=== PATIENT | female | born 1980 | race Hispanic/Latino ===

== ENCOUNTER 2022-01-17 14:20 | Emergency (ER) | payer BC ==
--- OUTSIDE RECORDS SUMMARY | 2022-01-17 14:26 | XMS REPORT | Continuity of Care Document ---
:1980 Author Organization [facility] t Address [address] [place] [address] Care Team Providers Name Role Phone Maranda De Oliveira Primary Care Physician [phone] Lan Perry Attending Clinician Unavailable MONTEZ ROSALES Attending Clinician Unavailable AKINCARLA PABLO Attending Clinician Unavailable [facility] Attending Clinician [phone] Luis TORRES, Jaimee Burgess Attending Clinician [facility] Attending Clinician Unavailable PINA NICOLE Attending Clinician Unavailable Pina Paul Attending Clinician Skye Carrasco MD Attending Clinician [phone] Doctor Unassigned, [employer] Attending Clinician Unavailable Aubrey TORRES, Garth Lam Attending Clinician [phone] Hemalatha Arenas MD Attending Clinician [phone] Johanny Elder MD Attending Clinician [facility] Attending Clinician Unavailable Hailey Conrad MD Attending Clinician HAILEY CONRAD Attending Clinician Unavailable Trimester, [facility] Res-1st Attending Clinician Unavailable THEO HUGHES Attending Clinician Unavailable Montez Rosales MD Attending Clinician YADIEL SHAFER Attending Clinician Unavailable Yadiel Shafer MD Attending Clinician DISHA BENAVIDEZ Attending Clinician Unavailable Risk, Ymu-Cjjhv-Lc/High Attending Clinician Unavailable Disha Ellis Attending Clinician NORA AMOR Attending Clinician Unavailable Nora Amor MD Attending Clinician Pcp, Patient Does Not Have A Attending Clinician [phone] Theo Hughes OD Attending Clinician KINGSTON KATZ Attending Clinician Unavailable Kingston Katz MD Attending Clinician ITZ BENAVIDEZ Attending Clinician Unavailable Itz Puentes Attending Clinician Deandra, Matty Yañez Attending Clinician Unavailable Matteo Harvey MD Attending Clinician MATTEO HARVEY Attending Clinician Unavailable ANTONIO BETANCOURT Attending Clinician Unavailable Antonio Betancourt MD Attending Clinician [phone] Leila Sanders MD Attending Clinician [phone] MONTEZ ROSALES Admitting Clinician Unavailable Montez Rosales MD Admitting Clinician ITZ BENAVIDEZ Admitting Clinician Unavailable Payers Payer Name Policy Type Policy Number Effective Date Expiration Date S marimar BCBS [facility] - [id number] 2020 OUT OF STATE 00:00:00 FORMERLY [facility] [id number] 2021 CHOICE MEDICAID 00:00:00 ENVOLVE BENEFIT [id number] 2021 OPTIONS 00:00:00 Problems Condition Condition Condition Status Onset Resolution Last Treating Co mments Source Name Details Category Date Date Treatment Clinician Date Molar Molar Disease Active Overview: Univer s 5-27 Formattin i ty of 00:00: g of this [place] 00 note is Medical different Branch from the original. oR Gynffi35 year oldAdmiss ion Date: 07/17/2021 Patient Phone#: [phone] 3LMP: 2CC: spotting and crampingE xam: Abdomen is soft. No mass palpated. No tendernes s present. There is no rigidity and no guarding. Control: UnknownIn itial bhc(06/21 0)--> 32812(06/21)--> 26.38(07/22)--> 10.89(07/23 4)--> 8.08(08/18 )Blood type: O+Hb.4Hct: 30Ultraso und Findings: TVUS 07/09/21In trauterin e gestation al sac No yolk sac or pole noted?No free fluid in posterior cul de sac?Bilat eral ovaries grossly normal ?TVUS 07/17/21In trauterin e gestation al sac seen, mean sac diameter of 1.87cm. No YS or FP seen. 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 Then monthly beta hCG x 3 months. 07/06/21 15:47 08/06/21 11:09 08/14/21 08:25 08/18/21 09:35 08/25/21 08:57 09/01/21 10:39 09/09/21 08:24 09/15/21 08:55 10/14/21 08:45 BETA HCG 35,101.00 26.38 10.89 8.08 5.52 3.89 3.09 <2.39 <2.39 Anembryoni Anembryoni Disease Active Overview : Univers c c 07-17 Formattin ity of 00:00: [place] of this [place] 00 note Medical might be Branch different from the original. Added automatic ally from request for surgery [id number] Chlamydia Chlamydia Disease Active Overview: Univers infection infection 07-08 Formattin i ty of during during 00:00: g of this [place] 00 note Medi jamil might be Branch different from the original. angus neg AMA AMA Disease Active Univers (advanced (advanced 4-13 ity of maternal maternal 00:00: [place] age) age) 00 Medical multigravi multigravi Br anch da 35+, da 35+, first first trimester trimester Multiparit Multiparit Disease Active U nivers y y 4-13 ity of 00:00: [place] 00 [facility] Pre-existi Pre-existi Disease Active U nivers ng type 2 ng type 2 4-13 ity of diabetes diabetes 00:00: [place] mellitus mellitus 00 Medica l during during Branch in first in first trimester trimester Obesity in Obesity in Disease Active U nivers 4-13 ity of 00:00: [place] [facility] Disease Active Uni vers with with 4-13 ity of inconclusi inconclus[place] Medica [place] viability, viability, Br anch single or single or unspecifie unspecifie d fetus d fetus Other Other Disease Active Univers general general 3-15 ity of counseling counseling [place] and advice and advice 00 De dical for for Branch contracept contracept justa justa management management Bacterial Bacterial Disease Active Uni vers vaginosis vaginosis 7-18 ity of 00:00: [place] [facility] Vaginal Vaginal Disease Active Univers zac zac 7-14 ity of 00:00: [place] 00 [facility] Hypertensi Hypertensi Disease Active U nivers on on 07-21 ity of 00:00: [place] [facility] Type 2 Type 2 Disease Active Overview: Univer s diabetes diabetes 07-21 Formattin ity of mellitus mellitus 00:00: g of this [place] as without without 00 note Medical complicati complicati might be Branch on, on, different unspecifie unspecifie from the d whether d whether original. 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 DM use use Previous Previous Disease Active Unive rs 07-21 ity of section section 00:00: [address] Allergies, Adverse Reactions, Alerts Allergy Allergy Status Severity Reaction(s) Onset Inactive Treating Comm ents Source Name Type Date Date Clinician NO KNOWN Drug Active Univers ALLERGIE Class ity of S [facility] Social History Social Habit Start Date Stop Date Quantity Comments Source History [facility] o f Alcohol Frequency [place] [facility] Branch History [facility] o f Alcohol Std [place] [facility] Drinks Branch History [facility] o f Alcohol Binge [place] [facility] al Branch Exposure to 2021-10-04 2021-10-14 Not sure [facility]-CoV-2 00:00:00 08:49:00 [facility] [place] [facility] (event) Branch Tobacco use and 2021-10-08 2021-10-08 Smokeless tobacco Un iversity of exposure 00:00:00 00:00:00 non-user [facility] Alcohol intake 2021-10-08 2021-10-08 Ex-drinker [place] of 00:00:00 00:00:00 (finding) [facility] Alcohol Comment 2014-05-30 2014-05-30 occasionally Univers ity of 00:00:00 00:00:00 [facility] Sex Ass[birth year] At [birth year] Universit y of 00:00:00 00:00:00 [facility] Smoking Status Start Date Stop Date Source Never smoked tobacco [facility] [place] Medications Ordered Filled Start Stop Current Ordering Indication Dosage Frequency Signature Comments Components Source Medication Medication Date Date Medication? Clinician (SIG) Name Name Dose 2021-02 No Unknown 0-20 00:00: 00 Dose 2021-0 No Unknown 8-18 00:00: 00 &lt 2021-0 No 8-11 00:00: 00 Dose 2021-0 No Unknown 8-11 00:00: 00 &lt 2021-0 No 18 8-08 00:00: 00 &lt 2021-0 No 500 8-08 00:00: 00 INJECT 2021-0 No UNITS BELOW 8-08 THE SKIN 17 00:00: UNITS EVERY 00 MORNING AND 35 UNITS AT BEDTIME &lt 2021-0 No 8-08 00:00: 00 INJECT 13 2021-0 No UNITS 7-30 SUBCUTANEOU 00:00: SLY EVERY 00 MORNING AND 30 UNITS AT BEDTIME Dose 2021-0 No Unknown 7-29 00:00: 00 fluticasone 2021-0 No 2mcg/ac propionate 7-29 tuation 50 00:00: mcg/actuati 00 on nasal spray,suspe nsion &lt 2021-0 No 7-29 00:00: 00 &lt 2021-0 No 18 7-29 00:00: 00 INJECT 2022-0 No UNDER THE 09-18 SKING 15 00:00: UNITS EVERY 00 MORNING AND 11 UNITS AT BEDTIME Sudafed 12 2021-0 No 1mg Hour 120 mg 09-18 tablet,exte 00:00: nded 00 release fluticasone 2021-0 No 2mcg/ac propionate 09-18 tuation 50 00:00: mcg/actuati 00 on nasal spray,suspe nsion &lt 2021-0 No 09-18 00:00: 00 &lt 2022-0 No 18 09-18 00:00: 00 INJECT 2021-0 No UNDER THE 09-18 SKING 15 00:00: UNITS EVERY 00 MORNING AND 11 UNITS AT BEDTIME TAKE 2 2022-0 No TABLETS BY 6-17 MOUTH DAILY 00:00: FOR 1 DAY. 00 TAKE 2 2-0 No TABLETS BY 6-17 MOUTH DAILY 00:00: FOR 1 DAY. 00 Novolin N 202-0 No (3 mL) Flexpen 100 6-16 unit/mL (3 00:00: mL) 00 subcutaneou s insulin pen Novolin R 2022-0 No (3 mL) Flexpen 100 6-16 unit/mL (3 00:00: mL) 00 subcutaneou s insulin pen TAKE 1 2021-0 No TABLET BY 6-16 MOUTH EVERY 00:00: DAY 00 &lt 2022-0 No 6-16 00:00: 00 INJECT 13 2-0 No UNITS 6-16 SUBCUTANEOU 00:00: SLY EVERY 00 MORNING AND 30 UNITS AT BEDTIME Novolin N 2022-0 No (3 mL) Flexpen 100 6-16 unit/mL (3 00:00: mL) 00 subcutaneou s insulin pen Novolin R 2022-0 No (3 mL) Flexpen 100 6-16 unit/mL (3 00:00: mL) 00 subcutaneou s insulin pen TAKE 1 2021-0 No TABLET BY 6-16 MOUTH EVERY 00:00: DAY 00 &lt 2022-0 No 6-16 00:00: 00 INJECT 13 2022-0 No UNITS 6-16 SUBCUTANEOU 00:00: SLY EVERY 00 MORNING AND 30 UNITS AT BEDTIME &lt 2022-0 No 6-15 00:00: 00 &lt 2022-0 No 6-15 00:00: 00 liraglutide 2021-0 Yes inject Univ ers (VICTOZA 5-31 under the ity of 2-SHONDA) 0.6 17:03: skin. [place] mg/0.1 mL 56 Medical (18 mg/3 Branch mL) injection insulin 2021-0 Yes inject Univers degludec 5-31 under the ity of (TRESIBA 17:03: skin. [place] FLEXTOUCH 56 Medical U-100 SC) Branch liraglutide 2021-0 Yes inject Univ ers (VICTOZA 5-31 under the ity of 2-SHONDA) 0.6 17:03: skin. [place] mg/0.1 mL 56 Medical (18 mg/3 Branch mL) injection insulin 2021-0 Yes inject Univers degludec 5-31 under the ity of (TRESIBA 17:03: skin. [place] FLEXTOUCH 56 Medical U-100 SC) Branch liraglutide 2021-0 Yes inject Univ ers (VICTOZA 5-31 under the ity of 2-SHONDA) 0.6 17:03: skin. [place] mg/0.1 mL 56 Medical (18 mg/3 Branch mL) injection insulin 2021-0 Yes inject Univers degludec 5-31 under the ity of (TRESIBA 17:03: skin. [place] FLEXTOUCH 56 Medical U-100 SC) Branch liraglutide 2021-0 Yes inject Univ ers (VICTOZA 5-31 under the ity of 2-SHONDA) 0.6 17:03: skin. [place] mg/0.1 mL 56 Medical (18 mg/3 Branch mL) injection insulin 2021-0 Yes inject Univers degludec 5-31 under the ity of (TRESIBA 17:03: skin. [place] FLEXTOUCH 56 Medical U-100 SC) Branch liraglutide 2021-0 Yes inject Univ ers (VICTOZA 5-31 under the ity of 2-SHONDA) 0.6 17:03: skin. [place] mg/0.1 mL 56 Medical (18 mg/3 Branch mL) injection insulin 2021-0 Yes inject Univers degludec 5-31 under the ity of (TRESIBA 17:03: skin. [place] FLEXTOUCH 56 Medical U-100 SC) Branch liraglutide 2021-0 Yes inject Univ ers (VICTOZA 5-31 under the ity of 2-SHONDA) 0.6 17:03: skin. [place] mg/0.1 mL 56 Medical (18 mg/3 Branch mL) injection insulin 2021-0 Yes inject Univers degludec 5-31 under the ity of (TRESIBA 17:03: skin. [place] FLEXTOUCH 56 Medical U-100 SC) Branch liraglutide 2021-0 Yes inject Univ ers (VICTOZA 5-31 under the ity of 2-SHONDA) 0.6 17:03: skin. [place] mg/0.1 mL 56 Medical (18 mg/3 Branch mL) injection insulin 2021-0 Yes inject Univers degludec 5-31 under the ity of (TRESIBA 17:03: skin. [place] FLEXTOUCH 56 Medical U-100 SC) Branch liraglutide 2021-0 Yes inject Univ ers (VICTOZA 5-31 under the ity of 2-SHONDA) 0.6 17:03: skin. [place] mg/0.1 mL 56 Medical (18 mg/3 Branch mL) injection insulin 2021-0 Yes inject Univers degludec 5-31 under the ity of (TRESIBA 17:03: skin. [place] FLEXTOUCH 56 Medical U-100 SC) Branch liraglutide 2021-0 Yes inject Univ ers (VICTOZA 5-31 under the ity of 2-SHONDA) 0.6 17:03: skin. [place] mg/0.1 mL 56 Medical (18 mg/3 Branch mL) injection insulin 2021-0 Yes inject Univers degludec 5-31 under the ity of (TRESIBA 17:03: skin. [place] FLEXTOUCH 56 Medical U-100 SC) Branch liraglutide 2021-0 Yes inject Univ ers (VICTOZA 5-31 under the ity of 2-SHONDA) 0.6 17:03: skin. [place] mg/0.1 mL 56 Medical (18 mg/3 Branch mL) injection insulin 2-0 Yes inject Univers degludec 5-31 under the ity of (TRESIBA 17:03: skin. [place] FLEXTOUCH 56 Medical U-100 SC) Branch liraglutide 2021-0 Yes inject Univ ers (VICTOZA 5-31 under the ity of 2-SHONDA) 0.6 17:03: skin. [place] mg/0.1 mL 56 Medical (18 mg/3 Branch mL) injection insulin 0 Yes inject Univers degludec 5-31 under the ity of (TRESIBA 17:03: skin. [place] FLEXTOUCH 56 Medical U-100 SC) Branch ibuprofen 0 Yes [id number] 800mg Take 1 U nivers 800 mg 5-31 tablet by ity of tablet 00:00: mouth [place] 00 every 6 Medical (six) Branch hours as needed for Pain (scale 1-3) or Pain (scale 4-6). ibuprofen 0 Yes [id number] 800mg Take 1 U nivers 800 mg 5-31 tablet by ity of tablet 00:00: mouth [place] 00 every 6 Medical (six) Branch hours as needed for Pain (scale 1-3) or Pain (scale 4-6). ibuprofen 0 Yes [id number] 800mg Take 1 U nivers 800 mg 5-31 tablet by ity of tablet 00:00: mouth [place] 00 every 6 Medical (six) Branch hours as needed for Pain (scale 1-3) or Pain (scale 4-6). ibuprofen 0 Yes [id number] 800mg Take 1 U nivers 800 mg 5-31 tablet by ity of tablet 00:00: mouth [place] 00 every 6 Medical (six) Branch hours as needed for Pain (scale 1-3) or Pain (scale 4-6). ibuprofen 0 Yes [id number] 800mg Take 1 U nivers 800 mg 5-31 tablet by ity of tablet 00:00: mouth [place] 00 every 6 Medical (six) Branch hours as needed for Pain (scale 1-3) or Pain (scale 4-6). ibuprofen 2021-0 Yes [id number] 800mg Take 1 U nivers 800 mg 5-31 tablet by ity of tablet 00:00: mouth [place] 00 every 6 Medical (six) Branch hours as needed for Pain (scale 1-3) or Pain (scale 4-6). ibuprofen 2021-0 Yes [id number] 800mg Take 1 U nivers 800 mg 5-31 tablet by ity of tablet 00:00: mouth [place] 00 every 6 Medical (six) Branch hours as needed for Pain (scale 1-3) or Pain (scale 4-6). ibuprofen 2021-0 Yes [id number] 800mg Take 1 U nivers 800 mg 5-31 tablet by ity of tablet 00:00: mouth [place] 00 every 6 Medical (six) Branch hours as needed for Pain (scale 1-3) or Pain (scale 4-6). ibuprofen Yes [id number] 800mg Take 1 U nivers 800 mg 5-31 tablet by ity of tablet 00:00: mouth [place] 00 every 6 Medical (six) Branch hours as needed for Pain (scale 1-3) or Pain (scale 4-6). ibuprofen Yes [id number] 800mg Take 1 U nivers 800 mg 5-31 tablet by ity of tablet 00:00: mouth [place] 00 every 6 Medical (six) Branch hours as needed for Pain (scale 1-3) or Pain (scale 4-6). ibuprofen Yes [id number] 800mg Take 1 U nivers 800 mg 5-31 tablet by ity of tablet 00:00: mouth [place] 00 every 6 Medical (six) Branch hours as needed for Pain (scale 1-3) or Pain (scale 4-6). insulin Yes [id number] 15 units Un js regular 5-26 QAM and 17 ity of human 00:00: units [facility] (NOVOLIN R 00 Medical REGULAR Branch U-100 INSULN) 100 unit/mL injection insulin NPH Yes [id number] 15units Univers (NOVOLIN N 5-26 QAM and 32 ity of NPH U-100 00:00: at [facility] INSULIN) 00 Medical 100 unit/mL Branch injection insulin Yes [id number] 15 units Un js regular 5-26 QAM and 17 ity of human 00:00: units [facility] (NOVOLIN R 00 Medical REGULAR Branch U-100 INSULN) 100 unit/mL injection insulin NPH Yes [id number] 15units Univers (NOVOLIN N 5-26 QAM and 32 ity of NPH U-100 00:00: at [facility] INSULIN) 00 Medical 100 unit/mL Branch injection insulin Yes [id number] 15 units Un js regular 5-26 QAM and 17 ity of human 00:00: units [facility] (NOVOLIN R 00 Medical REGULAR Branch U-100 INSULN) 100 unit/mL injection insulin NPH 2022-0 Yes [id number] 15units Univers (NOVOLIN N 5-26 QAM and 32 ity of NPH U-100 00:00: at [facility] INSULIN) 00 Medical 100 unit/mL Branch injection insulin 2021-0 Yes [id number] 15 units Un js regular 5-26 QAM and 17 ity of human 00:00: units [facility] (NOVOLIN R 00 Medical REGULAR Branch U-100 INSULN) 100 unit/mL injection insulin NPH 2021-0 Yes [id number] 15units Univers (NOVOLIN N 5-26 QAM and 32 ity of NPH U-100 00:00: at [facility] INSULIN) 00 Medical 100 unit/mL Branch injection insulin 2021-0 Yes [id number] 15 units Un js regular 5-26 QAM and 17 ity of human 00:00: units [facility] (NOVOLIN R 00 Medical REGULAR Branch U-100 INSULN) 100 unit/mL injection insulin NPH 2021-0 Yes [id number] 15units Univers (NOVOLIN N 5-26 QAM and 32 ity of NPH U-100 00:00: at [facility] INSULIN) 00 Medical 100 unit/mL Branch injection insulin 2021-0 Yes [id number] 15 units Un js regular 5-26 QAM and 17 ity of human 00:00: units [facility] (NOVOLIN R 00 Medical REGULAR Branch U-100 INSULN) 100 unit/mL injection insulin NPH 2021-0 Yes [id number] 15units Univers (NOVOLIN N 5-26 QAM and 32 ity of NPH U-100 00:00: at [facility] INSULIN) 00 Medical 100 unit/mL Branch injection insulin 2021-0 Yes [id number] 15 units Un js regular 5-26 QAM and 17 ity of human 00:00: units [facility] (NOVOLIN R 00 Medical REGULAR Branch U-100 INSULN) 100 unit/mL injection insulin NPH 2021-0 Yes [id number] 15units Univers (NOVOLIN N 5-26 QAM and 32 ity of NPH U-100 00:00: at [facility] INSULIN) 00 Medical 100 unit/mL Branch injection insulin 2021-0 Yes [id number] 15 units Un js regular 5-26 QAM and 17 ity of human 00:00: units [facility] (NOVOLIN R 00 Medical REGULAR Branch U-100 INSULN) 100 unit/mL injection insulin NPH 202-0 Yes [id number] 15units Univers (NOVOLIN N 5-26 QAM and 32 ity of NPH U-100 00:00: at [facility] INSULIN) 00 Medical 100 unit/mL Branch injection insulin 2021-0 Yes [id number] 15 units Un js regular 5-26 QAM and 17 ity of human 00:00: units [facility] (NOVOLIN R 00 Medical REGULAR Branch U-100 INSULN) 100 unit/mL injection insulin NPH 2021-0 Yes [id number] 15units Univers (NOVOLIN N 5-26 QAM and 32 ity of NPH U-100 00:00: at [facility] INSULIN) 00 Medical 100 unit/mL Branch injection insulin 2021-0 Yes [id number] 15 units Un js regular 5-26 QAM and 17 ity of human 00:00: units [facility] (NOVOLIN R 00 Medical REGULAR Branch U-100 INSULN) 100 unit/mL injection insulin NPH 2021-0 Yes [id number] 15units Univers (NOVOLIN N 5-26 QAM and 32 ity of NPH U-100 00:00: at [facility] INSULIN) 00 Medical 100 unit/mL Branch injection insulin 2021-0 Yes [id number] 15 units Un sj regular 5-26 QAM and 17 ity of human 00:00: units [facility] (NOVOLIN R 00 Medical REGULAR Branch U-100 INSULN) 100 unit/mL injection insulin NPH 2021-0 Yes [id number] 15units Univers (NOVOLIN N 5-26 QAM and 32 ity of NPH U-100 00:00: at [facility] INSULIN) 00 Medical 100 unit/mL Branch injection Blood 2021-0 Yes [id number] Use as Univer s Pressure 4-25 directed ity of Monitor Kit 00:00: [place] 00 Medical Branch Insulin 2021-0 Yes [id number] Use as Univ ers Syringe-Nee 4-25 directed ity of dle U-100 00:00: [place] (BD INSULIN 00 Medical SYRINGE Branch MICROFINE) 1 mL 27 gauge x 5/8" Syrg Blood 2021-0 Yes [id number] Use as Univer s Pressure 4-25 directed ity of Monitor Kit 00:00: [place] 00 Medical Branch Insulin 2-0 Yes [id number] Use as Univ ers Syringe-Nee 4-25 directed ity of dle U-100 00:00: [place] (BD INSULIN 00 Medical SYRINGE Branch MICROFINE) 1 mL 27 gauge x 5/8" Syrg Blood 2-0 Yes [id number] Use as Univer s Pressure 4-25 directed ity of Monitor Kit 00:00: [place] 00 Medical Branch Insulin 2-0 Yes [id number] Use as Univ ers Syringe-Nee 4-25 directed ity of dle U-100 00:00: [place] (BD INSULIN 00 Medical SYRINGE Branch MICROFINE) 1 mL 27 gauge x 5/8" Syrg Blood 2021-0 Yes [id number] Use as Univer s Pressure 4-25 directed ity of Monitor Kit 00:00: [place] 00 Medical Branch Insulin 2021-0 Yes [id number] Use as Univ ers Syringe-Nee 4-25 directed ity of dle U-100 00:00: [place] (BD INSULIN 00 Medical SYRINGE Branch MICROFINE) 1 mL 27 gauge x 5/8" Syrg Blood 2-0 Yes [id number] Use as Univer s Pressure 4-25 directed ity of Monitor Kit 00:00: [place] 00 Medical Branch Insulin 2-0 Yes [id number] Use as Univ ers Syringe-Nee 4-25 directed ity of dle U-100 00:00: [place] (BD INSULIN 00 Medical SYRINGE Branch MICROFINE) 1 mL 27 gauge x 5/8" Syrg Blood 2-0 Yes [id number] Use as Univer s Pressure 4-25 directed ity of Monitor Kit 00:00: [place] 00 Medical Branch Insulin 2-0 Yes [id number] Use as Univ ers Syringe-Nee 4-25 directed ity of dle U-100 00:00: [place] (BD INSULIN 00 Medical SYRINGE Branch MICROFINE) 1 mL 27 gauge x 5/8" Syrg Blood 2-0 Yes [id number] Use as Univer s Pressure 4-25 directed ity of Monitor Kit 00:00: [place] 00 Medical Branch Insulin 2022-0 Yes [id number] Use as Univ ers Syringe-Nee 4-25 directed ity of dle U-100 00:00: [place] (BD INSULIN 00 Medical SYRINGE Branch MICROFINE) 1 mL 27 gauge x 5/8" Syrg Blood 2021-0 Yes [id number] Use as Univer s Pressure 4-25 directed ity of Monitor Kit 00:00: [place] 00 Medical Branch Insulin 2021-0 Yes [id number] Use as Univ ers Syringe-Nee 4-25 directed ity of dle U-100 00:00: [place] (BD INSULIN 00 Medical SYRINGE Branch MICROFINE) 1 mL 27 gauge x 5/8" Syrg Blood 2021-0 Yes [id number] Use as Univer s Pressure 4-25 directed ity of Monitor Kit 00:00: Medical Branch Insulin 2021-0 Yes [id number] Use as Univ ers Syringe-Nee 4-25 directed ity of dle U-100 00:00: [place] (BD INSULIN 00 Medical SYRINGE Branch MICROFINE) 1 mL 27 gauge x 5/8" Syrg Blood 2021-0 Yes [id number] Use as Univer s Pressure 4-25 directed ity of Monitor Kit 00:00: Medical Branch Insulin 2021-0 Yes [id number] Use as Univ ers Syringe-Nee 4-25 directed ity of dle U-100 00:00: [place] (BD INSULIN 00 Medical SYRINGE Branch MICROFINE) 1 mL 27 gauge x 5/8" Syrg Blood 2021-0 Yes [id number] Use as Univer s Pressure 4-25 directed ity of Monitor Kit 00:00: Medical Branch Insulin 2021-0 Yes [id number] Use as Univ ers Syringe-Nee 4-25 directed ity of dle U-100 00:00: [place] (BD INSULIN 00 Medical SYRINGE Branch MICROFINE) 1 mL 27 gauge x 5/8" Syrg 2021-0 Yes [id number] 1{packe Take 1 Univers vit 4-13 t} Packet by ity of 33-iron-fol 00:00: mouth [place] ic-dha 00 daily. Medical (SELECT-OB Branch + DHA) 29 mg iron-1 mg -250 mg combo pack Yes [id number] 1{packe Take 1 Univers vit 4-13 t} Packet by ity of 33-iron-fol 00:00: mouth [place] ic-dha 00 daily. Medical (SELECT-OB Branch + DHA) 29 mg iron-1 mg -250 mg combo pack Yes [id number] 1{packe Take 1 Univers vit 4-13 t} Packet by ity of 33-iron-fol 00:00: mouth [place] ic-dha 00 daily. Medical (SELECT-OB Branch + DHA) 29 mg iron-1 mg -250 mg combo pack Yes [id number] 1{packe Take 1 Univers vit 4-13 t} Packet by ity of 33-iron-fol 00:00: mouth [place] ic-dha 00 daily. Medical (SELECT-OB Branch + DHA) 29 mg iron-1 mg -250 mg combo pack Yes [id number] 1{packe Take 1 Univers vit 4-13 t} Packet by ity of 33-iron-fol 00:00: mouth [place] ic-dha 00 daily. Medical (SELECT-OB Branch + DHA) 29 mg iron-1 mg -250 mg combo pack Yes [id number] 1{packe Take 1 Univers vit 4-13 t} Packet by ity of 33-iron-fol 00:00: mouth [place] ic-dha 00 daily. Medical (SELECT-OB Branch + DHA) 29 mg iron-1 mg -250 mg combo pack Yes [id number] 1{packe Take 1 Univers vit 4-13 t} Packet by ity of 33-iron-fol 00:00: mouth [place] ic-dha 00 daily. Medical (SELECT-OB Branch + DHA) 29 mg iron-1 mg -250 mg combo pack Yes [id number] 1{packe Take 1 Univers vit 4-13 t} Packet by ity of 33-iron-fol 00:00: mouth [place] ic-dha 00 daily. Medical (SELECT-OB Branch + DHA) 29 mg iron-1 mg -250 mg combo pack Yes [id number] 1{packe Take 1 Univers vit 4-13 t} Packet by ity of 33-iron-fol 00:00: mouth [place] ic-dha 00 daily. Medical (SELECT-OB Branch + DHA) 29 mg iron-1 mg -250 mg combo pack Yes [id number] 1{packe Take 1 Univers vit 4-13 t} Packet by ity of 33-iron-fol 00:00: mouth [place] ic-dha 00 daily. Medical (SELECT-OB Branch + DHA) 29 mg iron-1 mg -250 mg combo pack Yes [id number] 1{packe Take 1 Univers vit 4-13 t} Packet by ity of 33-iron-fol 00:00: mouth [place] ic-dha 00 daily. Medical ([facility]) 29 mg iron-1 mg -250 mg combo pack Dose 2020-02 No Unknown 2-14 00:00: 00 Dose 2020- No Unknown 2-14 00:00: 00 Dose 2020- No Unknown 2-14 00:00: 00 Dose 2020- No Unknown 2-14 00:00: 00 glipizide 5 2020-0 No 1mg mg tablet 10-16 00:00: 00 glipizide 5 2020-0 No 1mg mg tablet 10-16 00:00: 00 glipizide 5 2020-0 No 1mg mg tablet 10-16 00:00: 00 glipizide 5 0 No 1mg mg tablet 10-16 00:00: 00 Victoza 2020-0 No (18 3-Shonda 0.6 5-03 mg/3 mg/0.1 mL 00:00: mL) (18 mg/3 00 mL) subcutaneou s pen injector Victoza 2020-0 No (18 3-Shonda 0.6 5-03 mg/3 mg/0.1 mL 00:00: mL) (18 mg/3 00 mL) subcutaneou s pen injector Tresiba 2020-0 No unit/mL U-100 5-03 Insulin 100 00:00: unit/mL 00 subcutaneou s solution Tresiba 2020-0 No unit/mL U-100 5-03 Insulin 100 00:00: unit/mL 00 subcutaneou s solution ibuprofen 2020-0 No 1mg 600 mg 4-30 tablet 00:00: 00 Bromfed DM 2020-0 No 10mg/5 2 mg-30 4-30 mL mg-10 mg/5 00:00: mL oral 00 syrup ibuprofen 2020-0 No 1mg 600 mg 4-30 tablet 00:00: 00 Bromfed DM 2020-0 No 10mg/5 2 mg-30 4-30 mL mg-10 mg/5 00:00: mL oral 00 syrup Protonix 40 1-0 No 1mg mg 3-12 tablet,jessica 00:00: yed release 00 Zofran 4 mg 2021-0 No 1mg tablet 3-12 00:00: 00 Protonix 40 2021-0 No 1mg mg 3-12 tablet,jessica 00:00: yed release 00 Zofran 4 mg 2021-0 No 1mg tablet 3-12 00:00: 00 Bromfed DM 2019-0 No 10mg/5 2 mg-30 9-12 mL mg-10 mg/5 00:00: mL oral 00 syrup Bromfed DM 2019-0 No 10mg/5 2 mg-30 9-12 mL mg-10 mg/5 00:00: mL oral 00 syrup glipizide 5 2016- No 1mg mg tablet 0-16 00:00: 00 lovastatin 2017-1 No 1mg 20 mg 0-16 tablet 00:00: 00 metformin 2017-1 No 1mg 500 mg 0-16 tablet 00:00: 00 glipizide 5 2016- No 1mg mg tablet 0-16 00:00: 00 lovastatin 2017-1 No 1mg 20 mg 0-16 tablet 00:00: 00 metformin 2017-1 No 1mg 500 mg 0-16 tablet 00:00: 00 metformin 2017-1 No 1mg 500 mg 0-09 tablet 00:00: 00 metformin 2017-1 No 1mg 500 mg 0-09 tablet 00:00: 00 Immunizations Ordered Filled Immunization Date Status Comments Sour e Immunization Name Name Influenza, 2016-11-29 Completed seasonal, inj 00:00:00 Influenza, 2016-11-29 Completed seasonal, inj 00:00:00 TDAP 2014-05-30 Completed [facility] 00:00:00 [facility] TDAP 2014-05-30 Completed [facility] 00:00:00 [facility] TDAP 2014-05-30 Completed [facility] 00:00:00 [facility] TDAP 2014-05-30 Completed [place] [facility] 00:00:00 [facility] TDAP 2014-05-30 Completed [facility] 00:00:00 [facility] TDAP 2014-05-30 Completed [facility] 00:00:00 [facility] TDAP 2014-05-30 Completed [facility] 00:00:00 [facility] TDAP 2014-05-30 Completed [facility] 00:00:00 [facility] TDAP 2014-05-30 Completed University [facility] 00:00:00 [facility] TDAP 2014-05-30 Completed [facility] 00:00:00 [facility] TDAP 2014-05-30 Completed [facility] of 00:00:00 [facility] Td 2003-02-21 Completed University of 00:00:00 [facility] Td 2003-02-21 Completed University of 00:00:00 [facility] Td 2003-02-21 Completed [facility] 00:00:00 [facility] Td 2003-02-21 Completed [facility] 00:00:00 [facility] Td 2003-02-21 Completed [facility] 00:00:00 [facility] Td 2003-02-21 Completed [facility] 00:00:00 [facility] Td 2003-02-21 Completed University of 00:00:00 [facility] Td 2003-02-21 Completed University of 00:00:00 [facility] Td 2003-02-21 Completed University of 00:00:00 [facility] Td 2003-02-21 Completed University of 00:00:00 [facility] Td 2003-02-21 Completed University of 00:00:00 [facility] Vital Signs Vital Name Observation Time Observation Value Comments Source BP Systolic 2021-12-26 10:51:00 BP Diastolic 2021-12-26 10:51:00 Weight Measured 2021-12-26 10:51:00 195.00 pounds Height Measured 2021-12-26 10:51:00 59.00 inches Body Temperature 2021-12-26 10:51:00 Heart Rate 2021-12-26 10:51:00 Respiratory Rate 2021-12-26 10:51:00 BP Systolic 2021-08-06 17:03:00 136 mm[Hg] BP Diastolic 2021-08-06 17:03:00 88 mm[Hg] Weight Measured 2021-08-06 17:03:00 197.80 pounds Height Measured 2021-08-06 17:03:00 59.00 inches Body Temperature 2021-08-06 17:03:00 98.40 degrees Heart Rate 2021-08-06 17:03:00 99.00 /min Respiratory Rate 2021-08-06 17:03:00 BP Systolic 2021-02-03 14:16:00 132 mm[Hg] BP Diastolic 2021-02-03 14:16:00 89 mm[Hg] Weight Measured 2021-02-03 14:16:00 185.20 pounds Height Measured 2021-02-03 14:16:00 59.00 inches Body Temperature 2021-02-03 14:16:00 98.30 degrees Heart Rate 2021-02-03 14:16:00 93.00 /min Respiratory Rate 2021-02-03 14:16:00 16.00 /min BP Systolic 2020-06-23 16:43:00 135 mm[Hg] BP Diastolic 2020-06-23 16:43:00 84 mm[Hg] Weight Measured 2020-06-23 16:43:00 184.00 pounds Height Measured 2020-06-23 16:43:00 59.00 inches Body Temperature 2020-06-23 16:43:00 98.00 degrees Heart Rate 2020-06-23 16:43:00 74.00 /min Respiratory Rate 2020-06-23 16:43:00 17.00 /min BP Systolic 2020-06-20 09:06:00 128 mm[Hg] BP Diastolic 2020-06-20 09:06:00 84 mm[Hg] Weight Measured 2020-06-20 09:06:00 185.40 pounds Height Measured 2020-06-20 09:06:00 59.00 inches Body Temperature 2020-06-20 09:06:00 97.69 degrees Heart Rate 2020-06-20 09:06:00 67.00 /min Respiratory Rate 2020-06-20 09:06:00 17.00 /min BP Systolic 2018-11-02 16:52:00 143 mm[Hg] BP Diastolic 2018-11-02 16:52:00 77 mm[Hg] Weight Measured 2018-11-02 16:52:00 184.80 pounds Height Measured 2018-11-02 16:52:00 59.00 inches Body Temperature 2018-11-02 16:52:00 98.10 degrees Heart Rate 2018-11-02 16:52:00 84.00 /min Respiratory Rate 2018-11-02 16:52:00 16.00 /min BP Systolic 2016-11-29 14:14:00 149 mm[Hg] BP Diastolic 2016-11-29 14:14:00 89 mm[Hg] Weight Measured 2016-11-29 14:14:00 194.40 pounds Height Measured 2016-11-29 14:14:00 59.00 inches Body Temperature 2016-11-29 14:14:00 98.30 degrees Heart Rate 2016-11-29 14:14:00 82.00 /min Respiratory Rate 2016-11-29 14:14:00 16.00 /min Procedures Procedure Date / Time Performed Performing Clinician [facility] e TOTAL BETA HCG ASSAY 2021-12-01 15:25:00 Skye Carrasco [facility] TOTAL BETA HCG ASSAY 2021-10-14 13:45:00 Skye Carrasco [facility] DISCLOSURE AND CONSENT 2021-10-08 05:01:00 Doctor Unassigned, No University [facility] MEDICAL & SURGICAL Name Medical Bran h PROCEDURES - FEMALM Plan of Care Planned Activity Planned Date Details Comments Source Goal Plan of Care Note [code = 60560-2] Goal Plan of Care Note [code = 82426-5] Goal Plan of Care Note [code = 02487-7] Goal Plan of Care Note [code = 99551-2] Goal Plan of Care Note [code = 44338-4] Goal Plan of Care Note [code = 95507-8] Goal Plan of Care Note [code = 44036-7] Goal Plan of Care Note [code = 85388-9] Goal Plan of Care Note [code = 29388-5] Goal Plan of Care Note [code = 28766-1] Goal Plan of Care Note [code = 44981-1] Goal Plan of Care Note [code = 60925-5] Goal Plan of Care Note [code = 07561-4] Goal Plan of Care Note [code = 14855-4] Goal Plan of Care Note [code = 28644-9] Goal Plan of Care Note [code = 70225-3] Goal Plan of Care Note [code = 54386-8] Goal Plan of Care Note [code = 08777-0] Goal Plan of Care Note [code = 60356-6] Goal Plan of Care Note [code = 41553-1] Goal Plan of Care Note [code = 46375-6] Goal Plan of Care Note [code = 50243-7] Goal Plan of Care Note [code = 43515-6] Goal Plan of Care Note [code = 02205-5] Goal Plan of Care Note [code = 27457-8] Goal Plan of Care Note [code = 25066-9] Goal Plan of Care Note [code = 31415-5] Goal Plan of Care Note [code = 97363-0] Goal Plan of Care Note [code = 93978-6] Goal Plan of Care Note [code = 36896-9] Goal Plan of Care Note [code = 67974-4] Goal Plan of Care Note [code = 85673-5] Goal Plan of Care Note [code = 13771-4] Goal Plan of Care Note [code = 70929-2] Goal Plan of Care Note [code = 46028-4] Goal Plan of Care Note [code = 71983-1] Goal Plan of Care Note [code = 10394-8] Goal Plan of Care Note [code = 39041-0] Goal Plan of Care Note [code = 96236-7] Goal Plan of Care Note [code = 62207-6] Goal Plan of Care Note [code = 48951-3] Goal Plan of Care Note [code = 20276-8] Goal Plan of Care Note [code = 58969-1] Goal Plan of Care Note [code = 61208-9] Goal Plan of Care Note [code = 69685-8] Goal Plan of Care Note [code = 23991-8] Goal Plan of Care Note [code = 27013-8] Encounters Start End Encounter Admission Attending Care Care Encounter Source Date/Time Date/Time Type Type Clinicians Facility Department ID 2021-12-24 Outpatient PerryLAXMI [facility] [id number] Common 13:41:03 [facility] 2021-12-21 Outpatient PerryLAXMI [facility] [id number] Common 14:56:04 Lan [facility] 2021-12-10 Outpatient PerryLAXMI castillo [facility] [id number] Common 10:58:07 Lan [facility] 2021-11-06 Outpatient PerryLAXMI castillo [facility] [id number] Common 10:57:01 Lan [facility] 2021-07-17 Outpatient R JAN [facility] ENVIRONMENTAL ENGINEERING PROFESSOR [id number] Univers 13:03:19 MONTEZ grimm [facility] 2022-01-19 2022-01-19 Outpatient Russ VALERIO [facility] [id number] Univers 14:00:00 14:00:00 CARLA grimm o f [facility] 2022-01-01 2022-01-01 [facility] 1.2.840.114 [id number] Univers 00:00:00 00:00:00 Carla Yang ROTARY CUTTER OPERATOR 350.1.13.10 ity of [facility] 4.2.7.2.686 Shaji as MATERNAL [phone] Med ical & CHILD [address] [place] [address] 2021-12-26 2021-12-26 Outpatient [facility] [id number] Javad 13:06:31 13:06:31 [address] [place] 2021-12-26 2021-12-26 Outpatient [id number] 00:00:00 00:00:00 Visit [id number] 2021-12-04 2021-12-04 CAS [place] 1.2.376.005 [id number] Univers 00:00:00 00:00:00 Management [facility] 350.1.13.10 ity of [facility] [phone] [address] 2021-12-01 2021-12-01 Irrigation Flume Layer Lab, Ang-Rmchp [facility] 1.2.840. 114 [id number] Univers 10:30:00 10:30:00 Visit Carla Valerio ROTARY CUTTER OPERATOR 350.1.13. 10 ity of [facility] 4.2.7.2.686 Shaji as MATERNAL [phone] [facility] ical & CHILD [address] [place] [address] 2021-12-01 2021-12-01 Outpatient Russ VALERIO [facility] [id number] Univers 10:30:00 10:24:12 CARLA grimm o nica [facility] 2021-11-25 2021-11-25 Outpatient R MARTISIPE, [facility] [id number] Univers 08:15:00 08:15:00 CARLA grimm o nica [facility] 2021-11-20 2021-11-20 Office Iman, [facility] 1.2.512.133 [id number] Univers 09:30:00 09:45:00 Visit Carla Yang ROTARY CUTTER OPERATOR 350.1.13.10 ity of [facility] 4.2.7.2.686 Shaji as MATERNAL [phone] [facility] [address] [place] [address] 2021-11-20 2021-11-20 Outpatient R AKINMECHELLEPE, [facility] [id number] Univers 09:30:00 09:30:[address] [facility] 2021-11-20 2021-11-20 Outpatient R AKINSIPE, [facility] [id number] Univers 09:30:00 09:30:[address] [facility] 2021-11-20 2021-11-20 Outpatient R AKINSIPE, [facility] [id number] Univers 09:30:00 09:30:[address] [facility] 2021-10-14 2021-10-14 Outpatient R BONNIE, [facility] [id number] Univers 08:30:00 08:47:[address] [facility] 2021-10-14 2021-10-14 Irrigation Flume Layer Lab, [facility] 1.2.840. 114 [id number] Univers 08:30:00 08:47:47 Visit Nicole, Pina R ROTARY CUTTER OPERATOR 350.1.13.10 ity of [facility] 4.2.7.2.686 Shaji as MATERNAL [phone] [facility] [address] [place] [address] 2021-10-13 2021-10-13 Telephone Iman, [facility] 1.2.840.114 [id number] [facility] 00:00:00 00:00:00 Carla Yang ROTARY CUTTER OPERATOR 350.1.13.10 ity of REGIONAL 4.2.7.2.686 Shaji as MATERNAL [phone] [facility] [address] [place] [address] 2021-10-09 2021-10-09 Office [facility] 1.2.095.458 [id number] Univers 09:00:00 09:30:00 Visit Carla C ROTARY CUTTER OPERATOR 350.1.13.10 ity of REGIONAL 4.2.7.2.686 Shaji as MATERNAL [phone] [facility] [address] [place] [address] 2021-10-09 2021-10-09 Telephone [facility] 1.2.840.114 [id number] Univers 00:00:00 00:00:00 Carla C ROTARY CUTTER OPERATOR 350.1.13.10 ity of [facility] 4.2.7.2.686 Shaji as MATERNAL [phone] [facility] & CHILD [address] [place] [address] 2021-10-08 2021-10-08 Office [facility] 1.2.560.659 [id number] Univers 14:15:00 15:27:10 Visit [facility] C ROTARY CUTTER OPERATOR 350.1.13.10 ity of [facility] 4.2.7.2.686 Shaji as MATERNAL [phone] [facility] & [address] 2021-10-08 2021-10-[address] [facility] [id number] Univers 14:15:00 15:27:10 CARLA ity o f [facility] 2021-10-08 2021-10-[address] [facility] [id number] Univers 14:15:00 14:15:00 CARLA ity o f [facility] 2021-10-08 2021-10-08 CAS [place] 1.2.840.114 [id number] Univers 00:00:00 00:00:00 Management Skye Y HEALTH 350.1.13.10 ity of [facility] [phone] [address] 2021-10-08 2021-10-08 Orders Doctor NIEVES 1.2.840.114 [id number] Univers 00:00:00 00:00:00 Only Unassigned, VADIM 350.1.13.10 ity of [facility] 4.2.7.2.686 Shaji as [phone] [address] 2021-09-18 2021-09-18 [facility] 1.2.023.514 [id number] Univers 00:00:00 00:00:00 Carla Yang ROTARY CUTTER OPERATOR 350.1.13.10 ity of [facility] 4.2.7.2.686 Shaij as MATERNAL [phone] [facility] [address] [place] [address] 2021-09-18 2021-09-18 Outpatient [id number] 00:00:00 00:00:00 Visit [id number] 2021-09-16 2021-09-16 Telephone LIZBETH Burgos 1.2.840.114 [id number] [facility] 00:00:00 00:00:00 Garth FIERRO 350.1.13.10 it y of [facility] 4.2.7.2.686 Shaji as [phone] [address] 2021-09-15 2021-09-15 Irrigation Flume Layer Lab, Ang-Rmchp [facility] 1.2.840. 114 [id number] Univers 08:30:00 08:53:59 Visit Pnia Nicole ROTARY CUTTER OPERATOR 350.1.13.10 ity of [facility] 4.2.7.2.686 Shaji as MATERNAL [phone] [facility] & CHILD [address] [place] [address] 2021-09-15 2021-09-15 Outpatient Russ NICOLE [facility] [id number] Univers 08:30:00 08:53:59 PINA yousif [facility] 2021-09-15 2021-09-15 Outpatient Russ NICOLE [facility] [id number] Univers 08:30:00 08:30:00 PINA grimm o nica [facility] 2021-09-09 2021-09-09 Outpatient R BONNIE [facility] [id number] Univers 08:00:00 08:24:51 PINA grimm o nica [facility] 2021-09-09 2021-09-09 Irrigation Flume Layer Lab, [facility] 1.2.840. 114 [id number] [facility] 08:00:00 08:24:51 Visit Nicole, Rosmaria luisa R ROTARY CUTTER OPERATOR 350.1.13.10 ity of [facility] 4.2.7.2.686 Shaji as MATERNAL [phone] [facility] & CHILD [address] [place] [address] 2021-09-07 2021-09-07 [facility] 1.2.840.114 [id number] Univers 00:00:00 00:00:00 Carla Yang ROTARY CUTTER OPERATOR 350.1.13.10 ity of [facility] 4.2.7.2.686 Shaji as MATERNAL [id number] [facility] & CHILD [address] [place] [address] 2021-09-07 2021-09-07 Telephone LIZBETH Arenas 1.2.840.114 [id number] Univers 00:00:00 00:00:00 Hemalatha FIERRO 350.1.13.10 it y of [facility] 4.2.7.2.686 Shaji as [phone] [address] 2021-09-03 2021-09-03 Refill [facility] 1.2.623.624 [id number] Univers 00:00:00 00:00:00 Carla Yang ROTARY CUTTER OPERATOR 350.1.13.10 ity of [facility] 4.2.7.2.686 Shaji as MATERNAL [phone] [facility] & CHILD [address] [place] [address] 2021-09-01 2021-09-01 Outpatient R IMAN [facility] [id number] Univers 10:30:00 10:40:53 CARLA grimm o nica [facility] 2021-09-01 2021-09-01 Irrigation Flume Layer Lab, [facility] 1.2.840. 114 [id number] Univers 10:30:00 10:40:53 Visit Carla Valerio ROTARY CUTTER OPERATOR 350.1.13. 10 ity of REGIONAL 4.2.7.2.686 Shaji as MATERNAL [phone] Med ical & CHILD 107 [facility] 2021-08-25 2021-08-25 Outpatient R IMAN [facility] [id number] Univers 08:30:00 08:57:[address] [facility] 2021-08-25 2021-08-25 Irrigation Flume Layer Lab, [facility] 1.2.840. 114 [id number] Univers 08:30:00 08:57:29 Visit Carla Valerio ROTARY CUTTER OPERATOR 350.1.13. 10 ity of REG[facility] 4.2.7.2.686 Shaji as MATERNAL [phone] [facility] ical & CHILD [address] [place] [address] 2021-08-18 2021-08-18 Outpatient R IMAN [facility] [id number] [facility] 08:30:00 09:38:[address] [facility] 2021-08-18 2021-08-18 Office [facility] 1.2.426.773 [id number] Univers 08:30:00 09:38:35 Visit Carla Yang ROTARY CUTTER OPERATOR 350.1.13.10 ity of [facility] 4.2.7.2.686 Shaji as MATERNAL [phone] [facility] ical & CHILD [address] [place] [address] 2021-08-18 2021-08-18 Outpatient R IMAN [facility] [id number] Univers 08:30:00 09:38:[address] [facility] 2021-08-14 2021-08-14 Outpatient R BONNIE [facility] [id number] Univers 08:00:00 08:34:[address] [facility] 2021-08-14 2021-08-14 Irrigation Flume Layer Lab, [facility] 1.2.840. 114 [id number] Univers 08:00:00 08:34:16 Visit Pina Nicole R ROTARY CUTTER OPERATOR 350.1.13.10 ity of REGIONAL 4.2.7.2.686 Shaji as MATERNAL [phone] [facility] ical & CHILD [address] [place] [address] 2021-08-14 2021-08-14 Outpatient R BONNIE [facility] [id number] Univers 08:00:00 08:34:16 ROBLESSVETLANACamille ity o f [facility] 2021-08-07 2021-08-07 Telephone Jerrod [facility] UNIVERSIT 1.2.840.114 [id number] Univers 00:00:00 00:00:00 Y HEALTH 350.1.13.10 i ty of [place] [phone] [address] 2021-08-06 2021-08-06 Irrigation Flume Layer [facility] UNIVERSIT 1.2.840.114 [id number] Univers 11:15:00 11:30:00 Visit Hailey Conrad Y HEALTH 350.1.13.10 ity of CL[place]ICS [place] [id number] [facility] [address] 2021-08-06 2021-08-06 Outpatient Russ CONRAD [facility] [id number] Univers 10:00:00 10:57:01 HAILEY ity of [facility] 2021-08-06 2021-08-06 Routine Trimester, [facility] Res-1st UNIVERSIT 1.2.840.114 [id number] Univers 10:00:00 10:57:01 Hailey Conrad [facility] 350.1.13.10 ity of Visit CLINICS [place] [id number] [address] 2021-08-06 2021-08-06 Outpatient Russ CONRAD [facility] [id number] Univers 10:00:00 10:57:01 HAILEY ity [facility] 2021-07-30 2021-07-30 Refill [facility] 1.2.821.958 [id number] Univers 00:00:00 00:00:00 Carla Yang ROTARY CUTTER OPERATOR 350.1.13.10 ity of REGIONAL 4.2.7.2.686 Shaji as MATERNAL [phone] [facility] ical & CHILD [address] [place] [address] 2021-07-292021-07-29 Outpatient R ELLEN [facility] [id number] Univers 13:00:00 13:00:00 THEO sirisha [facility] 2021-07-29 2021-07-29 [facility] 1.2.943.175 [id number] Univers 00:00:00 00:00:00 Carla C ROTARY CUTTER OPERATOR 350.1.13.10 ity [place] [address].7.2.686 Shaji as MATERNAL [phone] [facility] & CHILD [address] [place] [address] 2021-07-28 2021-07-28 Telephone Johanny Elder 1.2.840.114 [id number] Univers 00:00:00 00:00:00 VADIM 350.1.13.10 it y [address]7.2.686 Shaji as [id number] [address] 2021-07-27 2021-07-27 Telephone [facility] 1.2.840.114 [id number] Univers 00:00:00 00:00:00 Carla Yang ROTARY CUTTER OPERATOR 350.1.13.10 ity of [place] [address].7.2.686 Shaji as MATERNAL [id number] [address] 2021-07-21 2021-07-21 Out[facility] ENVIRONMENTAL ENGINEERING PROFESSOR [id number] Univers 11:12:00 17:03:00 MONTEZ grimm [facility] 2021-07-21 2021-07-21 Outpatient R JAN [facility] ENVIRONMENTAL ENGINEERING PROFESSOR [id number] Univers 11:12:00 17:03:00 MONTEZ grimm [facility] 2021-07-21 2021-07-21 Hospital BARRERA Rosales [id number] [id number] Univers 11:12:00 17:03:00 Encounter Montez FIERRO 350.1.13.10 [address]7.2.686 Shaji as [phone] [address] 2021-07-21 2021-07-21 Surgery BARRERA Rosales 1.2.840.114 [id number] Univers 13:12:00 14:43:00 Montez Victor VADIM 350.1.13.10 it y of HOSPITAL 4.2.7.2.686 Shaji as [phone] [facility] [address] 2021-07-21 2021-07-21 Orders Doctor LIZBETH 1.2.840.114 [id number] Univers 00:00:00 00:00:00 Only Unassigned, VADIM 350.1.13.10 ity of [facility] 4.2.7.2.686 Shaji as [id number] [facility] [address] 2021-07-17 2021-07-17 [facility] [id number] Univers 10:30:00 12:13:27 [facility] 2021-07-17 2021-07-17 Routine Trimester, [facility] Res-1st UNIVERSIT 1.2.840.114 [id number] Univers 10:30:00 12:13:27 Yadiel Shafer [facility] HEALTH 350.1.13.10 ity of Visit CLINICS 4[place]2.7.2.[place] [id number] [facility] [address] 2021-07-17 2021-07-17 Orders Doctor LIZBETH 1.2.840.114 [id number] Univers 00:00:00 00:00:00 Only Unassigned, VADIM 350.1.13.10 ity of [employer] [facility] 4.2.7.2.686 Shaji as [id number] [facility] 009 [place] 2021-07-16 2021-07-16 [facility]patient [facility] [id number] Univers 13:45:00 14:20:59 DISHA grimm [facility] 2021-07-16 2021-07-16 Routine Risk, Bpe-Rmbqc-Dw/High [facility] 1. 2.840.114 [id number] Univers 13:45:00 14:20:59 Disha Benavidez [employer] 350.1.13.10 ity of Visit REGIONAL 4.2.7.2.686 Shaji [address] MATERNAL [phone] [facility] ical & CHILD [address] [place] [address] 2021-07-16 2021-07-16 Outpatient [facility] [id number] Univers 13:45:00 14:20:59 DISHA sirisha [facility] 2021-07-16 2021-07-16 Orders Doctor LIZBETH 1.2.840.114 [id number] Univers 00:00:00 00:00:00 Only Unassigned, VADIM 350.1.13.10 ity of [employer] [facility] 4.2.7.2.686 Shaji as [phone] [facility] 009 Branch 2021-07-13 2021-07-13 Out[facility] [id number] Univers 15:45:00 15:45:00 THEO grimm [facility] 2021-07-13 2021-07-13 Outpatient [facility] [id number] Univers 15:45:00 15:45:00 THEO grimm [facility] 2021-07-10 2021-07-10 Outpatient P [facility] [id number] Univers 09:00:00 09:00:00 ity [facility] 2021-07-10 2021-07-10 Outpatient P [facility] [id number] Univers 09:00:00 09:00:00 ity [facility] 2021-07-10 2021-07-10 Outpatient P [facility] [id number] Univers 09:00:00 09:00:00 ity [facility] 2021-07-10 2021-07-10 Outpatient P [facility] [id number] Univers 09:00:00 09:00:00 ity [facility] 2021-07-09 2021-07-09 [facility] [id number] Univers 10:15:00 11:08:48 NORA grimm [facility] 2021-07-09 2021-07-09 Routine Trimester, [facility] Res-1st UNIVERSIT 1.2.840.114 [id number] Univers 10:15:00 11:08:[address] [facility] 350.1.13 .10 ity of Visit CLINICS [place] [id number] Medi [address] 2021-07-09 2021-07-09 Routine Trimester, [facility] Res-1st UNIVERSIT 1.2.840.114 [id number] Univers 10:15:00 11:08:48 Nora Amor [facility] 350.1.13 .10 it[id number] [address] 2021-07-09 2021-07-09 Outpatient R AMOR, [facility] [id number] Univers 10:15:00 10:15:00 NORA itmichael [facility] 2021-07-09 2021-07-09 Telephone Risk, [facility] 1.2.082.005 [id number] Univers 00:00:00 00:00:00 [facility] ROTARY CUTTER OPERATOR 350.1.13.10 ity of p/High REGIONAL 4.2.7.2.686 Shaji as MATERNAL [phone] Med ical & CHILD [address] [place] [address] 2021-07-09 2021-07-09 Ros[facility] 1.2.840.114 [id number] Univers 00:00:00 00:00:00 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 350.1.13.10 ity of Visit REGIONAL 4.2.7.2.686 Shaji as MATERNAL [id number] [facility] [address] [place] [address] 2021-07-06 2021-07-06 [facility] [id number] Univers 14:00:00 15:46:44 CARLA ity o f [facility] 2021-07-06 2021-07-06 Telephone [facility] 1.2.141.418 [id number] Univers 00:00:00 00:00:00 Patient 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 2021-07-03 2021-07-03 [facility] [id number] Univers 10:30:00 10:30:[address] [facility] 2021-07-02 2021-07-02 [facility] [id number] Univers 14:15:00 14:15:00 THEO grimm [facility] 2021-07-02 2021-07-02 Outpatient [facility] [id number] Univers 14:15:00 14:15:00 THEO grimm [facility] 2021-07-02 2021-07-02 Office [facility] 1.2.840.114 [id number] Univers 14:15:00 14:15:00 Visit Theo Phillips [facility] 350.1.13.10 [facility] 4.2.7.2.686 [place] [facility] [phone] [facility] PRIMARY & [facility] SPECIALTY CARE 2021-07-02 2021-07-02 Outpatient [facility] [id number] Univers 10:00:00 11:19:29 [facility] 2021-07-02 2021-07-02 Routine Trimester, [facility] Res-1st UNIVERSIT 1.2.840.114 [id number] Univers 10:00:00 11:19:29 Kingston Katz [facility] 350.1.1 3.10 ity of Visit CL[place] [id number] [address] 2021-07-02 2021-07-02 Outpatient R KATZ, [facility] [id number] Univers 10:00:00 11:19:29 [facility] 2021-07-02 2021-07-02 Routine Trimester, [facility] Res-1st UNIVERSIT 1.2.840.114 [id number] Univers 10:00:00 11:19:29 Aric Katzuong [facility] HEALTH 350.1.1 3.10 ity of Visit CLINICS [place] [id number] [facility] [address] 2021-07-01 2021-07-01 Outpatient [facility] [id number] Univers 10:30:00 10:30:00 PINA grimm o f [facility] 2021-07-01 2021-07-01 Telephone Pcp, UNIVERSIT 1..840.114 [id number] Univers 00:00:00 00:00:00 Patient Y HEALTH 350.1.13.10 i ty of Does Not [facility] 4.2.7.2.686 Shaji as Have A [id number] [facility] [address] [place] 2021-06-30 2021-06-30 Emergency X [facility] ERT [id number] Univers 16:11:00 18:22:00 ITZ ity of [facility] 2021-06-30 2021-06-30 Emergency [facility] 1.2.870.181 [id number] Univers 16:11:00 18:22:00 Itz R APRIL 350.1.13.10 i ty of [facility] [place].2.7.2.[place] [id number] [facility] 0[address] 2021-06-30 2021-06-30 Emergency X PRAMOD, [facility] ERT [id number] Univers 16:11:00 18:22:00 ITZ michael [facility] 2021-06-29 2021-06-29 Office Faculty, Matty Wang [facility] 1.2 .840.114 [id number] Univers 14:00:00 14:14:10 Visit Matteo Harvey ROTARY CUTTER OPERATOR 350.1.13.10 ity of [facility] 4.2.7.2.686 Shaji as MATERNAL [phone] [facility] [address] [place] [address] 2021-06-29 2021-06-29 Outpatient R CANDICE [facility] [id number] Univers 14:00:00 14:14:[address] [facility] 2021-06-29 2021-06-29 Outpatient R CANDICE [facility] [id number] Univers 14:00:00 14:00:00 [facility] 2021-06-17 2021-06-17 Telephone [facility] 1.2.006.392 [id number] Univers 00:00:00 00:00:00 Pina Solano ROTARY CUTTER OPERATOR 350.1.13.10 ity of [facility] 4.2.7.2.686 Shaji as MATERNAL [id number] [facility] & [address] 2021-06-15 2021-06-15 Outpatient R ASIA [facility] [id number] Univers 11:30:00 12:26:[address] [facility] 2021-06-15 2021-06-15 Office Faculty, Matty Jenningsrodriguez [facility] 1.2 .840.114 [id number] Univers 11:30:00 12:26:18 Visit Antonio Betancourt ROTARY CUTTER OPERATOR 350.1. 13.10 ity of [facility] 4.2.7.2.686 Shaji as MATERNAL [phone] [facility] & CHILD [address] [place] [address] 2021-06-15 2021-06-15 Outpatient [facility] [id number] Univers 11:30:00 12:26:18 [facility] 2021-06-15 2021-06-15 Outpatient R [facility] [id number] Univers 11:30:00 11:30:00 ity of [facility] 2021-06-15 2021-06-15 Outpatient R [facility] [id number] Univers 11:30:00 11:30:00 ity [facility] 2021-06-15 2021-06-15 Rosette Sanders [facility] 1.2.840.114 [id number] Univers 00:00:00 00:00:00 Leila ROTARY CUTTER OPERATOR 350.1.13.10 ity of [facility] 4.2.7.2.686 Shaji as MATERNAL [phone] [facility] CH[facility] [address] [place] [address] 2021-06-11 2021-06-11 Telephone [facility] 1.2.352.742 [id number] Univers 00:00:00 00:00:00 Pina Solano ROTARY CUTTER OPERATOR 350.1.13.10 ity [facility] 4.2.7.2.686 Shaji as MATERNAL [phone] [facility] CH[facility] [address] [place] [address] 2021-06-10 2021-06-10 Irrigation Flume Layer Lab[facility] 1.2.840. 114 [id number] Univers 08:15:00 08:43:18 Visit Carla Valerio ROTARY CUTTER OPERATOR 350.1.13. 10 ity of Pina Nicole [facility] 4.2.7.2.686 [place] MATERNAL [id number] [facility] CH[facility] [address] [place] [address] 2021-06-10 2021-06-10 Outpatient R BONNIE [facility] [id number] Univers 08:15:00 08:43:18 ROSMADYNDA itmichael o f [facility] 2021-06-10 2021-06-10 Outpatient R BONNIE [facility] [id number] Univers 08:15:00 08:15:00 ROSMADYNDA ity o f [facility] 2021-06-08 2021-06-08 Telephone [facility] 1.2.943.360 [id number] Univers 00:00:00 00:00:00 Serinaanika R ROTARY CUTTER OPERATOR 350.1.13.10 ity of [facility] 4.2.7.2.686 Shaji as MATERNAL [phone] [address] 2021-06-03 2021-06-03 Outpatient [facility] [id number] Univers 10:30:00 14:03:[address] [facility] 2021-06-03 2021-06-03 [facility] 1.2.840.114 [id number] Univers 10:30:00 14:03:22 Visit Serinasvetlana R ROTARY CUTTER OPERATOR 350.1.13.10 ity of [facility] 4.2.7.2.686 Shaji as MATERNAL [phone] [address] 2021-06-03 2021-06-03 Outpatient Russ [facility] [id number] Univers 10:30:00 14:03:22 [facility] 2021-06-03 2021-06-03 Orders Doctor LIZBETH 1.2.840.114 [id number] Univers 00:00:00 00:00:00 Only Unassigned, VADIM 350.1.13.10 ity of [employer] [facility] 4.2.7.2.686 Shaji as [phone] [address] 2021-05-05 2021-05-05 Outpatient [facility] [id number] Univers 09:45:00 09:45:[address] [facility] 2021-02-03 2021-02-03 Outpatient [facility] [id number] Univers 10:00:00 11:16:[address] [facility] 2021-02-03 2021-02-03 Office [facility] 1.2.982.029 [id number] Univers 10:00:00 11:16:47 Visit Carla Yang ROTARY CUTTER OPERATOR 350.1.13.10 ity of [facility] 4.2.7.2.686 Shaji as MATERNAL [phone] [address] 2021-02-03 2021-02-03 Outpatient R MARTIANTWON, [facility] [id number] Univers 10:00:00 11:16:47 CARLA schwartz f [facility] 2021-02-03 2021-02-03 Outpatient R AKINSIPE, [facility] [id number] Univers 10:00:00 11:16:47 CARLA grimm o f [facility] 2021-02-03 2021-02-03 Orders Doctor LIZBETH 1.2.840.114 [id number] Univers 00:00:00 00:00:00 Only Unassigned, VADIM 350.1.13.10 ity of [employer] [facility] 4.2.7.2.686 Shaji as [id number] [address] 2021-01-22 2021-01-22 Telephone [facility] 1.2.840.114 [id number] Univers 00:00:00 00:00:00 Carla C ROTARY CUTTER OPERATOR 350.1.13.10 ity of [facility] 4.2.7.2.686 Shaji as MATERNAL [phone] [facility] ical & CHILD [address] [place] [address] 2020-08-12 2020-08-12 Telephone [facility] 1.2.840.114 [id number] Univers 00:00:00 00:00:00 Carla C ROTARY CUTTER OPERATOR 350.1.13.10 ity of [facility] 4.2.7.2.686 Shaji as MATERNAL [phone] [facility] ical & CHILD [address] [place] [address] 2020-05-05 2020-05-05 Office [facility] 1.2.718.171 [id number] Univers 09:04:38 09:53:52 Visit Carla C ROTARY CUTTER OPERATOR 350.1.13.10 ity of [facility] 4.2.7.2.686 Shaji as MATERNAL [id number] [facility] ical & CHILD [address] [place] [address] 2020-05-05 2020-05-05 Outpatient [facility] [id number] Univers 08:45:00 08:45:[address] [facility] 2020-05-05 2020-05-05 Orders Doctor LIZBETH 1.2.840.114 [id number] Univers 00:00:00 00:00:00 Only Unassigned, VADIM 350.1.13.10 ity of [employer] [facility] 4.2.7.2.686 Shaji as [phone] [address] 2020-05-01 2020-05-01 Outpatient R IMAN, [facility] [id number] [facility] 08:15:00 08:15:00 CARLA grimm o f [facility] Results Test Description Test Time Test Comments Results Result Sour e Comments TOTAL BETA HCG 2021-12-02 BETA [facility] 04:45:56 HCG<2.39Non-preg [facility] dical nant female and [place] male patients: <5 mIU/mL12/01/2021 11:45 PM [facility] Gestational Age ?Range (mIU/mL) 1-10 ?Weeks ?51-87098626-47 Weeks ?84761-32780819- 22 Weeks ?1863-56873401-0 0 Weeks ?1531-488019 Biotin has been reported to cause a negative bias, interpret results relative to patient's use of biotin. TOTAL BETA HCG 2021-10-15 BETA [facility] 05:09:41 HCG<2.39Non-preg [facility] dical nant female and [place] male patients: <5 mIU/mL10/15/2021 12:09 AM [facility] Gestational Age ?Range (mIU/mL) 1-10 ?Weeks ?06-56890648-41 Weeks ?16565-48199002- 22 Weeks ?1446-62850462-0 0 Weeks ?1531-211503 Biotin has been reported to cause a negative bias, interpret results relative to patient's use of biotin. SARS-CoV-2 (COVID-19) by RT-PCR (HIGH RISK) 2020-10-22 00:00 :00 Test Item Value Reference Range Interpretation Comme nts SARS-CoV-2 INTERPRETATION (test code = 38002) NEGATIVE SOURCE (test code = 30406) NOT SPECIFIED SARS-CoV-2 (COVID-19) by RT-PCR (HIGH RISK)2020-10-22 00:00:00 Test Item Value Reference Range Interpretation Comments SARS-CoV-2 INTERPRETATION (test NEGATIVE code = 53698) SOURCE (test code = 16706) NOT SPECIFIED SARS-CoV-2 (COVID-19) by RT-PCR (HIGH RISK)2020-10-22 00:00:00 Test Item Value Reference Range Interpretation Comments SARS-CoV-2 INTERPRETATION (test NEGATIVE code = 64240) SOURCE (test code = 06262) NOT SPECIFIED MICROALBUMIN/CREATININE, RANDOM AND [id number] 00:00:00 Test Item Value Reference Range Interpretation Comments CREATININE, URINE, CONC. (test 29.1 MG/DL code = 2072) ALBUMIN, URINE, RANDOM (test code <0.2 MG/DL = 22094) CALC ALBUMIN/CREAT, RND (test code <7 MG/G = 24546) HEMOGLOBIN [id number] 00:00:00 Test Item Value Reference Range Interpretation Comments HEMOGLOBIN A1c (test code = 92656) 14.0 % HEMOGLOBIN [id number] 00:00:00 Test Item Value Reference Range Interpretation Comments HEMOGLOBIN A1c (test code = 29030) 14.0 % HEMOGLOBIN [id number] 00:00:00 Test Item Value Reference Range Interpretation Comments HEMOGLOBIN A1c (test code = 59468) 14.0 % COMPREHENSIVE METABOLIC [id number] 00:00:00 Test Item Value Reference Range Interpretation Comments GLUCOSE (test code = 2217) 428 MG/DL BUN (test code = 2208) 7 MG/DL CREATININE (test code = 2214) 0.60 MG/DL eGFR AMER. (test code 132 ML/MIN/1.73 = 67985) eGFR NON- AMER. (test 114 ML/MIN/1.73 code = 32574) CALC BUN/CREAT (test code = 12 RATIO 2235) SODIUM (test code = 2231) 138 MEQ/L POTASSIUM (test code = 2228) 4.3 MEQ/L CHLORIDE (test code = 2215) 100 MEQ/L CARBON DIOXIDE (test code = 24 MEQ/L 2205) CALCIUM (test code = 2209) 8.9 MG/DL PROTEIN, TOTAL (test code = 7.0 G/DL 2228) ALBUMIN (test code = 2201) 3.7 G/DL CALC GLOBULIN (test code = 3.3 G/DL 2240) CALC A/G RATIO (test code = 1.1 RATIO 2234) BILIRUBIN, TOTAL (test code = <0.2 MG/DL 2206) ALKALINE PHOSPHATASE (test 137 U/L code = 2204) AST (test code = 2218) 23 U/L ALT (test code = 2219) 16 U/L COMPREHENSIVE METABOLIC [id number] 00:00:00 Test Item Value Reference Range Interpretation Comments GLUCOSE (test code = 2217) 428 MG/DL BUN (test code = 2208) 7 MG/DL CREATININE (test code = 2214) 0.60 MG/DL eGFR AMER. (test code 132 ML/MIN/1.73 = 58516) eGFR NON- AMER. (test 114 ML/MIN/1.73 code = 90689) CALC BUN/CREAT (test code = 12 RATIO 2235) SODIUM (test code = 2231) 138 MEQ/L POTASSIUM (test code = 2228) 4.3 MEQ/L CHLORIDE (test code = 2215) 100 MEQ/L CARBON DIOXIDE (test code = 24 MEQ/L 2205) CALCIUM (test code = 2209) 8.9 MG/DL PROTEIN, TOTAL (test code = 7.0 G/DL 2228) ALBUMIN (test code = 2201) 3.7 G/DL CALC GLOBULIN (test code = 3.3 G/DL 2240) CALC A/G RATIO (test code = 1.1 RATIO 2234) BILIRUBIN, TOTAL (test code = <0.2 MG/DL 2206) ALKALINE PHOSPHATASE (test 137 U/L code = 2204) AST (test code = 2218) 23 U/L ALT (test code = 2219) 16 U/L CBC W/AUTO [id number] 00:00:00 Test Item Value Reference Range Interpretation Comments WBC (test code = 1001) 7.9 K/UL RBC (test code = 1002) 5.61 M/UL HEMOGLOBIN (test code = 1003) 11.3 G/DL HEMATOCRIT (test code = 1004) 38.0 % MCV (test code = 1005) 67.7 fL MCH (test code = 1006) 20.1 PG MCHC (test code = 1007) 29.7 G/DL RDW (test code = 1038) 15.0 % NEUTROPHILS (test code = 1008) 55.1 % LYMPHOCYTES (test code = 1010) 36.2 % MONOCYTES (test code = 1011) 7.0 % EOSINOPHILS (test code = 1012) 0.9 % BASOPHILS (test code = 1013) 0.5 % IMMATURE GRANULOCYTES (test 0.3 % code = 1036) NUCLEATED RBCS (test code = 0.0 /100WBC'S 1065) PLATELET COUNT (test code = 321 K/UL 1015) ABSOLUTE NEUTROPHILS (test code 4.37 K/UL = 1066) ABSOLUTE LYMPHOCYTES (test code 2.86 K/UL = 1067) ABSOLUTE MONOCYTES (test code = 0.55 K/UL 1068) ABSOLUTE EOSINOPHILS (test code 0.07 K/UL = 1040) ABSOLUTE BASOPHILS (test code = 0.04 K/UL 1069) ABS IMMATURE GRANULOCYTES (test 0.02 K/UL code = 1020) ABS NUCLEATED RBCS (test code = 0.00 K/UL 11675) CBC W/AUTO [id number] 00:00:00 Test Item Value Reference Range Interpretation Comments WBC (test code = 1001) 7.9 K/UL RBC (test code = 1002) 5.61 M/UL HEMOGLOBIN (test code = 1003) 11.3 G/DL HEMATOCRIT (test code = 1004) 38.0 % MCV (test code = 1005) 67.7 fL MCH (test code = 1006) 20.1 PG MCHC (test code = 1007) 29.7 G/DL RDW (test code = 1038) 15.0 % NEUTROPHILS (test code = 1008) 55.1 % LYMPHOCYTES (test code = 1010) 36.2 % MONOCYTES (test code = 1011) 7.0 % EOSINOPHILS (test code = 1012) 0.9 % BASOPHILS (test code = 1013) 0.5 % IMMATURE GRANULOCYTES (test 0.3 % code = 1036) NUCLEATED RBCS (test code = 0.0 /100WBC'S 1065) PLATELET COUNT (test code = 321 K/UL 1015) ABSOLUTE NEUTROPHILS (test code 4.37 K/UL = 1066) ABSOLUTE LYMPHOCYTES (test code 2.86 K/UL = 1067) ABSOLUTE MONOCYTES (test code = 0.55 K/UL 1068) ABSOLUTE EOSINOPHILS (test code 0.07 K/UL = 1040) ABSOLUTE BASOPHILS (test code = 0.04 K/UL 1069) ABS IMMATURE GRANULOCYTES (test 0.02 K/UL code = 1020) ABS NUCLEATED RBCS (test code = 0.00 K/UL 67377) CBC W/AUTO [id number] 00:00:00 Test Item Value Reference Range Interpretation Comments WBC (test code = 1001) 7.9 K/UL RBC (test code = 1002) 5.61 M/UL HEMOGLOBIN (test code = 1003) 11.3 G/DL HEMATOCRIT (test code = 1004) 38.0 % MCV (test code = 1005) 67.7 fL MCH (test code = 1006) 20.1 PG MCHC (test code = 1007) 29.7 G/DL RDW (test code = 1038) 15.0 % NEUTROPHILS (test code = 1008) 55.1 % LYMPHOCYTES (test code = 1010) 36.2 % MONOCYTES (test code = 1011) 7.0 % EOSINOPHILS (test code = 1012) 0.9 % BASOPHILS (test code = 1013) 0.5 % IMMATURE GRANULOCYTES (test 0.3 % code = 1036) NUCLEATED RBCS (test code = 0.0 /100WBC'S 1065) PLATELET COUNT (test code = 321 K/UL 1015) ABSOLUTE NEUTROPHILS (test code 4.37 K/UL = 1066) ABSOLUTE LYMPHOCYTES (test code 2.86 K/UL = 1067) ABSOLUTE MONOCYTES (test code = 0.55 K/UL 1068) ABSOLUTE EOSINOPHILS (test code 0.07 K/UL = 1040) ABSOLUTE BASOPHILS (test code = 0.04 K/UL 1069) ABS IMMATURE GRANULOCYTES (test 0.02 K/UL code = 1020) ABS NUCLEATED RBCS (test code = 0.00 K/UL 06275) MICROALBUMIN/CREATININE, RANDOM AND [id number] 00:00:00 Test Item Value Reference Range Interpretation Comments CREATININE, URINE, CONC. (test 29.1 MG/DL code = 2) ALBUMIN, URINE, RANDOM (test code <0.2 MG/DL = 52954) CALC ALBUMIN/CREAT, RND (test code <7 MG/G = 15529) MICROALBUMIN/CREATININE, RANDOM AND [id number] 00:00:00 Test Item Value Reference Range Interpretation Comments CREATININE, URINE, CONC. (test 29.1 MG/DL code = 2072) ALBUMIN, URINE, RANDOM (test code <0.2 MG/DL = 92616) CALC ALBUMIN/CREAT, RND (test code <7 MG/G = 19994) HEMOGLOBIN [id number] 00:00:00 Test Item Value Reference Range Interpretation Comments HEMOGLOBIN A1c (test code = 85532) 14.0 % HEMOGLOBIN [id number] 00:00:00 Test Item Value Reference Range Interpretation Comments HEMOGLOBIN A1c (test code = 58716) 14.0 % COMPREHENSIVE METABOLIC [id number] 00:00:00 Test Item Value Reference Range Interpretation Comments GLUCOSE (test code = 2217) 428 MG/DL BUN (test code = 2208) 7 MG/DL CREATININE (test code = 2214) 0.60 MG/DL eGFR AMER. (test code 132 ML/MIN/1.73 = 26264) eGFR NON- AMER. (test 114 ML/MIN/1.73 code = 31410) CALC BUN/CREAT (test code = 12 RATIO 2235) SODIUM (test code = 2231) 138 MEQ/L POTASSIUM (test code = 2228) 4.3 MEQ/L CHLORIDE (test code = 2215) 100 MEQ/L CARBON DIOXIDE (test code = 24 MEQ/L 2205) CALCIUM (test code = 2209) 8.9 MG/DL PROTEIN, TOTAL (test code = 7.0 G/DL 2228) ALBUMIN (test code = 2201) 3.7 G/DL CALC GLOBULIN (test code = 3.3 G/DL 2240) CALC A/G RATIO (test code = 1.1 RATIO 2234) BILIRUBIN, TOTAL (test code = <0.2 MG/DL 2206) ALKALINE PHOSPHATASE (test 137 U/L code = 2204) AST (test code = 2218) 23 U/L ALT (test code = 2219) 16 U/L CBC W/AUTO [id number] 00:00:00 Test Item Value Reference Range Interpretation Comments WBC (test code = 1001) 7.9 K/UL RBC (test code = 1002) 5.61 M/UL HEMOGLOBIN (test code = 1003) 11.3 G/DL HEMATOCRIT (test code = 1004) 38.0 % MCV (test code = 1005) 67.7 fL MCH (test code = 1006) 20.1 PG MCHC (test code = 1007) 29.7 G/DL RDW (test code = 1038) 15.0 % NEUTROPHILS (test code = 1008) 55.1 % LYMPHOCYTES (test code = 1010) 36.2 % MONOCYTES (test code = 1011) 7.0 % EOSINOPHILS (test code = 1012) 0.9 % BASOPHILS (test code = 1013) 0.5 % IMMATURE GRANULOCYTES (test 0.3 % code = 1036) NUCLEATED RBCS (test code = 0.0 /100WBC'S 1065) PLATELET COUNT (test code = 321 K/UL 1015) ABSOLUTE NEUTROPHILS (test code 4.37 K/UL = 1066) ABSOLUTE LYMPHOCYTES (test code 2.86 K/UL = 1067) ABSOLUTE MONOCYTES (test code = 0.55 K/UL 1068) ABSOLUTE EOSINOPHILS (test code 0.07 K/UL = 1040) ABSOLUTE BASOPHILS (test code = 0.04 K/UL 1069) ABS IMMATURE GRANULOCYTES (test 0.02 K/UL code = 1020) ABS NUCLEATED RBCS (test code = 0.00 K/UL 02576) CBC W/AUTO [id number] 00:00:00 Test Item Value Reference Range Interpretation Comments WBC (test code = 1001) 7.9 K/UL RBC (test code = 1002) 5.61 M/UL HEMOGLOBIN (test code = 1003) 11.3 G/DL HEMATOCRIT (test code = 1004) 38.0 % MCV (test code = 1005) 67.7 fL MCH (test code = 1006) 20.1 PG MCHC (test code = 1007) 29.7 G/DL RDW (test code = 1038) 15.0 % NEUTROPHILS (test code = 1008) 55.1 % LYMPHOCYTES (test code = 1010) 36.2 % MONOCYTES (test code = 1011) 7.0 % EOSINOPHILS (test code = 1012) 0.9 % BASOPHILS (test code = 1013) 0.5 % IMMATURE GRANULOCYTES (test 0.3 % code = 1036) NUCLEATED RBCS (test code = 0.0 /100WBC'S 1065) PLATELET COUNT (test code = 321 K/UL 1015) ABSOLUTE NEUTROPHILS (test code 4.37 K/UL = 1066) ABSOLUTE LYMPHOCYTES (test code 2.86 K/UL = 1067) ABSOLUTE MONOCYTES (test code = 0.55 K/UL 1068) ABSOLUTE EOSINOPHILS (test code 0.07 K/UL = 1040) ABSOLUTE BASOPHILS (test code = 0.04 K/UL 1069) ABS IMMATURE GRANULOCYTES (test 0.02 K/UL code = 1020) ABS NUCLEATED RBCS (test code = 0.00 K/UL 52689) SARS-CoV-2 (COVID-19) by RT-PCR (HIGH RISK)2020-05-06 00:00:00 Test Item Value Reference Range Interpretation Comments SARS-CoV-2 INTERPRETATION (test NEGATIVE code = 63040) SOURCE (test code = 28332) NOT SPECIFIED SARS-CoV-2 (COVID-19) by RT-PCR (HIGH RISK)2020-05-06 00:00:00 Test Item Value Reference Range Interpretation Comments SARS-CoV-2 INTERPRETATION (test NEGATIVE code = 60820) SOURCE (test code = 65152) NOT SPECIFIED SARS-CoV-2 (COVID-19) by RT-PCR (HIGH RISK)2020-05-06 00:00:00 Test Item Value Reference Range Interpretation Comments SARS-CoV-2 INTERPRETATION (test NEGATIVE code = 19632) SOURCE (test code = 14838) NOT SPECIFIED HEMOGLOBIN [id number] 00:00:00 Test Item Value Reference Range Interpretation Comments HEMOGLOBIN A1c (test code = 29358) 13.1 % HEMOGLOBIN [id number] 00:00:00 Test Item Value Reference Range Interpretation Comments HEMOGLOBIN A1c (test code = 89353) 13.1 % HEMOGLOBIN [id number] 00:00:00 Test Item Value Reference Range Interpretation Comments HEMOGLOBIN A1c (test code = 76324) 13.1 % HEMOGLOBIN [id number] 00:00:00 Test Item Value Reference Range Interpretation Comments HEMOGLOBIN A1c (test code = 50798) 13.1 % HEMOGLOBIN [id number] 00:00:00 Test Item Value Reference Range Interpretation Comments HEMOGLOBIN A1c (test code = 33458) 13.1 % [id number] 00:00:00 Test Item Value Reference Range Interpretation Comments TSH (test code = 2821) 2.300 UIU/ML [id number] 00:00:00 Test Item Value Reference Range Interpretation Comments TSH (test code = 2821) 2.300 UIU/ML MICROALBUMIN/CREATININE, RANDOM AND [id number] 00:00:00 Test Item Value Reference Range Interpretation Comments CREATININE, URINE, CONC. (test 37.7 MG/DL code = 2072) MICROALBUMIN, RANDOM (test code = <0.2 MG/DL 21153) CALC MICROALB/CREAT RND (test code <5 MG/G = 64985) COMPREHENSIVE METABOLIC [id number] 00:00:00 Test Item Value Reference Range Interpretation Comments GLUCOSE (test code = 2217) 340 MG/DL BUN (test code = 2208) 9 MG/DL CREATININE (test code = 2214) 0.58 MG/DL eGFR AMER. (test code 137 ML/MIN/1.73 = 97468) eGFR NON- AMER. (test 119 ML/MIN/1.73 code = 93831) CALC BUN/CREAT (test code = 16 RATIO 2235) SODIUM (test code = 2231) 139 MEQ/L POTASSIUM (test code = 2228) 3.9 MEQ/L CHLORIDE (test code = 2215) 99 MEQ/L CARBON DIOXIDE (test code = 26 MEQ/L 2206) CALCIUM (test code = 2209) 9.0 MG/DL PROTEIN, TOTAL (test code = 7.0 G/DL 2228) ALBUMIN (test code = 2201) 3.8 G/DL CALC GLOBULIN (test code = 3.2 G/DL 2240) CALC A/G RATIO (test code = 1.2 RATIO 2234) BILIRUBIN, TOTAL (test code = 0.1 MG/DL 2206) ALKALINE PHOSPHATASE (test 128 U/L code = 2204) AST (test code = 2218) 19 U/L ALT (test code = 2219) 19 U/L COMPREHENSIVE METABOLIC [id number] 00:00:00 Test Item Value Reference Range Interpretation Comments GLUCOSE (test code = 2217) 340 MG/DL BUN (test code = 2208) 9 MG/DL CREATININE (test code = 2214) 0.58 MG/DL eGFR AMER. (test code 137 ML/MIN/1.73 = 61447) eGFR NON- AMER. (test 119 ML/MIN/1.73 code = 34941) CALC BUN/CREAT (test code = 16 RATIO 2235) SODIUM (test code = 2231) 139 MEQ/L POTASSIUM (test code = 2228) 3.9 MEQ/L CHLORIDE (test code = 2215) 99 MEQ/L CARBON DIOXIDE (test code = 26 MEQ/L 220) CALCIUM (test code = 2209) 9.0 MG/DL PROTEIN, TOTAL (test code = 7.0 G/DL 2228) ALBUMIN (test code = 2201) 3.8 G/DL CALC GLOBULIN (test code = 3.2 G/DL 224) CALC A/G RATIO (test code = 1.2 RATIO 2234) BILIRUBIN, TOTAL (test code = 0.1 MG/DL 2206) ALKALINE PHOSPHATASE (test 128 U/L code = 2204) AST (test code = 2218) 19 U/L ALT (test code = 2219) 19 U/L LIPID [id number] 00:00:00 Test Item Value Reference Range Interpretation Comments CHOLESTEROL (test code = 2210) 200 MG/DL TRIGLYCERIDES (test code = 2232) 264 MG/DL HDL CHOLESTEROL (test code = 2220) 49 MG/DL CALC LDL CHOL (test code = 2237) 98 MG/DL RISK RATIO LDL/HDL (test code = 2.00 RATIO 2238) LIPID [id number] 00:00:00 Test Item Value Reference Range Interpretation Comments CHOLESTEROL (test code = 2210) 200 MG/DL TRIGLYCERIDES (test code = 2232) 264 MG/DL HDL CHOLESTEROL (test code = 2220) 49 MG/DL CALC LDL CHOL (test code = 2237) 98 MG/DL RISK RATIO LDL/HDL (test code = 2.00 RATIO 2238) CBC W/AUTO [id number] 00:00:00 Test Item Value Reference Range Interpretation Comments WBC (test code = 1001) 9.5 K/UL RBC (test code = 1002) 5.58 M/UL HEMOGLOBIN (test code = 1003) 11.0 G/DL HEMATOCRIT (test code = 1004) 37.3 % MCV (test code = 1005) 66.8 fL MCH (test code = 1006) 19.7 PG MCHC (test code = 1007) 29.5 G/DL RDW (test code = 1038) 15.5 % NEUTROPHILS (test code = 1008) 59.8 % LYMPHOCYTES (test code = 1010) 32.1 % MONOCYTES (test code = 1011) 7.0 % EOSINOPHILS (test code = 1012) 0.6 % BASOPHILS (test code = 1013) 0.5 % PLATELET COUNT (test code = 1015) 316 K/UL CBC W/AUTO [id number] 00:00:00 Test Item Value Reference Range Interpretation Comments WBC (test code = 1001) 9.5 K/UL RBC (test code = 1002) 5.58 M/UL HEMOGLOBIN (test code = 1003) 11.0 G/DL HEMATOCRIT (test code = 1004) 37.3 % MCV (test code = 1005) 66.8 fL MCH (test code = 1006) 19.7 PG MCHC (test code = 1007) 29.5 G/DL RDW (test code = 1038) 15.5 % NEUTROPHILS (test code = 1008) 59.8 % LYMPHOCYTES (test code = 1010) 32.1 % MONOCYTES (test code = 1011) 7.0 % EOSINOPHILS (test code = 1012) 0.6 % BASOPHILS (test code = 1013) 0.5 % PLATELET COUNT (test code = 1015) 316 K/UL CBC W/AUTO [id number] 00:00:00 Test Item Value Reference Range Interpretation Comments WBC (test code = 1001) 9.5 K/UL RBC (test code = 1002) 5.58 M/UL HEMOGLOBIN (test code = 1003) 11.0 G/DL HEMATOCRIT (test code = 1004) 37.3 % MCV (test code = 1005) 66.8 fL MCH (test code = 1006) 19.7 PG MCHC (test code = 1007) 29.5 G/DL RDW (test code = 1038) 15.5 % NEUTROPHILS (test code = 1008) 59.8 % LYMPHOCYTES (test code = 1010) 32.1 % MONOCYTES (test code = 1011) 7.0 % EOSINOPHILS (test code = 1012) 0.6 % BASOPHILS (test code = 1013) 0.5 % PLATELET COUNT (test code = 1015) 316 K/UL [id number] 00:00:00 Test Item Value Reference Range Interpretation Comments TSH (test code = 2821) 2.300 UIU/ML [id number] 00:00:00 Test Item Value Reference Range Interpretation Comments TSH (test code = 2821) 2.300 UIU/ML [id number] 00:00:00 Test Item Value Reference Range Interpretation Comments TSH (test code = 2821) 2.300 UIU/ML MICROALBUMIN/CREATININE, RANDOM AND [id number] 00:00:00 Test Item Value Reference Range Interpretation Comments CREATININE, URINE, CONC. (test 37.7 MG/DL code = 2072) MICROALBUMIN, RANDOM (test code = <0.2 MG/DL 77942) CALC MICROALB/CREAT RND (test code <5 MG/G = 48787) MICROALBUMIN/CREATININE, RANDOM AND [id number] 00:00:00 Test Item Value Reference Range Interpretation Comments CREATININE, URINE, CONC. (test 37.7 MG/DL code = 2072) MICROALBUMIN, RANDOM (test code = <0.2 MG/DL 86769) CALC MICROALB/CREAT RND (test code <5 MG/G = 36420) COMPREHENSIVE METABOLIC [id number] 00:00:00 Test Item Value Reference Range Interpretation Comments GLUCOSE (test code = 2217) 340 MG/DL BUN (test code = 2208) 9 MG/DL CREATININE (test code = 2214) 0.58 MG/DL eGFR AMER. (test code 137 ML/MIN/1.73 = 27005) eGFR NON- AMER. (test 119 ML/MIN/1.73 code = 55878) CALC BUN/CREAT (test code = 16 RATIO 2235) SODIUM (test code = 2231) 139 MEQ/L POTASSIUM (test code = 2228) 3.9 MEQ/L CHLORIDE (test code = 2215) 99 MEQ/L CARBON DIOXIDE (test code = 26 MEQ/L 2206) CALCIUM (test code = 2209) 9.0 MG/DL PROTEIN, TOTAL (test code = 7.0 G/DL 2228) ALBUMIN (test code = 2201) 3.8 G/DL CALC GLOBULIN (test code = 3.2 G/DL 0) CALC A/G RATIO (test code = 1.2 RATIO 4) BILIRUBIN, TOTAL (test code = 0.1 MG/DL 2206) ALKALINE PHOSPHATASE (test 128 U/L code = 2204) AST (test code = 2218) 19 U/L ALT (test code = 2219) 19 U/L LIPID [id number] 00:00:00 Test Item Value Reference Range Interpretation Comments CHOLESTEROL (test code = 2210) 200 MG/DL TRIGLYCERIDES (test code = 2232) 264 MG/DL HDL CHOLESTEROL (test code = 2220) 49 MG/DL CALC LDL CHOL (test code = 2237) 98 MG/DL RISK RATIO LDL/HDL (test code = 2.00 RATIO 2238) CBC W/AUTO [id number] 00:00:00 Test Item Value Reference Range Interpretation Comments WBC (test code = 1001) 9.5 K/UL RBC (test code = 1002) 5.58 M/UL HEMOGLOBIN (test code = 1003) 11.0 G/DL HEMATOCRIT (test code = 1004) 37.3 % MCV (test code = 1005) 66.8 fL MCH (test code = 1006) 19.7 PG MCHC (test code = 1007) 29.5 G/DL RDW (test code = 1038) 15.5 % NEUTROPHILS (test code = 1008) 59.8 % LYMPHOCYTES (test code = 1010) 32.1 % MONOCYTES (test code = 1011) 7.0 % EOSINOPHILS (test code = 1012) 0.6 % BASOPHILS (test code = 1013) 0.5 % PLATELET COUNT (test code = 1015) 316 K/UL CBC W/AUTO [id number] 00:00:00 Test Item Value Reference Range Interpretation Comments WBC (test code = 1001) 9.5 K/UL RBC (test code = 1002) 5.58 M/UL HEMOGLOBIN (test code = 1003) 11.0 G/DL HEMATOCRIT (test code = 1004) 37.3 % MCV (test code = 1005) 66.8 fL MCH (test code = 1006) 19.7 PG MCHC (test code = 1007) 29.5 G/DL RDW (test code = 1038) 15.5 % NEUTROPHILS (test code = 1008) 59.8 % LYMPHOCYTES (test code = 1010) 32.1 % MONOCYTES (test code = 1011) 7.0 % EOSINOPHILS (test code = 1012) 0.6 % BASOPHILS (test code = 1013) 0.5 % PLATELET COUNT (test code = 1015) 316 K/UL
[2022-01-17] MEDS ORDERED: HYDROCODONE/CHLORPHEN 5 ML/OSYR ONE (14:39)
[2022-01-17 14:49] LABS: Urine Blood 3+ (Negative); Urine Glucose 3+ (Negative); Urine Protein Negative (Negative); Urine Specific Gravity 1.015 (1.005-1.030); Urine pH 5.5 (5.0-7.0)
[2022-01-17 15:05] LABS: Urine Specific Gravity/Preg 1.015 (1.005-1.030)
[2022-01-17 15:28] LABS: SARS-COV-2 RT PCR NEGATIVE (NEGATIVE)
--- NOTE | 2022-01-17 16:07 | RAD REPORT ---
EXAM DESCRIPTION: Cory Hackett (2 Views)01/17/2022 2:58 pm CLINICAL HISTORY: Cough COMPARISON: 2014 FINDINGS: The lungs appear clear of acute infiltrate. The heart is normal size IMPRESSION: No acute abnormalities displayed
--- NOTE | 2022-01-17 16:13 | ER ---
Nurse's Notes [facility] Name: Ro Peterson Age: 41 yrs Sex: Female : 1980 Arrival Date: 01/17/2022 Time: 14:23 Bed DIS1 Private MD: Diagnosis: Acute upper respiratory infection, unspecified Presentation: 01/17 14:34 Chief complaint: Flu positive 2 weeks ago, c/o cough, congestion, runny nose, chest hb pain, and flank pain. Coronavirus screen: Client presents with at least one sign or symptom that may indicate coronavirus-19. Provider contacted for isolation considerations. Ebola Screen: No symptoms or risks identified at this time. Initial Sepsis Screen: Does the patient meet any 2 criteria? No. Patient's initial sepsis screen is negative. Does the patient have a suspected source of infection? No. Patient's initial sepsis screen is negative. Risk Assessment: Do you want to hurt yourself or someone else? Patient reports no desire to harm self or others. Onset of symptoms was December 27, 2021. 14:34 Method Of Arrival: Ambulatory hb 14:34 Acuity: PAVEL 4 hb Historical: - Allergies: 14:35 No Known Allergies; hb - Home Meds: 14:35 None [Active]; hb - PMHx: 14:35 Diabetes mellitus; high cholesterol; hypertension; hb - PSHx: 14:35 D\T\C; section; hb - Immunization history:: Adult Immunizations up to date. - Social history:: Smoking status: Patient denies any tobacco usage or history of. Screenin:43 Abuse screen: Denies threats or abuse. Denies injuries from another. Nutritional hb screening: No deficits noted. Tuberculosis screening: No symptoms or risk factors identified. Fall Risk None identified. Assessment: 16:42 General: Appears in no apparent distress. Behavior is calm, cooperative. Pain: Pain hb currently is 4 out of 10 on a pain scale. Neuro: Level of Consciousness is awake, alert, obeys commands, Oriented to person, place, time, situation. Cardiovascular: Patient's skin is warm and dry. Respiratory: Reports cough that is non-productive, Airway is patent Respiratory effort is even, unlabored, Respiratory pattern is regular, symmetrical. GI: No signs and/or symptoms were reported involving the gastrointestinal system. : No signs and/or symptoms were reported regarding the genitourinary system. EENT: Reports sore throat. Derm: Skin is pink, warm \T\ dry. Musculoskeletal: No signs and/or symptoms reported regarding the musculoskeletal system. Vital Signs: 14:34 BP 137 / 60; Pulse 76; Resp 17; Temp 99.2; Pulse Ox 98% on R/A; Weight 83.91 kg; Height hb 4 ft. 11 in. (149.86 cm); Pain 4/10; 14:34 Body Mass Index 37.36 (83.91 kg, 149.86 cm) hb ED Course: 14:23 Patient arrived in ED. jl7 14:24 [facility] Bet[facility]-C [facility]. kb 14:24 Ovlin Wetzel DO is Attending Physician. kb 14:35 Triage completed. hb 14:37 Arm band placed on. hb 15:00 Chest Pa And Lat (2 Views) XRAY In Process Unspecified. EDMS 16:41 Narcisa Gatica, RN is Primary Nurse. hb 16:43 Patient has correct armband on for positive identification. hb 16:43 No provider procedures requiring assistance completed. Patient did not have IV access hb during this emergency room visit. Administered Medications: 14:39 Drug: Tussionex Pennkinetic ER (chlorpheniramine-hydrocodone) Suspension 5 ml Route: PO;hb Medication: 16:43 VIS not applicable for this client. hb Outcome: 16:12 Discharge ordered by MD. kb 16:43 Discharged to home ambulatory, with significant other. hb 16:43 Condition: stable 16:43 Discharge instructions given to patient, significant other, Instructed on discharge instructions, follow up and referral plans. medication usage, Demonstrated understanding of instructions, follow-up care, medications. 16:44 Patient left the ED. hb Signatures: Dispatcher [employer] EDMS Anna Betts FNP-C FNP-Ckb Baxter, Heather, RN RN Amaury Shields RN RN jl7 Corrections: (The following items were deleted from the chart) 14:38 14:34 83.91 kg; Height 4 ft. 11 in.; BMI: 37.3; Pain 4/10; hb hb
--- NOTE | 2022-01-17 16:13 | EDPHYS ---
Physician Documentation [facility] Name: Ro Peterson Age: 41 yrs Sex: Female : 1980 Arrival Date: 01/17/2022 Time: 14:23 Bed DIS1 Private MD: ED Physician Olvin Wetzel HPI: 01/17 16:11 This 41 yrs old Female presents to ER via Ambulatory with complaints of Cough, kb Congestion, Sore Throat, Fever. 16:11 The patient or guardian reports cough, that is intermittent, described as moderate, flu kb symptoms, low-grade fever, myalgias. Onset: The symptoms/episode began/occurred 4 day(s) ago. Severity of symptoms: At their worst the symptoms were moderate, in the emergency department the symptoms are unchanged. Modifying factors: The symptoms are alleviated by nothing, the symptoms are aggravated by nothing. Associated signs and symptoms: Pertinent positives: chest pain, with cough, fever, rhinorrhea, sore throat. The patient has not experienced similar symptoms in the past. The patient has not recently seen a physician. 16:11 Pt reports she was diagnosed with the flu 2 weeks ago and has continued to have cough, kb congestion, chest pain with cough, fever, sore throat.. Historical: - Allergies: 14:35 No Known Allergies; hb - Home Meds: 14:35 None [Active]; hb - PMHx: 14:35 Diabetes mellitus; high cholesterol; hypertension; hb - PSHx: 14:35 D\T\C; section; hb - Immunization history:: Adult Immunizations up to date. - Social history:: Smoking status: Patient denies any tobacco usage or history of. ROS: 16:10 Abdomen/GI: Negative for abdominal pain, nausea, vomiting, diarrhea, and constipation. kb 16:10 Constitutional: Positive for body aches, chills, fatigue, fever, malaise. 16:10 ENT: Positive for rhinorrhea, sinus congestion, sore throat. 16:10 Cardiovascular: Positive for chest pain, with cough. 16:10 Respiratory: Positive for cough, Negative for dyspnea on exertion, hemoptysis, orthopnea, pleurisy, shortness of breath, sputum production, wheezing. 16:10 All other systems are negative. Exam: 16:10 Constitutional: This is a well developed, well nourished patient who is awake, alert, kb and in no acute distress. Head/Face: Normocephalic, atraumatic. ENT: Moist Mucous membranes Cardiovascular: Regular rate and rhythm with a normal S1 and S2. No gallops, murmurs, or rubs. No pulse deficits. Respiratory: Respirations even and unlabored. No increased work of breathing. Talking in full sentences Abdomen/GI: Soft, non-tender. No distention Skin: Warm, dry with normal turgor. Normal color. MS/ Extremity: Pulses equal, no cyanosis. Neurovascular intact. Full, normal range of motion. Neuro: Awake and alert, GCS 15, oriented to person, place, time, and situation. Moves all extremities. Normal gait. Psych: Awake, alert, with orientation to person, place and time. Behavior, mood, and affect are within normal limits. Vital Signs: 14:34 BP 137 / 60; Pulse 76; Resp 17; Temp 99.2; Pulse Ox 98% on R/A; Weight 83.91 kg; Height hb 4 ft. 11 in. (149.86 cm); Pain 4/10; 14:34 Body Mass Index 37.36 (83.91 kg, 149.86 cm) hb MDM: 14:28 Patient medically screened. kb 16:10 Data reviewed: vital signs, nurses notes. Data interpreted: Pulse oximetry: on room air kb is 98 %. Interpretation: normal. Counseling: I had a detailed discussion with the patient and/or guardian regarding: the historical points, exam findings, and any diagnostic results supporting the discharge/admit diagnosis, lab results, radiology results, the need for outpatient follow up, a family practitioner, to return to the emergency department if symptoms worsen or persist or if there are any questions or concerns that arise at home. 01/17 14:33 Order name: COVID-19/FLU A+B; Complete Time: 15:29 kb 01/17 14:33 Order name: Strep; Complete Time: 14:55 kb 01/17 14:33 Order name: Chest Pa And Lat (2 Views) XRAY; Complete Time: 16:10 kb 01/17 14:49 Order name: Urine Dipstick-Ancillary; Complete Time: 14:55 EDMS 01/17 14:50 Order name: Urine --Ancillary (enter results); Complete Time: 15:07 em1 01/17 14:57 Order name: Throat Culture EDMT 01/17 14:33 Order name: Urine Dipstick-Ancillary (obtain specimen); Complete Time: 14:50 kb 01/17 14:35 Order name: Urine Test (obtain specimen); Complete Time: 14:49 kb Administered Medications: 14:39 Drug: Tussionex Pennkinetic ER (chlorpheniramine-hydrocodone) Suspension 5 ml Route: PO;hb Disposition: 17:13 Co-signature as Attending Physician, Olvin Wetzel DO I was immediately available on-site ms3 in the Emergency Department for consultation in the care of the patient. Disposition Summary: 01/17/22 16:12 Discharge Ordered Location: Home kb Condition: Stable kb Diagnosis - Acute upper respiratory infection, unspecified kb Followup: kb - With: Emergency Department - When: As needed - Reason: Worsening of condition Followup: kb - With: Private Physician - When: 2 - 3 days - Reason: Recheck today's complaints, Continuance of care, Re-evaluation by your physician Discharge Instructions: - Discharge Summary Sheet kb - Upper Respiratory Infection, Adult, [id number] kb - Viral Respiratory Infection, [id number] kb Forms: - Medication Reconciliation Form kb - Thank You Letter kb - Antibiotic Education kb - Prescription Opioid Use kb - Work release form em1 Signatures: Dispatcher [employer] EDAnna Marmolejo, CRISTI-Celia COLIN-Narcisa Tony, RN RN Olvin Wetzel DO DO ms3
[2022-01-17 16:55] VITALS: BP 137/60; TEMP 99.2; O2SAT 98
== END 2022-01-17 16:44 | disposition home or self-care (01) ==
LOC: ER 14:20
DX: J06.9 Acute upper respiratory infection, unspecified (principal); Z20.822 Contact with and (suspected) exposure to COVID-19; I10 Essential (primary) hypertension
CPT/HCPCS: 87070; 81025; 87081; 81003; 0240U; 71046; 99283

== ENCOUNTER 2022-03-20 19:32 | Emergency (ER) | payer BC ==
--- OUTSIDE RECORDS SUMMARY | 2022-03-20 20:23 | XMS REPORT | Continuity of Care Document ---
:1980 Author Organization [facility] t Address [address] [place] [address] Care Team Providers Name Role Phone Nicholassuryluis Shae COLIN Primary Care Physician [phone] Lan Perry Attending Clinician Unavailable MONTEZ ROSALES Attending Clinician Unavailable CARLA VALERIO Attending Clinician Unavailable Laura Soria Attending Clinician Nora Baltazar MD Attending Clinician NORA BALTAZAR Attending Clinician Unavailable MERCEDES MUHAMMAD Attending Clinician Unavailable Lucian TORRES, Mercedes Hernandez Attending Clinician Iman Carla UP Attending Clinician [phone] Jaimee Smith MD Attending Clinician Lab, Ang-Rmchp Attending Clinician Unavailable PINA NICOLE Attending Clinician Unavailable Pina Paul Attending Clinician Skye Carrasco MD Attending Clinician [phone] Doctor Unassigned, [place] Attending Clinician Unavailable uAbrey TORRES, Garth Lam Attending Clinician [phone] Hemalatha Arenas MD Attending Clinician [phone] Johanny Elder MD Attending Clinician [facility] Attending Clinician Unavailable Hailey Conrad MD Attending Clinician HAILEY CONRAD Attending Clinician Unavailable Trimester, [facility] Res-1st Attending Clinician Unavailable THEO HUGHES Attending Clinician Unavailable Montez Rosales MD Attending Clinician YADIEL SANTIAGO Attending Clinician Unavailable Yadiel Santiago MD Attending Clinician DISHA BENAVIDEZ Attending Clinician Unavailable Risk, Hxl-Gheez-Rg/High Attending Clinician Unavailable Pramod Disha UP Attending Clinician NORA AMOR Attending Clinician Unavailable Nora Amor MD Attending Clinician Pcp, Patient Does Not Have A Attending Clinician [phone] Theo Hughes OD Attending Clinician KINGSTON KATZ Attending Clinician Unavailable Kingston Katz MD Attending Clinician ITZ BENAVIDEZ Attending Clinician Unavailable Itz Puentes Attending Clinician [facility] Attending Clinician Unavailable Matteo Harvey MD Attending Clinician MATTEO HARVEY Attending Clinician Unavailable ANTONIO BETANCOURT Attending Clinician Unavailable Antonio Betancourt MD Attending Clinician [phone] Leila Sanders MD Attending Clinician [phone] MONTEZ ROSALES Admitting Clinician Unavailable Montez Rosales MD Admitting Clinician ITZ BENAVIDEZ Admitting Clinician Unavailable Payers Payer Name Policy Type Policy Number Effective Date Expiration Date S marimar [employer] [place] - [id number] 2020 OUT OF STATE 00:00:00 [facility]ALTH [id number] 2021 CHOICE MEDICAID 00:00:00 ENVOLVE BENEFIT [id number] 2021 OPTIONS 00:00:00 Problems Condition Condition Condition Status Onset Resolution Last Treating Co mments Source Name Details Category Date Date Treatment Clinician Date Molar Molar Disease Active Overview: Univer s 07-17 Formattin i ty of 00:00: g of this 00 note is Medical different Branch from the original. Ro Peterson41 year oldAdmiss ion Date: 07/17/2021 Patient Phone#: [phone] [id number] 3LMP: 2CC: spotting and crampingE xam: Abdomen is soft. No mass palpated. No tendernes s present. There is no rigidity and no guarding. Control: UnknownIn itial bhc(06/21)--> 59805(06/21)--> 26.38(07/22)--> 10.89(07/23)--> 8.08(08/18 )Blood type: O+Hb.4Hct: 30Ultraso und Findings: [...] Added automatic ally from request for surgery [id number] Chlamydia Chlamydia Disease Active Overview: Univers infection infection - Formattin i ty of during during 00:00: g of this [place] 00 note Medi jamil might be Branch different from the original. angus neg AMA AMA Disease Active Univers (advanced (advanced 4-13 ity of maternal maternal 00:00: [place] age) age) 00 Medical multigravi multigravi Br anch da 35+, da 35+, first first trimester trimester Multiparit Multiparit Disease Active U nivers y y 4-13 ity of 00:00: [facility] Pre-existi Pre-existi Disease Active U nivers ng type 2 ng type 2 4-13 ity of diabetes diabetes 00:00: [place] mellitus mellitus 00 Medica l during during Branch in first in first trimester trimester Obesity in Obesity in Disease Active U nivers 4-13 ity of 00:00: [place] 00 [facility] Disease Active Uni vers with with 4-13 ity of inconclusi inconclusi [place] ve ve 00 Medica l viability, viability, Br anch single or single or unspecifie unspecifie d fetus d fetus Other Other Disease Active Univers general general 3-15 ity of counseling counseling [place] and advice and advice 00 Or dical for for Branch contracept contracept justa justa management management Bacterial Bacterial Disease Active Uni vers vaginosis vaginosis 7-18 ity of 00:00: [facility] Vaginal Vaginal Disease Active Univers zac zac 7-14 ity of 00:00: [place] 00 [facility] Hypertensi Hypertensi Disease Active U nivers on on 07-21 ity of 00:00: [place] [facility] Type 2 Type 2 Disease Active Overview: Univer s diabetes diabetes 07-21 Formattin ity of mellitus mellitus 00:00: g of this [place] as without without 00 note Medical complicati complicati might be Branch on, on, different unspecifie unspecifie from the d whether d whether original. 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 insulin DM use use Previous Previous Disease Active Unive rs 5-31 ity of section section 00:00: [address] Allergies, Adverse Reactions, Alerts Allergy Allergy Status Severity Reaction(s) Onset Inactive Treating Comm ents Source Name Type Date Date Clinician NO KNOWN Drug Active Univers ALLERGIE Class ity of S [facility] Social History Social Habit Start Date Stop Date Quantity Comments Source History SDOH University o f Alcohol Frequency [place] M edical Branch History SDKS University o f Alcohol Std [place] Medical Drinks Branch History [facility] University o f Alcohol Binge [place] Medic al [place] Exposure to 2022-03-06 2022-03-16 Not sure [facility] SARS-CoV-2 00:00:00 09:12:00 [facility] (event) [place] Alcohol intake 2022-03-16 2022-03-16 Ex-drinker [facility] 00:00:00 00:00:00 (finding) [facility] Tobacco use and 2021-10-08 2021-10-08 Smokeless tobacco Un iversity of exposure 00:00:00 00:00:00 non-user [facility] Alcohol Comment 2014-05-30 2014-05-30 occasionally Univers ity of 00:00:00 00:00:00 [facility] Sex Assigned At [birth year] Universit y of 00:00:00 00:00:00 [facility] Smoking Status Start Date Stop Date Source Never smoked tobacco [facility] Medications Ordered Filled Start Stop Current Ordering Indication Dosage Frequency Signature Comments Components Source Medication Medication Date Date Medication? Clinician (SIG) Name Name liraglutide Yes inject Univ ers 0.6 mg/0.1 1-24 under the ity of mL (18 mg/3 09:34: skin. [place] mL) 46 Medical injection Branch insulin Yes inject Univers degludec 1-24 under the ity of (TRESIBA 09:34: skin. [place] FLEXTOUCH 46 Medical U-100 SC) Branch liraglutide Yes inject Univ ers 0.6 mg/0.1 1-24 under the ity of mL (18 mg/3 09:34: skin. [place] mL) 46 Medical injection Branch insulin Yes inject Univers degludec 1-24 under the ity of (TRESIBA 09:34: skin. [place] FLEXTOUCH 46 Medical U-100 SC) Branch liraglutide 0 Yes inject Univ ers 0.6 mg/0.1 1-24 under the ity of mL (18 mg/3 09:34: skin. [place] mL) 46 Medical injection Branch insulin 0 Yes inject Univers degludec 1-24 under the ity of (TRESIBA 09:34: skin. [place] FLEXTOUCH 46 Medical U-100 SC) Branch liraglutide 0 Yes inject Univ ers 0.6 mg/0.1 1-24 under the ity of mL (18 mg/3 09:34: skin. [place] mL) 46 Medical injection Branch insulin 0 Yes inject Univers degludec 1-24 under the ity of (TRESIBA 09:34: skin. [place] FLEXTOUCH 46 Medical U-100 SC) Branch liraglutide Yes inject Univ ers 0.6 mg/0.1 1-24 under the ity of mL (18 mg/3 09:34: skin. [place] mL) 46 Medical injection Branch insulin 0 Yes inject Univers degludec 1-24 under the ity of (TRESIBA 09:34: skin. [place] FLEXTOUCH 46 Medical U-100 SC) Branch terbinafine 2022-0 Yes [id number] Apply to Univers HCL 1-24 area(s) 2 ity of (LAMISIL 00:00: (two) [place] AT) 1 % 00 times Medical cream daily. Branch terbinafine 2022-0 Yes [id number] Apply to Univers HCL 1-24 area(s) 2 ity of (LAMISIL 00:00: (two) [place] AT) 1 % 00 times Medical cream daily. Branch terbinafine 2022-0 Yes [id number] Apply to Univers HCL 1-24 area(s) 2 ity of (LAMISIL 00:00: (two) [place] AT) 1 % 00 times Medical cream daily. Branch terbinafine 202-0 Yes [id number] Apply to Univers HCL 1-24 area(s) 2 ity of (LAMISIL 00:00: (two) [place] AT) 1 % 00 times Medical cream daily. Branch terbinafine 2023-0 Yes [id number] Apply to Univers HCL 1-24 area(s) 2 ity of (LAMISIL 00:00: (two) [place] AT) 1 % 00 times Medical cream daily. Branch metroNIDAZO 2022-0 Yes [id number] 500mg Take 1 Univers LE 500 mg 1-19 tablet by ity o f tablet 00:00: mouth in [place] 00 the Medical morning Branch and 1 tablet in the evening. metroNIDAZO 2022-0 Yes [id number] 500mg Take 1 Univers LE 500 mg 1-19 tablet by ity o f tablet 00:00: mouth in [place] 00 the Medical morning Branch and 1 tablet in the evening. metroNIDAZO 2022-0 Yes [id number] 500mg Take 1 Univers LE 500 mg 1-19 tablet by ity o f tablet 00:00: mouth in [place] 00 the Medical morning Branch and 1 tablet in the evening. metroNIDAZO 2022-0 Yes [id number] 500mg Take 1 Univers LE 500 mg 1-19 tablet by ity o f tablet 00:00: mouth in [place] 00 the Medical morning Branch and 1 tablet in the evening. metroNIDAZO 2022-0 Yes [id number] 500mg Take 1 Univers LE 500 mg 1-19 tablet by ity o f tablet 00:00: mouth in [place] 00 the Medical morning Branch and 1 tablet in the evening. metroNIDAZO 2022-0 Yes [id number] 500mg Take 1 Univers LE 500 mg 1-19 tablet by ity o f tablet 00:00: mouth in [place] 00 the Medical morning Branch and 1 tablet in the evening. metroNIDAZO 2022-0 Yes [id number] 500mg Take 1 Univers LE 500 mg 1-19 tablet by ity o f tablet 00:00: mouth in [place] 00 the Medical morning Branch and 1 tablet in the evening. fluconazole 2022- Yes [id number] 150mg Take 1 Univers (DIFLUCAN) -11 03-20 tablet by ity of 150 mg 00:00: 05:59 [place] tablet 00 :00 now for 1 Medical dose. Branch fluconazole 2022- Yes [id number] 150mg Take 1 Univers (DIFLUCAN) 1-11 03-20 tablet by ity of 150 mg 00:00: 05:59 mouth [place] tablet 00 :00 now for 1 Medical dose. Branch SYNJARDY XR 2021-02 Yes TAKE 1 Univ ers 12.5-1,000 2-29 TABLET BY ity of mg TBph 00:00: MOUTH [place] 00 EVERY DAY Medical WITH Branch BREAKFAST 30 SYNJARDY XR 2021-02 Yes TAKE 1 Univ ers 12.5-1,000 2-29 TABLET BY ity of mg TBph 00:00: MOUTH [place] 00 EVERY DAY Medical WITH Branch BREAKFAST 30 SYNJARDY XR 2021-02 Yes TAKE 1 Univ ers 12.5-1,000 2-29 TABLET BY ity of mg TBph 00:00: MOUTH [place] 00 EVERY DAY Medical WITH Branch BREAKFAST 30 TRESIBA 2021-02 Yes INJECT 30 Unive rs FLEXTOUCH 2-29 UNITS ity of U-200 200 00:00: [place]BCUTANEO [place] unit/mL (3 00 US ONCE A Medi jamil mL) InPn DAY 30 Branch DAYS SYNJARDY XR 2021-02 Yes TAKE 1 Univ ers 12.5-1,000 2-29 TABLET BY ity of mg TBph 00:00: MOUTH [place] 00 EVERY DAY Medical WITH Branch BREAKFAST 30 TRESIBA 2021-02 Yes INJECT 30 Unive rs FLEXTOUCH 2-29 UNITS ity of U-200 200 00:00: [place]BC[place]ANEO [place] unit/mL (3 00 US ONCE A Medi jamil mL) InPn DAY 30 Branch DAYS SYNJARDY XR 2021-02 Yes TAKE 1 Univ ers 12.5-1,000 2-29 TABLET BY ity of mg TBph 00:00: MOUTH [place] 00 EVERY DAY Medical WITH Branch BREAKFAST 30 lisinopriL 2021-02 Yes TAKE 1 Unive rs 5 mg tablet 1-07 TABLET BY ity of 00:00: MOUTH [place] 00 EVERY DAY Medical FOR 90 Branch DAYS simvastatin 2021-02 Yes TAKE 1 Univ ers 20 mg 1-07 TABLET BY ity of tablet 00:00: MOUTH [place] 00 EVERY DAY Medical IN THE Branch EVENING FOR 90 DAYS lisinopriL 2021-02 Yes TAKE 1 Unive rs 5 mg tablet 1-07 TABLET BY ity of 00:00: MOUTH [place] 00 EVERY DAY Medical FOR 90 Branch DAYS simvastatin 2021-02 Yes TAKE 1 Univ ers 20 mg 1-07 TABLET BY ity of tablet 00:00: MOUTH [place] 00 EVERY DAY Medical IN THE Branch EVENING FOR 90 DAYS lisinopriL 2021-02 Yes TAKE 1 Unive rs 5 mg tablet 1-07 TABLET BY ity of 00:00: MOUTH 00 EVERY DAY Medical FOR 90 Branch DAYS simvastatin 2021-02 Yes TAKE 1 Univ ers 20 mg 1-07 TABLET BY ity of tablet 00:00: MOUTH 00 EVERY DAY Medical IN THE [place] EVENING FOR 90 DAYS lisinopriL 2021-02 Yes TAKE 1 Unive rs 5 mg tablet 1-07 TABLET BY ity of 00:00: MOUTH 00 EVERY DAY Medical FOR 90 Branch DAYS simvastatin 2021-02 Yes TAKE 1 Univ ers 20 mg 1-07 TABLET BY ity of tablet 00:00: MOUTH 00 EVERY DAY Medical IN THE Branch EVENING FOR 90 DAYS lisinopriL 2021-02 Yes TAKE 1 Unive rs 5 mg tablet 1-07 TABLET BY ity of 00:00: MOUTH 00 EVERY DAY Medical FOR 90 Branch DAYS simvastatin 2021-02 Yes TAKE 1 Univ ers 20 mg 1-07 TABLET BY ity of tablet 00:00: MOUTH 00 EVERY DAY Medical IN THE [place] EVENING FOR 90 DAYS Dose 2021-1 No Unknown 0-20 00:00: 00 Dose 2021-1 No Unknown 0-20 00:00: 00 Dose 2022-0 No Unknown 8-18 00:00: 00 Dose 2022-0 No Unknown 8-18 00:00: 00 &lt 2022-0 No 8-11 00:00: 00 Dose 2022-0 No Unknown 8-11 00:00: 00 &lt 2022-0 No 8-11 00:00: 00 Dose 2022-0 No Unknown 8-11 00:00: 00 &lt 2022-0 No 18 8-08 00:00: 00 &lt 2022-0 No 500 8-08 00:00: 00 INJECT 2022-0 No UNITS BELOW 8-08 THE SKIN 17 00:00: UNITS EVERY 00 MORNING AND 35 UNITS AT BEDTIME &lt 2022-0 No 8-08 00:00: 00 &lt 2022-0 No 18 8-08 00:00: 00 &lt 2022-0 No 500 8-08 00:00: 00 INJECT 2022-0 No UNITS BELOW 8-08 THE SKIN 17 00:00: UNITS EVERY 00 MORNING AND 35 UNITS AT BEDTIME &lt 2022-0 No 8-08 00:00: 00 INJECT 13 2022-0 No UNITS 7-30 SUBCUTANEOU 00:00: SLY EVERY 00 MORNING AND 30 UNITS AT BEDTIME INJECT 13 2021-0 No UNITS 09-19 SUBCUTANEOU 00:00: SLY EVERY 00 MORNING AND 30 UNITS AT BEDTIME Dose 2-0 No Unknown 09-18 00:00: 00 fluticasone 2022-0 No 2mcg/ac propionate 09-18 tuation 50 00:00: mcg/actuati 00 on nasal spray,suspe nsion &lt 2021-0 No 09-18 00:00: 00 &lt 2022-0 No 18 09-18 00:00: 00 INJECT 2022-0 No UNDER THE 09-18 SKING 15 00:00: UNITS EVERY 00 MORNING AND 11 UNITS AT BEDTIME Dose 2-0 No Unknown 09-18 00:00: 00 fluticasone 2021-0 No 2mcg/ac propionate 09-18 tuation 50 00:00: mcg/actuati 00 on nasal spray,suspe nsion &lt 2021-0 No 09-18 00:00: 00 &lt 2-0 No 18 09-18 00:00: 00 INJECT 2022-0 No UNDER THE 09-18 SKING 15 00:00: UNITS EVERY 00 MORNING AND 11 UNITS AT BEDTIME Sudafed 12 2021-0 No 1mg Hour 120 mg 09-18 tablet,exte 00:00: nded 00 release fluticasone 2021-0 No 2mcg/ac propionate 09-18 tuation 50 00:00: mcg/actuati 00 on nasal spray,suspe nsion &lt 2021-0 No 09-18 00:00: 00 &lt 2022-0 No 18 09-18 00:00: 00 INJECT 2022-0 No UNDER THE 09-18 SKING 15 00:00: UNITS EVERY 00 MORNING AND 11 UNITS AT BEDTIME TAKE 2 2021-0 No TABLETS BY 6-17 MOUTH DAILY 00:00: FOR 1 DAY. 00 TAKE 2 2-0 No TABLETS BY 6-17 MOUTH DAILY 00:00: FOR 1 DAY. 00 TAKE 2 2022-0 No TABLETS BY 6-17 MOUTH DAILY 00:00: FOR 1 DAY. 00 Novolin N 2-0 No (3 mL) Flexpen 100 6-16 unit/mL (3 00:00: mL) 00 subcutaneou s insulin pen Novolin R 2022-0 No (3 mL) Flexpen 100 6-16 unit/mL (3 00:00: mL) 00 subcutaneou s insulin pen TAKE 1 2021-0 No TABLET BY 6-16 MOUTH EVERY 00:00: DAY 00 &lt 2022-0 No 6-16 00:00: 00 INJECT 13 2021-0 No UNITS 6-16 SUBCUTANEOU 00:00: SLY EVERY 00 MORNING AND 30 UNITS AT BEDTIME Novolin N 2022-0 No (3 mL) Flexpen 100 6-16 unit/mL (3 00:00: mL) 00 subcutaneou s insulin pen Novolin R 2021-0 No (3 mL) Flexpen 100 6-16 unit/mL (3 00:00: mL) 00 subcutaneou s insulin pen TAKE 1 2021-0 No TABLET BY 6-16 MOUTH EVERY 00:00: DAY 00 &lt 2021-0 No 6-16 00:00: 00 INJECT 13 2021-0 No UNITS 6-16 SUBCUTANEOU 00:00: SLY EVERY 00 MORNING AND 30 UNITS AT BEDTIME Novolin N 2021-0 No (3 mL) Flexpen 100 6-16 unit/mL (3 00:00: mL) 00 subcutaneou s insulin pen Novolin R 2021-0 No (3 mL) Flexpen 100 6-16 unit/mL (3 00:00: mL) 00 subcutaneou s insulin pen TAKE 1 2021-0 No TABLET BY 6-16 MOUTH EVERY 00:00: DAY 00 &lt 2021-0 No 6-16 00:00: 00 INJECT 13 2021-0 No UNITS 6-16 SUBCUTANEOU 00:00: SLY EVERY 00 MORNING AND 30 UNITS AT BEDTIME &lt 2021-0 No 6-15 00:00: 00 &lt 2-0 No 6-15 00:00: 00 &lt 2021-0 No 6-15 00:00: 00 liraglutide 2021-0 Yes [...] Medical (18 mg/3 Branch mL) injection insulin 2022-0 Yes inject Univers degludec 5-31 under the [...] Medical (18 mg/3 Branch mL) injection insulin 2022-0 Yes inject Univers degludec 5-31 under the ity of (TRESIBA 17:03: skin. [place] FLEXTOUCH 56 Medical U-100 SC) Branch liraglutide Yes inject Univ ers (VICTOZA 5-31 under the ity of 2-SHONDA) 0.6 17:03: skin. [place] mg/0.1 mL 56 Medical (18 mg/3 Branch mL) injection insulin Yes inject Univers degludec 5-31 under the ity of (TRESIBA 17:03: skin. [place] FLEXTOUCH 56 Medical U-100 SC) Branch ibuprofen Yes [id number] 800mg Take 1 U nivers 800 mg 5-31 tablet by ity of tablet 00:00: mouth [place] 00 every 6 Medical (six) Branch hours as needed for Pain (scale 1-3) or Pain (scale 4-6). ibuprofen 0 Yes [id number] 800mg Take 1 U nivers 800 mg 5-31 tablet by ity of tablet 00:00: mouth [place] 00 every 6 Medical (six) Branch hours as needed for Pain (scale 1-3) or Pain (scale 4-6). ibuprofen 0 Yes [id number] 800mg Take 1 U nivers 800 mg 5-31 tablet by ity of tablet 00:00: mouth [place] 00 every 6 Medical (six) Branch hours as needed for Pain (scale 1-3) or Pain (scale 4-6). ibuprofen 0 Yes [id number] 800mg Take 1 U nivers 800 mg 5-31 tablet by ity of tablet 00:00: mouth [place] 00 every 6 Medical (six) Branch hours as needed for Pain (scale 1-3) or Pain (scale 4-6). ibuprofen 2021-0 Yes [id number] 800mg Take 1 U nivers 800 mg 5-31 tablet by ity of tablet 00:00: mouth [place] 00 every 6 Medical (six) Branch hours as needed for Pain (scale 1-3) or Pain (scale 4-6). ibuprofen 2021-0 Yes [id number] 800mg Take 1 U nivers 800 mg 5-31 tablet by ity of tablet 00:00: mouth [place] 00 every 6 Medical (six) Branch hours as needed for Pain (scale 1-3) or Pain (scale 4-6). ibuprofen 2021-0 Yes [id number] 800mg Take 1 U nivers 800 mg 5-31 tablet by ity of tablet 00:00: mouth [place] 00 every 6 Medical (six) Branch hours as needed for Pain (scale 1-3) or Pain (scale 4-6). ibuprofen 2021-0 Yes [id number] 800mg Take 1 U nivers 800 mg 5-31 tablet by ity of tablet 00:00: mouth [place] 00 every 6 Medical (six) Branch hours as needed for Pain (scale 1-3) or Pain (scale 4-6). ibuprofen 2021-0 Yes [id number] 800mg Take 1 U nivers 800 mg 5-31 tablet by ity of tablet 00:00: mouth [place] 00 every 6 Medical (six) Branch hours as needed for Pain (scale 1-3) or Pain (scale 4-6). ibuprofen 2021-0 Yes [id number] 800mg Take 1 U nivers 800 mg 5-31 tablet by ity of tablet 00:00: mouth [place] 00 every 6 Medical (six) Branch hours as needed for Pain (scale 1-3) or Pain (scale 4-6). ibuprofen 2021-0 Yes [id number] 800mg Take 1 U nivers 800 mg 5-31 tablet by ity of tablet 00:00: mouth [place] 00 every 6 Medical (six) Branch hours as needed for Pain (scale 1-3) or Pain (scale 4-6). ibuprofen 2021-0 Yes [id number] 800mg Take 1 U nivers 800 mg 5-31 tablet by ity of tablet 00:00: mouth [place] 00 every 6 Medical (six) Branch hours as needed for Pain (scale 1-3) or Pain (scale 4-6). ibuprofen 2021-0 Yes [id number] 800mg Take 1 U nivers 800 mg 5-31 tablet by ity of tablet 00:00: mouth [place] 00 every 6 Medical (six) Branch hours as needed for Pain (scale 1-3) or Pain (scale 4-6). ibuprofen 2021-0 Yes [id number] 800mg Take 1 U nivers 800 mg 5-31 tablet by ity of tablet 00:00: mouth [place] 00 every 6 Medical (six) Branch hours as needed for Pain (scale 1-3) or Pain (scale 4-6). ibuprofen 2021-0 Yes [id number] 800mg Take 1 U nivers 800 mg 5-31 tablet by ity of tablet 00:00: mouth [place] 00 every 6 Medical (six) Branch hours as needed for Pain (scale 1-3) or Pain (scale 4-6). ibuprofen 2021-0 Yes [id number] 800mg Take 1 U nivers 800 mg 5-31 tablet by ity of tablet 00:00: mouth [place] 00 every 6 Medical (six) Branch hours as needed for Pain (scale 1-3) or Pain (scale 4-6). ibuprofen 2021-0 Yes [id number] 800mg Take 1 U nivers 800 mg 5-31 tablet by ity of tablet 00:00: mouth [place] 00 every 6 Medical (six) Branch hours as needed for Pain (scale 1-3) or Pain (scale 4-6). ibuprofen 2021-0 Yes [id number] 800mg Take 1 U nivers 800 mg 5-31 tablet by ity of tablet 00:00: mouth [place] 00 every 6 Medical (six) Branch hours as needed for Pain (scale 1-3) or Pain (scale 4-6). ibuprofen 2021-0 Yes [id number] 800mg Take 1 U nivers 800 mg 5-31 tablet by ity of tablet 00:00: mouth [place] 00 every 6 Medical (six) Branch hours as needed for Pain (scale 1-3) or Pain (scale 4-6). ibuprofen 2021-0 Yes [id number] 800mg Take 1 U nivers 800 mg 5-31 tablet by ity of tablet 00:00: mouth [place] 00 every 6 Medical (six) Branch hours as needed for Pain (scale 1-3) or Pain (scale 4-6). ibuprofen 2021-0 Yes [id number] 800mg Take 1 U nivers 800 mg 5-31 tablet by ity of tablet 00:00: mouth [place] 00 every 6 Medical (six) Branch hours as needed for Pain (scale 1-3) or Pain (scale 4-6). ibuprofen 2021-0 Yes [id number] 800mg Take 1 U nivers 800 mg 5-31 tablet by ity of tablet 00:00: mouth [place] 00 every 6 Medical (six) Branch hours as needed for Pain (scale 1-3) or Pain (scale 4-6). ibuprofen 2021-0 Yes [id number] 800mg Take 1 U nivers 800 mg 5-31 tablet by ity of tablet 00:00: [facility] [place] 00 every 6 Medical (six) Branch hours as needed for Pain (scale 1-3) or Pain (scale 4-6). insulin 2021-0 Yes [id number] 15 units Un js regular 5-26 QAM and 17 ity of human 00:00: units [facility] (NOVOLIN R 00 Medical REGULAR Branch U-100 INSULN) 100 unit/mL injection insulin NPH 2021-0 Yes [id number] 15units Univers (NOVOLIN N 5-26 QAM and 32 ity of NPH U-100 00:00: at [facility] INSULIN) 00 Medical 100 unit/mL Branch injection insulin 2021-0 Yes [id number] 15 units Un js regular 5-26 QAM and 17 ity of human 00:00: units [facility] (NOVOLIN R 00 Medical REGULAR Branch U-100 INSULN) 100 unit/mL injection insulin NPH 2021-0 Yes [id number] 15units Univers (NOVOLIN N 5-26 QAM and 32 ity of NPH U-100 00:00: at [facility] INSULIN) 00 Medical 100 unit/mL Branch injection insulin 2021-0 Yes [id number] 15 units Un js regular 5-26 QAM and 17 ity of human 00:00: units [facility] (NOVOLIN R 00 Medical REGULAR Branch U-100 INSULN) 100 unit/mL injection insulin NPH 2021-0 Yes [id number] 15units Univers (NOVOLIN N 5-26 QAM and 32 ity of NPH U-100 00:00: at [facility] INSULIN) 00 Medical 100 unit/mL Branch injection insulin 2021-0 Yes [id number] 15 units Un js regular 5-26 QAM and 17 ity of human 00:00: units [facility] (NOVOLIN R 00 Medical REGULAR Branch U-100 INSULN) 100 unit/mL injection insulin NPH 2022-0 Yes [id number] 15units Univers (NOVOLIN N 5-26 QAM and 32 ity of NPH U-100 00:00: at [facility] INSULIN) 00 Medical 100 unit/mL Branch injection insulin 2022-0 Yes [id number] 15 units Un js regular 5-26 QAM and 17 ity of human 00:00: units [facility] (NOVOLIN R 00 Medical REGULAR Branch U-100 INSULN) 100 unit/mL injection insulin NPH 2021-0 Yes [id number] 15units Univers (NOVOLIN N 5-26 QAM and 32 ity of NPH U-100 00:00: at [facility] INSULIN) 00 Medical 100 unit/mL Branch injection insulin 2021-0 Yes [id number] 15 units Un js regular 5-26 QAM and 17 ity of human 00:00: units [facility] (NOVOLIN R 00 Medical REGULAR Branch U-100 INSULN) 100 unit/mL injection insulin NPH 2021-0 Yes [id number] 15units Univers (NOVOLIN N 5-26 QAM and 32 ity of NPH U-100 00:00: at [facility] INSULIN) 00 Medical 100 unit/mL Branch injection insulin 2021-0 Yes [id number] 15 units Un js regular 5-26 QAM and 17 ity of human 00:00: units [facility] (NOVOLIN R 00 Medical REGULAR Branch U-100 INSULN) 100 unit/mL injection insulin NPH 2021-0 Yes [id number] 15units Univers (NOVOLIN N 5-26 QAM and 32 ity of NPH U-100 00:00: at [facility] INSULIN) 00 Medical 100 unit/mL Branch injection insulin 2021-0 Yes [id number] 15 units Un js regular 5-26 QAM and 17 ity of human 00:00: units [facility] (NOVOLIN R 00 Medical REGULAR Branch U-100 INSULN) 100 unit/mL injection insulin NPH 2021-0 Yes [id number] 15units Univers (NOVOLIN N 5-26 QAM and 32 ity of NPH U-100 00:00: at [facility] INSULIN) 00 Medical 100 unit/mL Branch injection insulin 2021-0 Yes [id number] 15 units Un js regular 5-26 QAM and 17 ity of human 00:00: units [facility] (NOVOLIN R 00 Medical REGULAR Branch U-100 INSULN) 100 unit/mL injection insulin NPH 2021-0 Yes [id number] 15units Univers (NOVOLIN N 5-26 QAM and 32 ity of NPH U-100 00:00: at [facility] INSULIN) 00 Medical 100 unit/mL Branch injection insulin 2021-0 Yes [id number] 15 units Un js regular 5-26 QAM and 17 ity of human 00:00: units [facility] (NOVOLIN R 00 Medical REGULAR Branch U-100 INSULN) 100 unit/mL injection insulin NPH 2-0 Yes [id number] 15units Univers (NOVOLIN N 5-26 QAM and 32 ity of NPH U-100 00:00: at [facility] INSULIN) 00 Medical 100 unit/mL Branch injection insulin 2021-0 Yes [id number] 15 units Un js regular 5-26 QAM and 17 ity of human 00:00: units [facility] (NOVOLIN R 00 Medical REGULAR Branch U-100 INSULN) 100 unit/mL injection insulin NPH 2021-0 Yes [id number] 15units Univers (NOVOLIN N 5-26 QAM and 32 ity of NPH U-100 00:00: at [facility] INSULIN) 00 Medical 100 unit/mL Branch injection insulin 2021-0 Yes [id number] 15 units Un js regular 5-26 QAM and 17 ity of human 00:00: units [facility] (NOVOLIN R 00 Medical REGULAR Branch U-100 INSULN) 100 unit/mL injection insulin NPH 2021-0 Yes [id number] 15units Univers (NOVOLIN N 5-26 QAM and 32 ity of NPH U-100 00:00: at [facility] INSULIN) 00 Medical 100 unit/mL Branch injection insulin 2021-0 Yes [id number] 15 units Un js regular 5-26 QAM and 17 ity of human 00:00: units [facility] (NOVOLIN R 00 Medical REGULAR Branch U-100 INSULN) 100 unit/mL injection insulin NPH 2021-0 Yes [id number] 15units Univers (NOVOLIN N 5-26 QAM and 32 ity of NPH U-100 00:00: at [facility] INSULIN) 00 Medical 100 unit/mL Branch injection insulin 2022-0 Yes [id number] 15 units Un js regular 5-26 QAM and 17 ity of human 00:00: units [facility] (NOVOLIN R 00 Medical REGULAR Branch U-100 INSULN) 100 unit/mL injection insulin NPH 2022-0 Yes [id number] 15units Univers (NOVOLIN N 5-26 QAM and 32 ity of NPH U-100 00:00: at [facility] INSULIN) 00 Medical 100 unit/mL Branch injection insulin 2021-0 Yes [id number] 15 units Un js regular 5-26 QAM and 17 ity of human 00:00: units [facility] (NOVOLIN R 00 Medical REGULAR Branch U-100 INSULN) 100 unit/mL injection insulin NPH 2021-0 Yes [id number] 15units Univers (NOVOLIN N 5-26 QAM and 32 ity of NPH U-100 00:00: at [facility] INSULIN) 00 Medical 100 unit/mL Branch injection insulin 2021-0 Yes [id number] 15 units Un js regular 5-26 QAM and 17 ity of human 00:00: units [facility] (NOVOLIN R 00 Medical REGULAR Branch U-100 INSULN) 100 unit/mL injection insulin NPH 2021-0 Yes [id number] 15units Univers (NOVOLIN N 5-26 QAM and 32 ity of NPH U-100 00:00: at [facility] INSULIN) 00 Medical 100 unit/mL Branch injection insulin 2021-0 Yes [id number] 15 units Un js regular 5-26 QAM and 17 ity of human 00:00: units [facility] (NOVOLIN R 00 Medical REGULAR Branch U-100 INSULN) 100 unit/mL injection insulin NPH 2021-0 Yes [id number] 15units Univers (NOVOLIN N 5-26 QAM and 32 ity of NPH U-100 00:00: at [facility] INSULIN) 00 Medical 100 unit/mL Branch injection insulin 2021-0 Yes [id number] 15 units Un js regular 5-26 QAM and 17 ity of human 00:00: units [facility] (NOVOLIN R 00 Medical REGULAR Branch U-100 INSULN) 100 unit/mL injection insulin NPH 2021-0 Yes [id number] 15units Univers (NOVOLIN N 5-26 QAM and 32 ity of NPH U-100 00:00: at [facility] INSULIN) 00 Medical 100 unit/mL Branch injection insulin 2021-0 Yes [id number] 15 units Un js regular 5-26 QAM and 17 ity of human 00:00: units [facility] (NOVOLIN R 00 Medical REGULAR Branch U-100 INSULN) 100 unit/mL injection insulin NPH 2021-0 Yes [id number] 15units Univers (NOVOLIN N 5-26 QAM and 32 ity of NPH U-100 00:00: at [facility] INSULIN) 00 Medical 100 unit/mL Branch injection insulin 2021-0 Yes [id number] 15 units Un js regular 5-26 QAM and 17 ity of human 00:00: units [facility] (NOVOLIN R 00 Medical REGULAR Branch U-100 INSULN) 100 unit/mL injection insulin NPH 2021-0 Yes [id number] 15units Univers (NOVOLIN N 5-26 QAM and 32 ity of NPH U-100 00:00: at [facility] INSULIN) 00 Medical 100 unit/mL Branch injection insulin 2021-0 Yes [id number] 15 units Un js regular 5-26 QAM and 17 ity of human 00:00: units [facility] (NOVOLIN R 00 Medical REGULAR Branch U-100 INSULN) 100 unit/mL injection insulin NPH 2021-0 Yes [id number] 15units Univers (NOVOLIN N 5-26 QAM and 32 ity of NPH U-100 00:00: at [facility] INSULIN) 00 Medical 100 unit/mL Branch injection insulin 2021-0 Yes [id number] 15 units Un js regular 5-26 QAM and 17 ity of human 00:00: units [facility] (NOVOLIN R 00 Medical REGULAR Branch U-100 INSULN) 100 unit/mL injection insulin NPH 2021-0 Yes [id number] 15units Univers (NOVOLIN N 5-26 QAM and 32 ity of NPH U-100 00:00: at [facility] INSULIN) 00 Medical 100 unit/mL Branch injection insulin 2021-0 Yes [id number] 15 units Un js regular 5-26 QAM and 17 ity of human 00:00: units [facility] (NOVOLIN R 00 Medical REGULAR Branch U-100 INSULN) 100 unit/mL injection insulin NPH 2021-0 Yes [id number] 15units Univers (NOVOLIN N 5-26 QAM and 32 ity of NPH U-100 00:00: at [facility] INSULIN) 00 Medical 100 unit/mL Branch injection Blood 2021-0 Yes [id number] Use as Univer s Pressure 4-25 directed ity of Monitor Kit 00:00: [place] 00 Medical Branch Insulin 2021-0 Yes [id number] Use as Univ ers Syringe-Nee 4-25 directed ity of dle U-100 00:00: [place] (BD INSULIN 00 Medical SYRINGE Branch MICROFINE) 1 mL 27 gauge x 5/8" Syrg Blood 2021-0 Yes [id number] Use as Univer s Pressure 4-25 directed ity of Monitor Kit 00:00: [place] 00 Medical Branch Insulin 2021-0 Yes [id number] Use as Univ ers Syringe-Nee 4-25 directed ity of dle U-100 00:00: [place] (BD INSULIN 00 Medical SYRINGE Branch MICROFINE) 1 mL 27 gauge x 5/8" Syrg Blood 2021-0 Yes [id number] Use as Univer s Pressure 4-25 directed ity of Monitor Kit 00:00: [place] 00 Medical Branch Insulin 2021-0 Yes [id number] Use as Univ ers Syringe-Nee 4-25 directed ity of dle U-100 00:00: [place] (BD INSULIN 00 Medical SYRINGE Branch MICROFINE) 1 mL 27 gauge x 5/8" Syrg Blood 2021-0 Yes [id number] Use as Univer s Pressure 4-25 directed ity of Monitor Kit 00:00: [place] 00 Medical Branch Insulin 2021-0 Yes [id number] Use as Univ ers Syringe-Nee 4-25 directed ity of dle U-100 00:00: [place] (BD INSULIN 00 Medical SYRINGE Branch MICROFINE) 1 mL 27 gauge x 5/8" Syrg Blood 2021-0 Yes [id number] Use as Univer s Pressure 4-25 directed ity of Monitor Kit 00:00: [place] 00 Medical Branch Insulin 2021-0 Yes [id number] Use as Univ ers Syringe-Nee 4-25 directed ity of dle U-100 00:00: [place] (BD INSULIN 00 Medical SYRINGE Branch MICROFINE) 1 mL 27 gauge x 5/8" Syrg Blood 2021-0 Yes [id number] Use as Univer s Pressure 4-25 directed ity of Monitor Kit 00:00: [place] 00 Medical Branch Insulin 2021-0 Yes [id number] Use as Univ ers Syringe-Nee 4-25 directed ity of dle U-100 00:00: [place] (BD INSULIN 00 Medical SYRINGE Branch MICROFINE) 1 mL 27 gauge x 5/8" Syrg Blood 2021-0 Yes [id number] Use as Univer s Pressure 4-25 directed ity of Monitor Kit 00:00: [place] 00 Medical Branch Insulin 2-0 Yes [id number] Use as Univ ers Syringe-Nee 4-25 directed ity of dle U-100 00:00: [place] (BD INSULIN 00 Medical SYRINGE Branch MICROFINE) 1 mL 27 gauge x 5/8" Syrg Blood 2-0 Yes [id number] Use as Univer s Pressure 4-25 directed ity of Monitor Kit 00:00: [place] 00 Medical Branch Insulin 2-0 Yes [id number] Use as Univ ers Syringe-Nee 4-25 directed ity of dle U-100 00:00: [place] (BD INSULIN 00 Medical SYRINGE Branch MICROFINE) 1 mL 27 gauge x 5/8" Syrg Blood 2-0 Yes [id number] Use as Univer s Pressure 4-25 directed ity of Monitor Kit 00:00: [place] 00 Medical Branch Insulin 2-0 Yes [id number] Use as Univ ers Syringe-Nee 4-25 directed ity of dle U-100 00:00: [place] (BD INSULIN 00 Medical SYRINGE Branch MICROFINE) 1 mL 27 gauge x 5/8" Syrg Blood 2-0 Yes [id number] Use as Univer s Pressure 4-25 directed ity of Monitor Kit 00:00: [place] 00 Medical Branch Insulin 2-0 Yes [id number] Use as Univ ers Syringe-Nee 4-25 directed ity of dle U-100 00:00: [place] (BD INSULIN 00 Medical SYRINGE Branch MICROFINE) 1 mL 27 gauge x 5/8" Syrg Blood 2-0 Yes [id number] Use as Univer s Pressure 4-25 directed ity of Monitor Kit 00:00: [place] 00 Medical Branch Insulin 2022-0 Yes [id number] Use as Univ ers Syringe-Nee 4-25 directed ity of dle U-100 00:00: [place] (BD INSULIN 00 Medical SYRINGE Branch MICROFINE) 1 mL 27 gauge x 5/8" Syrg Blood 2-0 Yes [id number] Use as Univer s Pressure 4-25 directed ity of Monitor Kit 00:00: [place] 00 Medical Branch Insulin 2022-0 Yes [id number] Use as Univ ers Syringe-Nee 4-25 directed ity of dle U-100 00:00: [place] (BD INSULIN 00 Medical SYRINGE Branch MICROFINE) 1 mL 27 gauge x 5/8" Syrg Blood 2-0 Yes [id number] Use as Univer s Pressure 4-25 directed ity of Monitor Kit 00:00: [place] 00 Medical Branch Insulin 2-0 Yes [id number] Use as Univ ers Syringe-Nee 4-25 directed ity of dle U-100 00:00: [place] (BD INSULIN 00 Medical SYRINGE Branch MICROFINE) 1 mL 27 gauge x 5/8" Syrg Blood 2-0 Yes [id number] Use as Univer s Pressure 4-25 directed ity of Monitor Kit 00:00: [place] 00 Medical Branch Insulin 2-0 Yes [id number] Use as Univ ers Syringe-Nee 4-25 directed ity of dle U-100 00:00: [place] (BD INSULIN 00 Medical SYRINGE Branch MICROFINE) 1 mL 27 gauge x 5/8" Syrg Blood 2-0 Yes [id number] Use as Univer s Pressure 4-25 directed ity of Monitor Kit 00:00: [place] 00 Medical Branch Insulin 2-0 Yes [id number] Use as Univ ers Syringe-Nee 4-25 directed ity of dle U-100 00:00: [place] (BD INSULIN 00 Medical SYRINGE Branch MICROFINE) 1 mL 27 gauge x 5/8" Syrg Blood 2-0 Yes [id number] Use as Univer s Pressure 4-25 directed ity of Monitor Kit 00:00: [place] 00 Medical Branch Insulin 2-0 Yes [id number] Use as Univ ers Syringe-Nee 4-25 directed ity of dle U-100 00:00: [place] (BD INSULIN 00 Medical SYRINGE Branch MICROFINE) 1 mL 27 gauge x 5/8" Syrg Blood 2-0 Yes [id number] Use as Univer s Pressure 4-25 directed ity of Monitor Kit 00:00: [place] 00 Medical Branch Insulin 2-0 Yes [id number] Use as Univ ers Syringe-Nee 4-25 directed ity of dle U-100 00:00: [place] (BD INSULIN 00 Medical SYRINGE Branch MICROFINE) 1 mL 27 gauge x 5/8" Syrg Blood 2-0 Yes [id number] Use as Univer s Pressure 4-25 directed ity of Monitor Kit 00:00: [place] 00 Medical Branch Insulin 2022-0 Yes [id number] Use as Univ ers Syringe-Nee 4-25 directed ity of dle U-100 00:00: [place] (BD INSULIN 00 Medical SYRINGE Branch MICROFINE) 1 mL 27 gauge x 5/8" Syrg Blood 2021-0 Yes [id number] Use as Univer s Pressure 4-25 directed ity of Monitor Kit 00:00: [place] 00 Medical Branch Insulin 2021-0 Yes [id number] Use as Univ ers Syringe-Nee 4-25 directed ity of dle U-100 00:00: [place] (BD INSULIN 00 Medical SYRINGE Branch MICROFINE) 1 mL 27 gauge x 5/8" Syrg Blood 2021-0 Yes [id number] Use as Univer s Pressure 4-25 directed ity of Monitor Kit 00:00: [place] 00 Medical Branch Insulin 2021-0 Yes [id number] Use as Univ ers Syringe-Nee 4-25 directed ity of dle U-100 00:00: [place] (BD INSULIN 00 Medical SYRINGE Branch MICROFINE) 1 mL 27 gauge x 5/8" Syrg Blood 2021-0 Yes [id number] Use as Univer s Pressure 4-25 directed ity of Monitor Kit 00:00: [place] 00 Medical Branch Insulin 2021-0 Yes [id number] Use as Univ ers Syringe-Nee 4-25 directed ity of dle U-100 00:00: [place] (BD INSULIN 00 Medical SYRINGE Branch MICROFINE) 1 mL 27 gauge x 5/8" Syrg Blood 2021-0 Yes [id number] Use as Univer s Pressure 4-25 directed ity of Monitor Kit 00:00: [place] 00 Medical Branch Insulin 2021-0 Yes [id number] Use as Univ ers Syringe-Nee 4-25 directed ity of dle U-100 00:00: [place] (BD INSULIN 00 Medical SYRINGE Branch MICROFINE) 1 mL 27 gauge x 5/8" Syrg Blood 2021-0 Yes [id number] Use as Univer s Pressure 4-25 directed ity of Monitor Kit 00:00: [place] 00 Medical Branch Insulin 2021-0 Yes [id number] Use as Univ ers Syringe-Nee 4-25 directed ity of dle U-100 00:00: [place] (BD INSULIN 00 Medical SYRINGE Branch MICROFINE) 1 mL 27 gauge x 5/8" Syrg 2022-0 Yes [id number] 1{packe Take 1 Univers vit 4-13 t} Packet by ity of 33-iron-fol 00:00: mouth [place] ic-dha 00 daily. Medical (SELECT-OB Branch + DHA) 29 mg iron-1 mg -250 mg combo pack Yes [id number] 1{packe Take 1 Univers vit 4-13 t} Packet by ity of 33-iron-fol 00:00: mouth [place] ic-dha 00 daily. Medical (SELECT-OB Branch + DHA) 29 mg iron-1 mg -250 mg combo pack Yes [id number] 1{packe Take 1 Univers vit 4-13 t} Packet by ity of 33-iron-fol 00:00: mouth [place] ic-dha 00 daily. Medical (SELECT-OB Branch + DHA) 29 mg iron-1 mg -250 mg combo pack Yes [id number] 1{packe Take 1 Univers vit 4-13 t} Packet by ity of 33-iron-fol 00:00: mouth [place] ic-dha 00 daily. Medical (SELECT-OB Branch + DHA) 29 mg iron-1 mg -250 mg combo pack Yes [id number] 1{packe Take 1 Univers vit 4-13 t} Packet by ity of 33-iron-fol 00:00: mouth [place] ic-dha 00 daily. Medical (SELECT-OB Branch + DHA) 29 mg iron-1 mg -250 mg combo pack Yes [id number] 1{packe Take 1 Univers vit 4-13 t} Packet by ity of 33-iron-fol 00:00: mouth [place] ic-dha 00 daily. Medical (SELECT-OB Branch + DHA) 29 mg iron-1 mg -250 mg combo pack Yes [id number] 1{packe Take 1 Univers vit 4-13 t} Packet by ity of 33-iron-fol 00:00: mouth [place] ic-dha 00 daily. Medical (SELECT-OB Branch + DHA) 29 mg iron-1 mg -250 mg combo pack Yes [id number] 1{packe Take 1 Univers vit 4-13 t} Packet by ity of 33-iron-fol 00:00: mouth [place] ic-dha 00 daily. Medical (SELECT-OB Branch + DHA) 29 mg iron-1 mg -250 mg combo pack Yes [id number] 1{packe Take 1 Univers vit 4-13 t} Packet by ity of 33-iron-fol 00:00: mouth [place] ic-dha 00 daily. Medical (SELECT-OB Branch + DHA) 29 mg iron-1 mg -250 mg combo pack 0 Yes [id number] 1{packe Take 1 Univers vit 4-13 t} Packet by ity of 33-iron-fol 00:00: mouth [place] ic-dha 00 daily. Medical (SELECT-OB Branch + DHA) 29 mg iron-1 mg -250 mg combo pack Yes [id number] 1{packe Take 1 Univers vit 4-13 t} Packet by ity of 33-iron-fol 00:00: mouth [place] ic-dha 00 daily. Medical (SELECT-OB Branch + DHA) 29 mg iron-1 mg -250 mg combo pack Yes [id number] 1{packe Take 1 Univers vit 4-13 t} Packet by ity of 33-iron-fol 00:00: mouth [place] ic-dha 00 daily. Medical (SELECT-OB Branch + DHA) 29 mg iron-1 mg -250 mg combo pack Yes [id number] 1{packe Take 1 Univers vit 4-13 t} Packet by ity of 33-iron-fol 00:00: mouth [place] ic-dha 00 daily. Medical (SELECT-OB Branch + DHA) 29 mg iron-1 mg -250 mg combo pack Yes [id number] 1{packe Take 1 Univers vit 4-13 t} Packet by ity of 33-iron-fol 00:00: mouth [place] ic-dha 00 daily. Medical (SELECT-OB Branch + DHA) 29 mg iron-1 mg -250 mg combo pack Yes [id number] 1{packe Take 1 Univers vit 4-13 t} Packet by ity of 33-iron-fol 00:00: mouth [place] ic-dha 00 daily. Medical (SELECT-OB Branch + DHA) 29 mg iron-1 mg -250 mg combo pack Yes [id number] 1{packe Take 1 Univers vit 4-13 t} Packet by ity of 33-iron-fol 00:00: mouth [place] ic-dha 00 daily. Medical (SELECT-OB Branch + DHA) 29 mg iron-1 mg -250 mg combo pack Yes [id number] 1{packe Take 1 Univers vit 4-13 t} Packet by ity of 33-iron-fol 00:00: mouth [place] ic-dha 00 daily. Medical (SELECT-OB Branch + DHA) 29 mg iron-1 mg -250 mg combo pack Yes [id number] 1{packe Take 1 Univers vit 4-13 t} Packet by ity of 33-iron-fol 00:00: mouth [place] ic-dha 00 daily. Medical (SELECT-OB Branch + DHA) 29 mg iron-1 mg -250 mg combo pack Yes [id number] 1{packe Take 1 Univers vit 4-13 t} Packet by ity of 33-iron-fol 00:00: mouth [place] ic-dha 00 daily. Medical (SELECT-OB Branch + DHA) 29 mg iron-1 mg -250 mg combo pack Yes [id number] 1{packe Take 1 Univers vit 4-13 t} Packet by ity of 33-iron-fol 00:00: mouth [place] ic-dha 00 daily. Medical (SELECT-OB Branch + DHA) 29 mg iron-1 mg -250 mg combo pack Yes [id number] 1{packe Take 1 Univers vit 4-13 t} Packet by ity of 33-iron-fol 00:00: mouth [place] ic-dha 00 daily. Medical (SELECT-OB Branch + DHA) 29 mg iron-1 mg -250 mg combo pack Yes [id number] 1{packe Take 1 Univers vit 4-13 t} Packet by ity of 33-iron-fol 00:00: mouth [place] ic-dha 00 daily. Medical (SELECT-OB Branch + DHA) 29 mg iron-1 mg -250 mg combo pack Yes [id number] 1{packe Take 1 Univers vit 4-13 t} Packet by ity of 33-iron-fol 00:00: mouth [place] ic-dha 00 daily. Medical (SELECT-OB Branch + DHA) 29 mg iron-1 mg -250 mg combo pack Dose 2021-1 No Unknown 2-14 00:00: 00 Dose 2020-1 No Unknown 2-14 00:00: 00 Dose 2020-1 No Unknown 2-14 00:00: 00 Dose 2020-1 No Unknown 2-14 00:00: 00 Dose 2020-1 No Unknown 2-14 00:00: 00 Dose 2020-1 No Unknown 2-14 00:00: 00 glipizide 5 [...] 100 00:00: unit/mL 00 subcutaneou s solution Victoza 2020-0 No (18 3-Shonda 0.6 5-03 mg/3 mg/0.1 mL 00:00: mL) (18 mg/3 00 mL) subcutaneou s pen injector Tresiba 2020-0 No unit/mL U-100 5-03 Insulin 100 00:00: unit/mL 00 subcutaneou s solution ibuprofen 2020-0 No 1mg 600 mg 4-30 tablet 00:00: 00 Bromfed DM 2020-0 No 10mg/5 2 mg-30 4-30 mL mg-10 mg/5 00:00: mL oral 00 syrup ibuprofen 2021-0 No 1mg 600 mg 4-30 tablet 00:00: 00 Bromfed DM 2021-0 No 10mg/5 2 mg-30 4-30 mL mg-10 mg/5 00:00: mL oral 00 syrup ibuprofen 2021-0 No 1mg 600 mg 4-30 tablet 00:00: 00 Bromfed DM 2021-0 No 10mg/5 2 mg-30 4-30 mL mg-10 mg/5 00:00: mL oral 00 syrup Protonix 40 2021-0 No 1mg mg 3-12 [...] 00:00: mL oral 00 syrup glipizide 5 2017-1 No 1mg mg tablet 0-16 00:00: 00 lovastatin 2017-1 No 1mg 20 mg 0-16 tablet 00:00: 00 metformin 2017-1 No 1mg 500 mg 0-16 tablet 00:00: 00 glipizide 5 2016-1 No 1mg mg tablet 0-16 00:00: 00 lovastatin 2017-1 No 1mg 20 mg 0-16 tablet 00:00: 00 metformin 2017-1 No 1mg 500 mg 0-16 tablet 00:00: 00 glipizide 5 2016-1 No 1mg mg tablet 0-16 00:00: 00 lovastatin 2016- No 1mg 20 mg 0-16 tablet 00:00: 00 metformin 2016- No 1mg 500 mg 0-16 tablet 00:00: 00 metformin 2016- No 1mg 500 mg 0-09 tablet 00:00: 00 metformin 2016- No 1mg 500 mg 0-09 tablet 00:00: 00 metformin 2016- No 1mg 500 mg 0-09 tablet 00:00: 00 Immunizations Ordered Filled Immunization Date Status Comments Sour e Immunization Name Name Influenza, 2016-11-29 Completed seasonal, inj 00:00:00 Influenza, 2016-11-29 Completed seasonal, inj 00:00:00 Influenza, 2016-11-29 Completed seasonal, inj 00:00:00 TDAP 2014-05-30 Completed [facility] of 00:00:00 [facility] TDAP 2014-05-30 Completed University of 00:00:00 [facility] TDAP 2014-05-30 Completed University of 00:00:00 [facility] TDAP 2014-05-30 Completed University of 00:00:00 [facility] TDAP 2014-05-30 Completed University of 00:00:00 [facility] TDAP 2014-05-30 Completed University of 00:00:00 [facility] TDAP 2014-05-30 Completed University of 00:00:00 [facility] TDAP 2014-05-30 Completed University of 00:00:00 [facility] TDAP 2014-05-30 Completed University of 00:00:00 [facility] TDAP 2014-05-30 Completed University of 00:00:00 [facility] TDAP 2014-05-30 Completed University of 00:00:00 [facility] TDAP 2014-05-30 Completed University of 00:00:00 [facility] TDAP 2014-05-30 Completed University of 00:00:00 [facility] TDAP 2014-05-30 Completed University of 00:00:00 [facility] TDAP 2014-05-30 Completed University of 00:00:00 [facility] TDAP 2014-05-30 Completed University of 00:00:00 [facility] TDAP 2014-05-30 Completed University of 00:00:00 [facility] TDAP 2014-05-30 Completed University of 00:00:00 [facility] TDAP 2014-05-30 Completed University of 00:00:00 [place] [facility] TDAP 2014-05-30 Completed University of 00:00:00 [place] [facility] TDAP 2014-05-30 Completed University of 00:00:00 [place] [facility] TDAP 2014-05-30 Completed University of 00:00:00 [place] [facility] TDAP 2014-05-30 Completed University of 00:00:00 [place] [facility] Td 2003-02-21 Completed University of 00:00:00 [place] [facility] Td 2003-02-21 Completed University of 00:00:00 [place] [facility] Td 2003-02-21 Completed University of 00:00:00 [place] [facility] Td 2003-02-21 Completed University of 00:00:00 [place] [facility] Td 2003-02-21 Completed University of 00:00:00 [place] [facility] Td 2003-02-21 Completed University of 00:00:00 [place] [facility] Td 2003-02-21 Completed University of 00:00:00 [place] [facility] Td 2003-02-21 Completed University of 00:00:00 [place] [facility] Td 2003-02-21 Completed University of 00:00:00 [place] [facility] Td 2003-02-21 Completed University of 00:00:00 [place] [facility] Td 2003-02-21 Completed University of 00:00:00 [place] [facility] TD, NOS 2003-02-21 Completed University of 00:00:00 [place] [facility] TD, NOS 2003-02-21 Completed University of 00:00:00 [place] [facility] TD, NOS 2003-02-21 Completed University of 00:00:00 [place] [facility] TD, NOS 2003-02-21 Completed University of 00:00:00 [place] [facility] TD, NOS 2003-02-21 Completed University of 00:00:00 [place] [facility] TD, NOS 2003-02-21 Completed University of 00:00:00 [place] [facility] TD, NOS 2003-02-21 Completed University of 00:00:00 [place] [facility] TD, NOS 2003-02-21 Completed University of 00:00:00 [place] [facility] TD, NOS 2003-02-21 Completed University of 00:00:00 [place] [facility] TD, NOS 2003-02-21 Completed University of 00:00:00 [place] [facility] TD, NOS 2003-02-21 Completed University of 00:00:00 [place] [facility] TD, NOS 2003-02-21 Completed University of 00:00:00 [facility] Vital Signs Vital Name Observation Time Observation Value Comments Source Systolic blood 2022-03-16 21:05:00 112 mm[Hg] Univer sity of pressure [place] [facility] Diastolic blood 2022-03-16 21:05:00 75 mm[Hg] Unive rsity of pressure [place] [facility] Heart rate 2022-03-16 21:05:00 74 /min [facility] [place] [facility] Body temperature 2022-03-16 21:05:00 36.78 Nina [facility] [place] [facility] Body height 2022-03-16 21:05:00 149.9 cm [facility] [place] [facility] Body weight 2022-03-16 21:05:00 89.359 kg [facility] [place] [facility] BMI 2022-03-16 21:05:00 39.79 kg/m2 [facility] [place] [facility] Systolic blood 2022-03-16 15:33:00 112 mm[Hg] Univer sity of pressure [place] [facility] Diastolic blood 2022-03-16 15:33:00 75 mm[Hg] Unive rsity of pressure [place] [facility] Heart rate 2022-03-16 15:33:00 74 /min [facility] [place] [facility] Body temperature 2022-03-16 15:33:00 36.78 Nina [facility] [place] [facility] Body height 2022-03-16 15:33:00 149.9 cm [facility] [place] [facility] Body weight 2022-03-16 15:33:00 89.614 kg [facility] [place] [facility] BMI 2022-03-16 15:33:00 39.90 kg/m2 [facility] [place] [facility] Systolic blood 2022-03-09 19:58:00 108 mm[Hg] Univer sity of pressure [place] [facility] Diastolic blood 2022-03-09 19:58:00 69 mm[Hg] [facility] Heart rate 2022-03-09 19:58:00 80 /min [facility] Body temperature 2022-03-09 19:58:00 36.61 Nina [facility] Respiratory rate 2022-03-09 19:58:00 18 /min [facility] Body height 2022-03-09 19:58:00 149.9 cm [facility] Body weight 2022-03-09 19:58:00 89.132 kg [facility] BMI 2022-03-09 19:58:00 39.69 kg/m2 [facility] BP Systolic 2021-12-26 10:51:00 BP Diastolic 2021-12-26 [...] Procedure Date / Time Performed Performing Clinician Sour e TOTAL BETA HCG ASSAY 2021-12-01 15:25:00 Skye Carrasco [facility] TOTAL BETA HCG ASSAY 2021-10-14 13:45:00 Skye Carrasco [facility] DISCLOSURE AND CONSENT 2021-10-08 05:01:00 Doctor Unassigned, No University [facility] MEDICAL & SURGICAL Name Medical Bran h PROCEDURES - FEMALM Plan of Care Planned Activity Planned Date Details Comments Source Goal Plan of Care Note [code = 01903-5] Goal Plan of Care Note [code = 26018-0] Goal Plan of Care Note [code = 25972-7] Goal Plan of Care Note [code = 26359-9] Goal Plan of Care Note [code = 24663-5] Goal Plan of Care Note [code = 11390-5] Goal Plan of Care Note [code = 70763-0] Goal Plan of Care Note [code = 58324-4] Goal Plan of Care Note [code = 36783-0] Goal Plan of Care Note [code = 12661-4] Goal Plan of Care Note [code = 72705-8] Goal Plan of Care Note [code = 23001-4] Goal Plan of Care Note [code = 58889-0] Goal Plan of Care Note [code = 10797-0] Goal Plan of Care Note [code = 39163-4] Goal Plan of Care Note [code = 95794-8] Goal Plan of Care Note [code = 01456-3] Goal Plan of Care Note [code = 80604-6] Goal Plan of Care Note [code = 55090-7] Goal Plan of Care Note [code = 89809-8] Goal Plan of Care Note [code = 43472-1] Goal Plan of Care Note [code = 15787-2] Goal Plan of Care Note [code = 57168-2] Goal Plan of Care Note [code = 95390-5] Goal Plan of Care Note [code = 35815-6] Goal Plan of Care Note [code = 22207-4] Goal Plan of Care Note [code = 91035-9] Goal Plan of Care Note [code = 45990-2] Goal Plan of Care Note [code = 31837-1] Goal Plan of Care Note [code = 24838-8] Goal Plan of Care Note [code = 66659-5] Goal Plan of Care Note [code = 21869-8] Goal Plan of Care Note [code = 53131-9] Goal Plan of Care Note [code = 25240-7] Goal Plan of Care Note [code = 36002-7] Goal Plan of Care Note [code = 16927-6] Goal Plan of Care Note [code = 55329-1] Goal Plan of Care Note [code = 91245-8] Goal Plan of Care Note [code = 66157-8] Goal Plan of Care Note [code = 72663-2] Goal Plan of Care Note [code = 85636-1] Goal Plan of Care Note [code = 77494-2] Goal Plan of Care Note [code = 91650-9] Goal Plan of Care Note [code = 34024-0] Goal Plan of Care Note [code = 23321-7] Goal Plan of Care Note [code = 59265-7] Goal Plan of Care Note [code = 10692-4] Goal Plan of Care Note [code = 05150-5] Goal Plan of Care Note [code = 73675-9] Goal Plan of Care Note [code = 65089-5] Goal Plan of Care Note [code = 55051-5] Goal Plan of Care Note [code = 07999-8] Goal Plan of Care Note [code = 56071-2] Goal Plan of Care Note [code = 55239-0] Goal Plan of Care Note [code = 38272-1] Goal Plan of Care Note [code = 49088-3] Goal Plan of Care Note [code = 17231-2] Goal Plan of Care Note [code = 14413-7] Goal Plan of Care Note [code = 53162-1] Goal Plan of Care Note [code = 26098-6] Goal Plan of Care Note [code = 81634-6] Goal Plan of Care Note [code = 81486-0] Goal Plan of Care Note [code = 08763-5] Goal Plan of Care Note [code = 45331-4] Goal Plan of Care Note [code = 32819-8] Goal Plan of Care Note [code = 02711-5] Goal Plan of Care Note [code = 80595-0] Goal Plan of Care Note [code = 35799-4] Goal Plan of Care Note [code = 41071-6] Goal Plan of Care Note [code = 01831-0] Goal Plan of Care Note [code = 57345-0] Goal Plan of Care Note [code = 37176-4] Encounters Start End Encounter Admission Attending Care Care Encounter Source Date/Time Date/Time Type Type Clinicians Facility Department ID 2022-03-18 [facility] [place] [id number] Common 14:09:03 [facility] [address] [facility] 2022-01-25 Outpatient Perry, [facility] [id number] Common 08:45:04 Lan [facility] 2021-12-24 Outpatient Perry, [facility]LMLC [facility] [id number] Common 13:41:03 Lan [facility] 2021-12-21 Outpatient Perry, STLC [facility] [id number] Common 14:56:04 Lan [facility] 2021-12-10 Outpatient Perry, STLMLC [facility] [id number] Common 10:58:07 Lan [facility] 2021-11-06 Outpatient [place], [facility] [id number] Common 10:57:01 Lan [facility] 2021-07-17 Outpatient R JAN [facility] SHOP FOREMAN [id number] Univers 13:03:19 MONTEZ [facility] 2022-07-07 2022-07-07 Outpatient R IMAN, [facility] [id number] Univers 13:30:00 13:30:00 CARLA grimm o f [facility] 2022-03-20 2022-03-20 Outpatient SFA SFA [id number] 023 Javad 11:03:36 11:03:36 0128 F Kevin 2022-03-16 2022-03-16 Office Laura Li [facility] 1.2.840.114 [id number] Univers 14:00:00 16:05:36 Visit Nora Baltazar SPECIALTY 350.1.13.10 ity of CARE 4.2.7.2.686 [facility] AT [phone] [facility] [address] [place] [address] 2022-03-16 2022-03-16 Outpatient Russ MUHAMMAD [facility] [id number] Univers 09:45:00 10:55:19 MERCEDES grimm [facility] 2022-03-16 2022-03-16 Office Lucian [facility] 1.2.976.812 [id number] Univers 09:45:00 10:55:19 Visit Mercedes Hernandez SPECIALTY 350.1.13.10 ity of CARE 4.2.7.2.686 [place] AT [phone] Or matthew LIN [address] [place] [address] 2022-03-11 2022-03-11 Telephone [facility] 1.2.840.114 [id number] Univers 00:00:00 00:00:00 Carla C SENIOR RESEARCH FELLOW 350.1.13.10 ity of REGIONAL 4.2.7.2.686 Shaji as MATERNAL [phone] [facility] & CHILD [address] [place] [address] 2022-03-09 2022-03-09 [facility] [id number] Univers 13:45:00 14:46:29 CARLA jackiemichael yousif [facility] 2022-03-09 2022-03-09 Office [facility] 1.2.775.167 [id number] Univers 13:45:00 14:46:29 Visit Carla Yang SENIOR RESEARCH FELLOW 350.1.13.10 ity of [facility] 4.2.7.2.686 Shaji as MATERNAL [phone] [address] 2022-01-19 2022-01-19 Outpatient [facility] [id number] Univers 14:00:00 14:00:00 CARLA yousif [facility] 2022-01-15 2022-01-15 Outpatient [id number]- [id number]-r 00:00:00 00:00:00 Visit ead6-49ff ad6-49ff-9 -9fae-add selena-tpb062 6140m719o 8k419h 2022-01-01 2022-01-01 Telephone [facility] 1.2.840.114 [id number] [facility] 00:00:00 00:00:00 Carla C SENIOR RESEARCH FELLOW 350.1.13.10 ity of [facility] 4.2.7.2.686 Shaji as MATERNAL [phone] [facility] & [address] 2021-12-26 2021-12-26 Outpatient FEI ENAMORADO [id number] Amanda Farnsworth 13:06:31 13:06:31 1105 F Kevin 2021-12-262021-12-26 Outpatient [id number] b1 [id number]-b 00:00:00 00:00:00 Visit kv11-691o i08-328p-0 -861d-1ab 61d-4vt067 764on31r8 ec51e7 2021-12-04 2021-12-04 TEQUILA BlakelyIT 1.2.066.787 [id number] Univers 00:00:00 00:00:00 Management [facility] 350.1.13.10 ity of [facility] [phone] [address] 2021-12-01 2021-12-01 Deputy Commonwealth'S Attorney Lab, [facility] 1.2.840. 114 [id number] [facility] 10:30:00 10:30:00 Visit Carla Valerio SENIOR RESEARCH FELLOW 350.1.13. 10 ity [facility] 4.2.7.2.686 Shaji as MATERNAL [phone] [facility] ical & CHILD [address] [place] [address] 2021-12-01 2021-12-01 [facility] [id number] Univers 10:30:00 10:24:12 CARLA schwartz [facility] 2021-11-25 2021-11-25 [facility] [id number] Univers 08:15:00 08:15:00 CARLA schwartz [facility] 2021-11-20 2021-11-20 Office [facility] 1.2.018.810 [id number] [facility] 09:30:00 09:45:00 Visit Carla Yang SENIOR RESEARCH FELLOW 350.1.13.10 ity [facility] 4.2.7.2.686 Shaji as MATERNAL [phone] [facility] & [address] 2021-11-20 2021-11-20 Outpatient [facility] [id number] Univers 09:30:00 09:30:00 CARLA schwartz [facility] 2021-11-20 2021-11-20 Outpatient [facility] [id number] Univers 09:30:00 09:30:00 CARLA jackiemichael o nica [facility] 2021-11-20 2021-11-20 Outpatient R IMAN [facility] [id number] Univers 09:30:00 09:30:00 CARLA jackiemichael o nica [facility] 2021-10-14 2021-10-14 Outpatient R BONNIE [facility] [id number] Univers 08:30:00 08:47:47 PINA mejiamichael yousif [facility] 2021-10-14 2021-10-14 Deputy [employer]'S Attorney Lab, Ang-Rmchp [facility] 1.2.840. 114 [id number] Univers 08:30:00 08:47:47 Visit Nicole, Pina R SENIOR RESEARCH FELLOW 350.1.13.10 ity of REGIONAL 4.2.7.2.686 Shaji as MATERNAL [phone] [facility] ical & CHILD [address] [place] [address] 2021-10-13 2021-10-13 [facility]phone [facility] 1.2.840.114 [id number] Univers 00:00:00 00:00:00 Carla C SENIOR RESEARCH FELLOW 350.1.13.10 ity of REGIONAL 4.2.7.2.686 Shaji as MATERNAL [phone] [facility] & CHILD [address] [place] [address] 2021-10-09 2021-10-09 Office [facility] 1.2.712.534 [id number] Univers 09:00:00 09:30:00 Visit Carla C SENIOR RESEARCH FELLOW 350.1.13.10 ity of REGIONAL 4.2.7.2.686 Shaji as MATERNAL [phone] [facility] ical & CHILD [address] [place] [address] 2021-10-09 2021-10-09 Telephone [facility] 1.2.840.114 [id number] Univers 00:00:00 00:00:00 Carla C SENIOR RESEARCH FELLOW 350.1.13.10 ity of REGIONAL 4.2.7.2.686 Shaji as MATERNAL [phone] [facility] ical & CHILD [address] [place] [address] 2021-10-08 2021-10-08 Office [facility] 1.2.185.916 [id number] Univers 14:15:00 15:27:10 Visit Carla Yang SENIOR RESEARCH FELLOW 350.1.13.10 ity [facility] 4.2.7.2.686 Shaji as MATERNAL [phone] [facility] ical & CHILD [address] [place] [address] 2021-10-08 2021-10-08 Outpatient [facility] [id number] Univers 14:15:00 15:27:10 CARLA grimm o f [facility] 2021-10-08 2021-10-08 [facility] [id number] Univers 14:15:00 14:15:00 CARLA schwartz f [facility] 2021-10-08 2021-10-08 Case CarrascoTEQUILA 1.2.840.114 [id number] Univers 00:00:00 00:00:00 [facility] 350.1.13.10 ity [facility] 4.2.7.2.[place] [id number] [facility] [address] 2021-10-08 2021-10-08 Orders Doctor LIZBETH 1.2.840.114 [id number] Univers 00:00:00 00:00:00 Only Unassigned, VADIM 350.1.13.10 ity of [place] [facility] 4.2.7.2.686 Shaji as [phone] [facility] [address] 2021-09-18 2021-09-18 Outpatient [id number] d5 86vqo5-6 00:00:00 00:00:00 Visit 55d2-422t 3k6-377l-u -i0wd-sfx 9ce-fcd01f 03os17tr3 c50cc5 2021-09-18 2021-09-18 [facility] 1.2.780.414 [id number] Univers 00:00:00 00:00:00 Carla Yang SENIOR RESEARCH FELLOW 350.1.13.10 ity of [facility] 4.2.7.2.686 Shaji as MATERNAL [id number] [facility] ical & CHILD [address] [place] [address] 2021-09-16 2021-09-16 Telephone LIZBETH Burgos 1.2.840.114 [id number] Univers 00:00:00 00:00:00 Garth FIERRO 350.1.13.10 it y of [facility] 4.2.7.2.686 Shaji as [phone] [address] 2021-09-15 2021-09-15 Deputy [employer]'S Attorney Lab, [facility] 1.2.840. 114 [id number] Univers 08:30:00 08:53:59 Visit Pina Nicole R SENIOR RESEARCH FELLOW 350.1.13.10 ity of [facility] 4.2.7.2.686 Shaji as MATERNAL [phone] [facility] & [address] 2021-09-15 2021-09-15 Outpatient Russ NICOLE [facility] [id number] Univers 08:30:00 08:53:59 PINA ity o [facility] 2021-09-15 2021-09-15 Outpatient Russ NICOLE [facility] [id number] Univers 08:30:00 08:30:00 ROBLESNDA ity o [facility] 2021-09-09 2021-09-09 Out[facility] [id number] Univers 08:00:00 08:24:51 ROBLESNDCamille ity o [facility] 2021-09-09 2021-09-09 Deputy [employer] Attorney Lab, [facility] 1.2.840. 114 [id number] Univers 08:00:00 08:24:51 Visit Serina Nicolehoangdeepticamille R SENIOR RESEARCH FELLOW 350.1.13.10 ity of [facility] 4.2.7.2.686 Shaji as MATERNAL [phone] [facility] & CHILD [address] [place] [address] 2021-09-07 2021-09-07 Telephone [facility] 1.2.840.114 [id number] Univers 00:00:00 00:00:00 Carla Yang SENIOR RESEARCH FELLOW 350.1.13.10 ity of [facility] 4.2.7.2.686 Shaji as MATERNAL [phone] [facility] ical & CHILD [address] [place] [address] 2021-09-07 2021-09-07 Telephone LIZBETH Arenas 1.2.840.114 [id number] Univers 00:00:00 00:00:00 Hemalatha CHUNGY 350.1.13.[address] [facility] 4.2.7.2.686 Shaji as [phone] [address] 2021-09-03 2021-09-03 Refglen Val[facility]IPR[facility] 1.2.280.121 [id number] Univers 00:00:00 00:00:00 Carla Yang SENIOR RESEARCH FELLOW 350.1.13.10 ity of [facility] 4.2.7.2.686 Shaji as MATERNAL [phone] [address] 2021-09-01 2021-09-01 Outpatient Russ VALERIO [facility] [id number] Univers 10:30:00 10:40:53 CARLA grimm o [facility] 2021-09-01 2021-09-01 Deputy Commonwealth'S Attorney Lab, [facility] 1.2.840. 114 [id number] Univers 10:30:00 10:40:53 Visit Carla Valerio SENIOR RESEARCH FELLOW 350.1.13. 10 ity [facility] 4.2.7.2.686 Shaji as MATERNAL [phone] [address] 2021-08-25 2021-08-25 Outpatient R IMAN [facility] [id number] Univers 08:30:00 08:57:29 CARLA grimm o [facility] 2021-08-25 2021-08-25 Deputy Commonwealth'S Attorney Lab, [facility] 1.2.840. 114 [id number] Univers 08:30:00 08:57:29 Visit Carla Valerio SENIOR RESEARCH FELLOW 350.1.13. 10 ity of [facility] 4.2.7.2.686 Shaji as MATERNAL [phone] [facility] CHILD [address] [place] [address] 2021-08-18 2021-08-18 Outpatient Russ VALERIO [facility] [id number] Univers 08:30:00 09:38:35 CARLA yousif [facility] 2021-08-18 2021-08-18 Office [facility] 1.2.786.450 [id number] Univers 08:30:00 09:38:35 Visit Carla Celia SENIOR RESEARCH FELLOW 350.1.13.10 ity of REGIONAL 4.2.7.2.686 Shaji as MATERNAL [phone] [facility] & CHILD [address] [place] [address] 2021-08-18 2021-08-18 [facility]patient [facility] [id number] Univers 08:30:00 09:38:35 CARLA schwartz [facility] 2021-08-14 2021-08-14 Outpatient R NICOLE [facility] [id number] Univers 08:00:00 08:34:16 PINA schwartz [facility] 2021-08-14 2021-08-14 Deputy [employer]'S Attorney Lab, [facility] 1.2.840. 114 [id number] Univers 08:00:00 08:34:16 Visit Robles Nicolechristiane Solano SENIOR RESEARCH FELLOW 350.1.13.10 ity of REGIONAL 4.2.7.2.686 Shaji as MATERNAL [phone] [facility] & [address] 2021-08-14 2021-08-14 Outpatient R BONNIE [facility] [id number] Univers 08:00:00 08:34:16 PINA schwartz [facility] 2021-08-07 2021-08-07 Telephone Johanny Elder UN[facility]ERS[facility] 1.2.840.114 [id number] Univers 00:00:00 00:00:00 Y HEALTH 350.1.13.10 i ty of CL[place]ICS [place] [id number] [facility] [address] 2021-08-06 2021-08-06 Deputy Commonwealth'S Attorney [facility] UNIVERSIT 1.2.840.114 [id number] Univers 11:15:00 11:30:00 Visit Hailey Conrad Y HEALTH 350.1.13.10 ity of CLINICS [place].2.[place] [id number] [facility] [address] 2021-08-06 2021-08-06 Outpatient Russ CONRAD [facility] [id number] Univers 10:00:00 10:57:01 HAILEY [facility] 2021-08-06 2021-08-06 Routine Trimester, [facility] Res-1st UNIVERSIT 1.2.840.114 [id number] Univers 10:00:00 10:57:01 Hailey Conrad [facility] 350.1.13.10 ity of [facility] CLINICS 4.2.7.2.[place] [id number] [facility] [address] 2021-08-06 2021-08-06 Outpatient Russ CONRAD [facility] [id number] Univers 10:00:00 10:57:01 HAILEY [facility] 2021-07-30 2021-07-30 Refill [facility] 1.2.520.734 [id number] Univers 00:00:00 00:00:00 Carla Yang SENIOR RESEARCH FELLOW 350.1.13.10 ity [facility] 4.2.7.2.686 Shaji as MATERNAL [phone] Med ical & CHILD [address] [place] [address] 2021-07-29 2021-07-29 Outpatient Russ HUGHES [facility] [id number] Univers 13:00:00 13:00:00 THEO [facility] 2021-07-29 2021-07-29 [facility] 1.2.697.654 [id number] Univers 00:00:00 00:00:00 Carla Yang SENIOR RESEARCH FELLOW 350.1.13.10 ity [facility] 4.2.7.2.686 Shaji as MATERNAL [phone] Med ical & CHILD [address] [place] [address] 2021-07-28 2021-07-28 Telephone Johanny Elder 1.2.840.114 [id number] Univers 00:00:00 00:00:00 VADIM 350.1.13.10 it y of [facility] 4.2.7.2.686 Shaji as [id number] [facility] [address] 2021-07-27 2021-07-27 Telephone Iman [facility] 1.2.840.114 [id number] Univers 00:00:00 00:00:00 Carla Yang SENIOR RESEARCH FELLOW 350.1.13.10 ity of [address]686 Shaji as MATERNAL [phone] [facility] ical & CHILD [address] [place] [address] 2021-07-21 2021-07-21 Outpatient R [facility] SHOP FOREMAN [id number] Univers 11:12:00 17:03:00 MONTEZ ity [facility] 2021-07-21 2021-07-21 Outpatient R [facility] SHOP FOREMAN [id number] Univers 11:12:00 17:03:00 MONTEZ ity [facility] 2021-07-21 2021-07-21 Hospital BARRERA Rosales 1.2.560.954 [id number] Univers 11:12:00 17:03:00 Encounter Montez CHUNGY 350.1.13.10 ity of [place] [address].7.2.686 Shaji as [id number] [facility] [address] 2021-07-21 2021-07-21 Surgery BARRERA Rosales 1.2.840.114 [id number] Univers 13:12:00 14:43:00 Montez W VADIM 350.1.13.10 it y of [facility] 4.2.7.2.686 Shaji as [phone] [facility] [address] 2021-07-21 2021-07-21 Orders Doctor NIEVES 1.2.840.114 [id number] Univers 00:00:00 00:00:00 Only Unassigned, VADIM 350.1.13.10 ity of [place] [facility] 42.7.2.686 Shaji as [id number] [facility] [address] 2021-07-17 2021-07-17 Outpatient Russ SANTIAGO [facility] [id number] Univers 10:30:00 12:13:27 YADIEL grimm [facility] 2021-07-17 2021-07-17 Routine Trimester, [facility] Res-1st UNIVERSIT 1.2.840.114 [id number] Univers 10:30:00 12:13:27 Yadiel Santiago [facility] 350.1.13.10 ity of Visit CLINICS 4[place]2.7.2.[place] [id number] [facility] [address] 2021-07-17 2021-07-17 Orders Doctor LIZBETH 1.2.840.114 [id number] Univers 00:00:00 00:00:00 Only Unassigned, VADIM 350.1.13.10 ity of [place] [facility] 4.2.7.2.686 Shaji as [id number] [address] 2021-07-16 2021-07-16 Outpatient R [facility] [id number] Univers 13:45:00 14:20:59 DISHA michael [facility] 2021-07-16 2021-07-16 Routine Risk, Qyt-Jdwyh-Bn/High [facility] 1. 2.840.114 [id number] Univers 13:45:00 14:20:59 Disha Benavidezy SENIOR RESEARCH FELLOW 350.1.13.10 ity of Visit REGIONAL 4.2.7.2.686 Shaji as MATERNAL [phone] [facility] ical & CHILD [address] [place] [address] 2021-07-16 2021-07-16 Outpatient R [facility] [id number] Univers 13:45:00 14:20:59 DISHA grimm [facility] 2021-07-16 2021-07-16 Orders Doctor LIZBETH 1.2.840.114 [id number] Univers 00:00:00 00:00:00 Only Unassigned, VADIM 350.1.13.10 ity of [place] [facility] 4.2.7.2.686 Shaji as [id number] [address] 2021-07-13 2021-07-13 Outpatient [facility] [id number] Univers 15:45:00 15:45:00 THEO grimm [facility] 2021-07-13 2021-07-13 Outpatient [facility] [id number] Univers 15:45:00 15:45:00 THEO grimm [facility] 2021-07-10 2021-07-10 Outpatient P [facility] [id number] Univers 09:00:00 09:00:00 ity of [facility] 2021-07-10 2021-07-10 Outpatient P [facility] [id number] Univers 09:00:00 09:00:00 ity of [facility] 2021-07-10 2021-07-10 Outpatient P [facility] [id number] Univers 09:00:00 09:00:00 ity of [facility] 2021-07-10 2021-07-10 Outpatient P [facility] [id number] Univers 09:00:00 09:00:00 ity of [facility] 2021-07-09 2021-07-09 Outpatient [facility] [id number] Univers 10:15:00 11:08:48 NOAR [facility] 2021-07-09 2021-07-09 Routine Trimester, [facility] Res-1st UNIVERSIT 1.2.840.114 [id number] Univers 10:15:00 11:08:48 Amor [facility] 350.1.13 .10 ity of Visit CL[place]ICS [place] [id number] [address] 2021-07-09 2021-07-09 Routine Trimester, [facility] Res-1st UNIVERSIT 1.2.840.114 [id number] Univers 10:15:00 11:08:48 [facility] 350.1.13 .10 ity of Visit [phone] [address] 2021-07-09 2021-07-09 Outpatient R AMOR, [facility] [id number] Univers 10:15:00 10:15:00 [facility] 2021-07-09 2021-07-09 Telephone Risk, [facility] [id number] Univers 00:00:00 00:00:00 [facility] 350.1.13.10 ity of p/High REGIONAL 4.2.7.2.686 Shaji as MATERNAL [phone] Med ical & CHILD [address] [facility] 2021-07-09 2021-07-09 Rosette Nicole [facility] [id number] [id number] Univers 00:00:00 00:00:00 Pina R S[employer] FELLOW 350.1.13.10 ity of REGIONAL 4.2.7.2.686 Shaji as MATERNAL [phone] [facility] & CHILD [address] [place] [address] 2021-07-06 2021-07-06 Outpatient R IMAN, [facility] [id number] Univers 14:00:00 15:46:44 CARLA ity o [facility] 2021-07-06 2021-07-06 [facility]ine [facility] 1.2.322.308 [id number] Univers 14:00:00 15:46:44 Carla C SENIOR RESEARCH FELLOW 350.1.13.10 ity of Visit REGIONAL 4.2.7.2.686 Shaji as MATERNAL [phone] [address] 2021-07-06 2021-07-06 Routine Iman, [facility] 1.2.895.139 [id number] Univers 14:00:00 15:46:44 Carla C SENIOR RESEARCH FELLOW 350.1.13.10 ity of Visit REGIONAL 4.2.7.2.686 Shaji as MATERNAL [phone] [facility] & CHILD [address] [place] [address] 2021-07-06 2021-07-06 Outpatient R IMAN [facility] [id number] Univers 14:00:00 15:46:44 CARLA ity o [facility] 2021-07-06 2021-07-06 Telephone Pcp, [facility] 1.2.539.461 [id number] Univers 00:00:00 00:00:00 Patient SENIOR RESEARCH FELLOW 350.1.13.10 it y of Does Not [place].2.686 [place] A MATERNAL [id number] [facility] & CHILD [address] [place] [address] 2021-07-03 2021-07-03 Outpatient R IMAN, [facility] [id number] Univers 10:30:00 10:30:00 CARLA ity o f [facility] 2021-07-03 2021-07-03 Outpatient R IMAN [facility] [id number] Univers 10:30:00 10:30:00 CARLA ity o f [facility] 2021-07-02 2021-07-02 Outpatient R ELLEN [facility] [id number] Univers 14:15:00 14:15:00 THEO [facility] 2021-07-02 2021-07-02 Outpatient R ELLEN [facility] [id number] Univers 14:15:00 14:15:00 THEO [facility] 2021-07-02 2021-07-02 Office [facility] 1.2.840.114 [id number] Univers 14:15:00 14:15:00 Visit Theo [facility] 350.1.13.10 ity [facility] 4.2.7.2.686 [facility] [phone] [facility] PRIMARY & [facility] Branch SPECIALTY CARE 2021-07-02 2021-07-02 Outpatient Russ KATZ [facility] [id number] Univers 10:00:00 11:19:29 [place] [facility] 2021-07-02 2021-07-02 Routine Trimester, [facility] Res-1st [facility] 1.2.840.114 [id number] Univers 10:00:00 11:19:29 [place] [facility] 350.1.1 3.10 ity of Visit CLINICS 4.2.7.2.686 [facility] [id number] [place] [address] [place] 2021-07-02 2021-07-02 Outpatient Russ KATZ [facility] [id number] Univers 10:00:00 11:19:29 [place] [facility] 2021-07-02 2021-07-02 Routine Trimester, [facility] Res-1st UN[facility]ERSIT 1.2.840.114 [id number] Univers 10:00:00 11:19:29 [place] [facility] 350.1.1 3.10 ity of Visit CLINICS 4.2.7.2.686 [place] [id number] [facility] [address] [place] 2021-07-01 2021-07-01 Outpatient Russ NICOLE [facility] [id number] Univers 10:30:00 10:30:00 PINA ity o f [facility] 2021-07-01 2021-07-01 Telephone Pcp, [facility] 1.2.840.114 [id number] Univers 00:00:00 00:00:00 Patient Y HEALTH 350.1.13.10 i ty of [facility] 4.2.7.2.686 Shaji as Have A [id number] [facility] [address] [place] 2021-06-30 2021-06-30 Emergency X [facility] ERT [id number] Univers 16:11:00 18:22:00 [facility] 2021-06-30 2021-06-30 Emergency [facility] 1.2.004.706 [id number] Univers 16:11:00 18:22:00 Itz CHEN 350.1.13.10 i ty [place].2.[place] [id number] [facility] 0[address] [place] 2021-06-30 2021-06-30 Emergency X [facility] ERT [id number] Univers 16:11:00 18:22:00 ITZ [facility] 2021-06-29 2021-06-29 Office Faculty, Matty Wang [facility] 1.2 .840.114 [id number] Univers 14:00:00 14:14:10 Visit Matteo Harvey SENIOR RESEARCH FELLOW 350.1.13.10 ity of [facility] 4.2.7.2.686 Shaji as MATERNAL [phone] Med ical & CHILD [address] [place] [address] 2021-06-29 2021-06-29 Outpatient Russ HARVEY [facility] [id number] Univers 14:00:00 14:14:10 MATTEO [facility] 2021-06-29 2021-06-29 Outpatient Russ HARVEY [facility] [id number] Univers 14:00:00 14:00:00 [facility] 2021-06-17 2021-06-17 [facility] 1.2.700.002 [id number] Univers 00:00:00 00:00:00 Pina Solano SENIOR RESEARCH FELLOW 350.1.13.10 ity of [facility] 4.2.7.2.686 Shaji as MATERNAL [phone] [facility] & CHILD [address] [place] [address] 2021-06-15 2021-06-15 Outpatient R [facility] [id number] Univers 11:30:00 12:26:18 [facility] 2021-06-15 2021-06-15 Office Faculty, [facility] 1. .840.114 [id number] Univers 11:30:00 12:26:18 Visit Antonio Betancourt Renuka SENIOR RESEARCH FELLOW 350.1. 13.10 ity of [facility] 4.2.7.2.686 Shaji as MATERNAL [phone] [facility] & [address] 2021-06-15 2021-06-15 Outpatient R [facility] [id number] Univers 11:30:00 12:26:18 [facility] 2021-06-15 2021-06-15 Outpatient R [facility] [id number] Univers 11:30:00 11:30:00 [facility] 2021-06-15 2021-06-15 Outpatient R [facility] [id number] Univers 11:30:00 11:30:00 [facility] 2021-06-15 2021-06-15 Rosette [facility] 1.2.840.114 [id number] Univers 00:00:00 00:00:00 Leila SENIOR RESEARCH FELLOW 350.1.13.10 ity of [facility] 4.2.7.2.686 Shaji as MATERNAL [phone] [facility] & CHILD [address] [place] [address] 2021-06-11 2021-06-11 [facility] 1.2.529.581 [id number] Univers 00:00:00 00:00:00 José Miguela R SENIOR RESEARCH FELLOW 350.1.13.10 ity of REGIONAL 4.2.7.2.686 Shaji as MATERNAL [phone] [facility] & CHILD [address] [place] [address] 2021-06-10 2021-06-10 Deputy [employer], Ang-Rmchp [facility] 1.2.840. 114 [id number] Univers 08:15:00 08:43:18 Visit Carla Valerio SENIOR RESEARCH FELLOW 350.1.13. 10 ity of [place] Nicolemaria luisa Russ REGIONAL 4.2.7.2.686 [place] MATERNAL [id number] [facility] & CHILD [address] [place] [address] 2021-06-10 2021-06-10 Outpatient R BONNIE [facility] [id number] Univers 08:15:00 08:43:18 PINA grimm o [facility] 2021-06-10 2021-06-10 Outpatient R BONNIE [facility] [id number] Univers 08:15:00 08:15:00 PINA grimm o [facility] 2021-06-08 2021-06-08 Telephone [facility] 1.2.230.022 [id number] Univers 00:00:00 00:00:00 Robleschristiane Solano SENIOR RESEARCH FELLOW 350.1.13.10 ity of [facility] 4.2.7.2.686 Shaji as MATERNAL [phone] [facility] & CHILD [address] [place] [address] 2021-06-03 2021-06-03 Outpatient R BONNIE [facility] [id number] Univers 10:30:00 14:03:22 PINA grimm o nica [facility] 2021-06-03 2021-06-03 Office [facility] 1.2.840.114 [id number] Univers 10:30:00 14:03:22 Visit Robleschristiane Solano SENIOR RESEARCH FELLOW 350.1.13.10 ity of [facility] 4.2.7.2.686 Shaji as MATERNAL [id number] [facility] & CHILD [address] [place] [address] 2021-06-03 2021-06-03 [facility] [id number] Univers 10:30:00 14:03:22 PINA ity o [facility] 2021-06-03 2021-06-03 Orders Doctor LIZBETH 1.2.840.114 [id number] Univers 00:00:00 00:00:00 Only Unassigned, VADIM 350.1.13.10 ity of [place] [facility] 4.2.7.2.686 Shaji as [id number] [address] 2021-05-05 2021-05-05 Outpatient R AKINMECHELLEPE, [facility] [id number] Univers 09:45:00 09:45:00 CARLA ity o [facility] 2021-02-03 2021-02-03 Outpatient R IMAN, [facility] [id number] Univers 10:00:00 11:16:47 CARLA mejiay o [facility] 2021-02-03 2021-02-03 Office [facility] 1.2.273.315 [id number] Univers 10:00:00 11:16:47 Visit Carla Yang SENIOR RESEARCH FELLOW 350.1.13.10 ity of [facility] 4.2.7.2.686 Shaji as MATERNAL [phone] [facility] ical & CHILD [address] [place] [address] 2021-02-03 2021-02-03 Outpatient R IMAN, [facility] [id number] Univers 10:00:00 11:16:47 CARLA mejiay o [facility] 2021-02-03 2021-02-03 Outpatient R IMAN, [facility] [id number] Univers 10:00:00 11:16:47 CARLA ity o [facility] 2021-02-03 2021-02-03 Orders Doctor LIZBETH 1.2.840.114 [id number] Univers 00:00:00 00:00:00 Only Unassigned, VADIM 350.1.13.10 ity of [place] [facility] 4.2.7.2.686 Shaji as [id number] [address] 2021-01-22 2021-01-22 Telephone MartiantwonSHIPROCK[facility] 1.2.840.114 [id number] Univers 00:00:00 00:00:00 Carla C SENIOR RESEARCH FELLOW 350.1.13.10 ity of [facility] 4.2.7.2.686 Shaji as MATERNAL [phone] [facility] & CHILD [address] [place] [address] 2020-08-12 2020-08-12 Telephone MartiantwonSHIPROCK[facility] 1.2.840.114 [id number] Univers 00:00:00 00:00:00 Carla C SENIOR RESEARCH FELLOW 350.1.13.10 ity of [facility] 4.2.7.2.686 Shaji as MATERNAL [id number] [facility] & CHILD [address] [place] [address] 2020-05-05 2020-05-05 Office [facility] 1.2.710.599 [id number] Univers 09:04:38 09:53:52 Visit Carla Yang SENIOR RESEARCH FELLOW 350.1.13.10 ity of [facility] 4.2.7.2.686 Shaji as MATERNAL [phone] [facility] & [address] 2020-05-05 2020-05-05 Outpatient R IMAN [facility] [id number] [facility] 08:45:00 08:45:00 CARLA yousif [facility] 2020-05-05 2020-05-05 Orders Doctor LIZBETH 1.2.840.114 [id number] Univers 00:00:00 00:00:00 Only Unassigned, VADIM 350.1.13.10 ity of [place] [facility] 4.2.7.2.686 Shaji as [id number] [address] 2020-05-01 2020-05-01 Outpatient R IMAN [facility] [id number] [facility] 08:15:00 08:15:00 CARLA grimm o f [facility] Results Test Description Test Time Test Comments Results Result [facility] e Comments TOTAL BETA HCG 2021-12-02 BETA University of [facility]AY 04:45:56 HCG<2.39Non-preg [facility] female and [place] male patients: <5 mIU/mL12/01/2021 11:45 PM [facility] Gestational Age ?Range (mIU/mL) 1-10 ?Weeks ?[id number] Weeks ?04546-26633164- 22 Weeks ?3871-75177853-1 0 Weeks ?1531-031541 Biotin has been reported to cause a negative bias, interpret results relative to patient's use of biotin. TOTAL BETA HCG 2021-10-15 BETA University of [facility]AY 05:09:41 HCG<2.39Non-preg [facility] dical nant female and [place] male patients: <5 mIU/mL10/15/2021 12:09 AM [facility] Gestational Age ?Range (mIU/mL) 1-10 ?Weeks ?19-99417818-96 Weeks ?04898-40551607- 22 Weeks ?2692-39791525-9 0 Weeks ?1531-193830 Biotin has been reported to cause a negative bias, interpret results relative to patient's use of biotin. SARS-CoV-2 (COVID-19) by RT-PCR (HIGH RISK) 2020-10-22 00:00 :00 Test Item Value Reference Range Interpretation Comme nts SARS-CoV-2 INTERPRETATION (test code = 74569) NEGATIVE SOURCE (test code = 33279) NOT SPECIFIED SARS-CoV-2 (COVID-19) by RT-PCR (HIGH RISK)2020-10-22 00:00:00 Test Item Value Reference Range Interpretation Comments SARS-CoV-2 INTERPRETATION (test NEGATIVE code = 48787) SOURCE (test code = 80835) NOT SPECIFIED SARS-CoV-2 (COVID-19) by RT-PCR (HIGH RISK)2020-10-22 00:00:00 Test Item Value Reference Range Interpretation Comments SARS-CoV-2 INTERPRETATION (test NEGATIVE code = 67339) SOURCE (test code = 49689) NOT SPECIFIED SARS-CoV-2 (COVID-19) by RT-PCR (HIGH RISK)2020-10-22 00:00:00 Test Item Value Reference Range Interpretation Comments SARS-CoV-2 INTERPRETATION (test NEGATIVE code = 61014) SOURCE (test code = 95902) NOT SPECIFIED SARS-CoV-2 (COVID-19) by RT-PCR (HIGH RISK)2020-10-22 00:00:00 Test Item Value Reference Range Interpretation Comments SARS-CoV-2 INTERPRETATION (test NEGATIVE code = 29655) SOURCE (test code = 33944) NOT SPECIFIED CBC W/AUTO [id number] 00:00:00 Test Item Value Reference Range Interpretation [...] NUCLEATED RBCS (test code = 0.00 K/UL 93677) CBC W/AUTO [id number] 00:00:00 Test Item Value Reference Range Interpretation [...] NUCLEATED RBCS (test code = 0.00 K/UL 11391) CBC W/AUTO [id number] 00:00:00 Test Item Value Reference Range Interpretation [...] NUCLEATED RBCS (test code = 0.00 K/UL 19070) MICROALBUMIN/CREATININE, RANDOM AND [id number] 00:00:00 Test Item Value Reference Range Interpretation Comments CREATININE, URINE, CONC. (test 29.1 MG/DL code = 2072) ALBUMIN, URINE, RANDOM (test code <0.2 MG/DL = 92498) CALC ALBUMIN/CREAT, RND (test code <7 MG/G = 80241) MICROALBUMIN/CREATININE, RANDOM AND [id number] 00:00:00 Test Item Value Reference Range Interpretation Comments CREATININE, URINE, CONC. (test 29.1 MG/DL code = 2072) ALBUMIN, URINE, RANDOM (test code <0.2 MG/DL = 35576) CALC ALBUMIN/CREAT, RND (test code <7 MG/G = 15030) HEMOGLOBIN [id number] 00:00:00 Test Item Value Reference Range Interpretation Comments HEMOGLOBIN A1c (test code = 87165) 14.0 % HEMOGLOBIN [id number] 00:00:00 Test Item Value Reference Range Interpretation Comments HEMOGLOBIN A1c (test code = 92129) 14.0 % HEMOGLOBIN [id number] 00:00:00 Test Item Value Reference Range Interpretation Comments HEMOGLOBIN A1c (test code = 58188) 14.0 % COMPREHENSIVE METABOLIC [id number] 00:00:00 Test Item Value Reference Range Interpretation Comments GLUCOSE (test code = 2217) 428 MG/DL BUN (test code = 2208) 7 MG/DL CREATININE (test code = 2214) 0.60 MG/DL eGFR AMER. (test code 132 ML/MIN/1.73 = 75784) eGFR NON- AMER. (test 114 ML/MIN/1.73 code = 10048) CALC BUN/CREAT (test code = 12 RATIO [...] code = 2219) 16 U/L COMPREHENSIVE METABOLIC [id number] 00:00:00 Test Item Value Reference Range Interpretation Comments GLUCOSE (test code = 2217) 428 MG/DL BUN (test code = 2208) 7 MG/DL CREATININE (test code = 2214) 0.60 MG/DL eGFR AMER. (test code 132 ML/MIN/1.73 = 02275) eGFR NON- AMER. (test 114 ML/MIN/1.73 code = 58490) CALC BUN/CREAT (test code = 12 RATIO [...] code = 2219) 16 U/L CBC W/AUTO [id number] 00:00:00 Test Item Value Reference Range Interpretation [...] NUCLEATED RBCS (test code = 0.00 K/UL 00551) CBC W/AUTO [id number] 00:00:00 Test Item Value Reference Range Interpretation [...] NUCLEATED RBCS (test code = 0.00 K/UL 47799) CBC W/AUTO [id number] 00:00:00 Test Item Value Reference Range Interpretation [...] NUCLEATED RBCS (test code = 0.00 K/UL 49720) MICROALBUMIN/CREATININE, RANDOM AND [id number] 00:00:00 Test Item Value Reference Range Interpretation Comments CREATININE, URINE, CONC. (test 29.1 MG/DL code = 2) ALBUMIN, URINE, RANDOM (test code <0.2 MG/DL = 58305) CALC ALBUMIN/CREAT, RND (test code <7 MG/G = 51892) MICROALBUMIN/CREATININE, RANDOM AND [id number] 00:00:00 Test Item Value Reference Range Interpretation Comments CREATININE, URINE, CONC. (test 29.1 MG/DL code = 2072) ALBUMIN, URINE, RANDOM (test code <0.2 MG/DL = 85186) CALC ALBUMIN/CREAT, RND (test code <7 MG/G = 45817) HEMOGLOBIN [id number] 00:00:00 Test Item Value Reference Range Interpretation Comments HEMOGLOBIN A1c (test code = 60377) 14.0 % HEMOGLOBIN [id number] 00:00:00 Test Item Value Reference Range Interpretation Comments HEMOGLOBIN A1c (test code = 53547) 14.0 % COMPREHENSIVE METABOLIC [id number] 00:00:00 Test Item Value Reference Range Interpretation Comments GLUCOSE (test code = 2217) 428 MG/DL BUN (test code = 2208) 7 MG/DL CREATININE (test code = 2214) 0.60 MG/DL eGFR AMER. (test code 132 ML/MIN/1.73 = 96268) eGFR NON- AMER. (test 114 ML/MIN/1.73 code = 69848) CALC BUN/CREAT (test code = 12 RATIO [...] code = 2219) 16 U/L CBC W/AUTO [id number] 00:00:00 Test Item Value Reference Range Interpretation [...] NUCLEATED RBCS (test code = 0.00 K/UL 88988) CBC W/AUTO [id number] 00:00:00 Test Item Value Reference Range Interpretation [...] NUCLEATED RBCS (test code = 0.00 K/UL 25100) MICROALBUMIN/CREATININE, RANDOM AND [id number] 00:00:00 Test Item Value Reference Range Interpretation Comments CREATININE, URINE, CONC. (test 29.1 MG/DL code = 2072) ALBUMIN, URINE, RANDOM (test code <0.2 MG/DL = 00865) CALC ALBUMIN/CREAT, RND (test code <7 MG/G = 42363) HEMOGLOBIN [id number] 00:00:00 Test Item Value Reference Range Interpretation Comments HEMOGLOBIN A1c (test code = 98890) 14.0 % HEMOGLOBIN [id number] 00:00:00 Test Item Value Reference Range Interpretation Comments HEMOGLOBIN A1c (test code = 14871) 14.0 % HEMOGLOBIN [id number] 00:00:00 Test Item Value Reference Range Interpretation Comments HEMOGLOBIN A1c (test code = 57194) 14.0 % COMPREHENSIVE METABOLIC [id number] 00:00:00 Test Item Value Reference Range Interpretation Comments GLUCOSE (test code = 2217) 428 MG/DL BUN (test code = 2208) 7 MG/DL CREATININE (test code = 2214) 0.60 MG/DL eGFR AMER. (test code 132 ML/MIN/1.73 = 32072) eGFR NON- AMER. (test 114 ML/MIN/1.73 code = 19619) CALC BUN/CREAT (test code = 12 RATIO 2235) SODIUM (test code = 2231) 138 MEQ/L POTASSIUM (test code = 2228) 4.3 MEQ/L CHLORIDE (test code = 2215) 100 MEQ/L CARBON DIOXIDE (test code = 24 MEQ/L 2206) CALCIUM (test code = 2209) 8.9 MG/DL PROTEIN, TOTAL (test code = 7.0 G/DL 222) ALBUMIN (test code = 2201) 3.7 G/DL CALC GLOBULIN (test code = 3.3 G/DL 2240) CALC A/G RATIO (test code = 1.1 RATIO 2234) BILIRUBIN, TOTAL (test code = <0.2 MG/DL 220) ALKALINE PHOSPHATASE (test 137 U/L code = 2204) AST (test code = 2218) 23 U/L ALT (test code = 2219) 16 U/L COMPREHENSIVE METABOLIC [id number] 00:00:00 Test Item Value Reference Range Interpretation Comments GLUCOSE (test code = 2217) 428 MG/DL BUN (test code = 2208) 7 MG/DL CREATININE (test code = 2214) 0.60 MG/DL eGFR AMER. (test code 132 ML/MIN/1.73 = 31958) eGFR NON- AMER. (test 114 ML/MIN/1.73 code = 45617) CALC BUN/CREAT (test code = 12 RATIO [...] ALT (test code = 2219) 16 U/L SARS-CoV-2 (COVID-19) by RT-PCR (HIGH RISK)2020-05-06 00:00:00 Test Item Value Reference Range Interpretation Comments SARS-CoV-2 INTERPRETATION (test NEGATIVE code = 98876) SOURCE (test code = 78264) NOT SPECIFIED SARS-CoV-2 (COVID-19) by RT-PCR (HIGH RISK)2020-05-06 00:00:00 Test Item Value Reference Range Interpretation Comments SARS-CoV-2 INTERPRETATION (test NEGATIVE code = 04206) SOURCE (test code = 58267) NOT SPECIFIED SARS-CoV-2 (COVID-19) by RT-PCR (HIGH RISK)2020-05-06 00:00:00 Test Item Value Reference Range Interpretation Comments SARS-CoV-2 INTERPRETATION (test NEGATIVE code = 91634) SOURCE (test code = 53486) NOT SPECIFIED SARS-CoV-2 (COVID-19) by RT-PCR (HIGH RISK)2020-05-06 00:00:00 Test Item Value Reference Range Interpretation Comments SARS-CoV-2 INTERPRETATION (test NEGATIVE code = 96726) SOURCE (test code = 36148) NOT SPECIFIED SARS-CoV-2 (COVID-19) by RT-PCR (HIGH RISK)2020-05-06 00:00:00 Test Item Value Reference Range Interpretation Comments SARS-CoV-2 INTERPRETATION (test NEGATIVE code = 21858) SOURCE (test code = 03940) NOT SPECIFIED HEMOGLOBIN [id number] 00:00:00 Test Item Value Reference Range Interpretation Comments HEMOGLOBIN A1c (test code = 31550) 13.1 % HEMOGLOBIN [id number] 00:00:00 Test Item Value Reference Range Interpretation Comments HEMOGLOBIN A1c (test code = 91485) 13.1 % HEMOGLOBIN [id number] 00:00:00 Test Item Value Reference Range Interpretation Comments HEMOGLOBIN A1c (test code = 48284) 13.1 % HEMOGLOBIN [id number] 00:00:00 Test Item Value Reference Range Interpretation Comments HEMOGLOBIN A1c (test code = 46252) 13.1 % HEMOGLOBIN [id number] 00:00:00 Test Item Value Reference Range Interpretation Comments HEMOGLOBIN A1c (test code = 10726) 13.1 % HEMOGLOBIN [id number] 00:00:00 Test Item Value Reference Range Interpretation Comments HEMOGLOBIN A1c (test code = 74985) 13.1 % HEMOGLOBIN [id number] 00:00:00 Test Item Value Reference Range Interpretation Comments HEMOGLOBIN A1c (test code = 23829) 13.1 % HEMOGLOBIN [id number] 00:00:00 Test Item Value Reference Range Interpretation Comments HEMOGLOBIN A1c (test code = 46632) 13.1 % LIPID [id number] 00:00:00 Test Item Value Reference Range Interpretation Comments CHOLESTEROL (test code = 2210) 200 MG/DL TRIGLYCERIDES (test code = 2232) 264 MG/DL HDL CHOLESTEROL (test code = 2220) 49 MG/DL CALC LDL CHOL (test code = 2237) 98 MG/DL RISK RATIO LDL/HDL (test code = 2.00 RATIO 2238) CBC W/AUTO [id number] 00:00:00 Test Item Value Reference Range Interpretation [...] code = 1015) 316 K/UL CBC W/AUTO [id number] 00:00:00 Test Item Value Reference Range Interpretation [...] code = 1015) 316 K/UL CBC W/AUTO [id number] 00:00:00 Test Item Value Reference Range Interpretation [...] COUNT (test code = 1015) 316 K/UL [id number] 00:00:00 Test Item Value Reference Range Interpretation Comments TSH (test code = 2821) 2.300 UIU/ML [id number] 00:00:00 Test Item Value Reference Range Interpretation Comments TSH (test code = 2821) 2.300 UIU/ML [id number] 00:00:00 Test Item Value Reference Range Interpretation Comments TSH (test code = 2821) 2.300 UIU/ML MICROALBUMIN/CREATININE, RANDOM AND [id number] 00:00:00 Test Item Value Reference Range Interpretation Comments CREATININE, URINE, CONC. (test 37.7 MG/DL code = 2072) MICROALBUMIN, RANDOM (test code = <0.2 MG/DL 98051) CALC MICROALB/CREAT RND (test code <5 MG/G = 94143) MICROALBUMIN/CREATININE, RANDOM AND [id number] 00:00:00 Test Item Value Reference Range Interpretation Comments CREATININE, URINE, CONC. (test 37.7 MG/DL code = 2072) MICROALBUMIN, RANDOM (test code = <0.2 MG/DL 51713) CALC MICROALB/CREAT RND (test code <5 MG/G = 57712) COMPREHENSIVE METABOLIC [id number] 00:00:00 Test Item Value Reference Range Interpretation Comments GLUCOSE (test code = 2217) 340 MG/DL BUN (test code = 2208) 9 MG/DL CREATININE (test code = 2214) 0.58 MG/DL eGFR AMER. (test code 137 ML/MIN/1.73 = 33265) eGFR NON- AMER. (test 119 ML/MIN/1.73 code = 33317) CALC BUN/CREAT (test code = 16 RATIO [...] code = 2219) 19 U/L COMPREHENSIVE METABOLIC [id number] 00:00:00 Test Item Value Reference Range Interpretation Comments GLUCOSE (test code = 2217) 340 MG/DL BUN (test code = 2208) 9 MG/DL CREATININE (test code = 2214) 0.58 MG/DL eGFR AMER. (test code 137 ML/MIN/1.73 = 26326) eGFR NON- AMER. (test 119 ML/MIN/1.73 code = 01918) CALC BUN/CREAT (test code = 16 RATIO [...] BILIRUBIN, TOTAL (test code = 0.1 MG/DL 2207) ALKALINE PHOSPHATASE (test 128 U/L code = 2204) AST (test code = 2218) 19 U/L ALT (test code = 2219) 19 U/L LIPID [id number] 00:00:00 Test Item Value Reference Range Interpretation Comments CHOLESTEROL (test code = 2210) 200 MG/DL TRIGLYCERIDES (test code = 2232) 264 MG/DL HDL CHOLESTEROL (test code = 2220) 49 MG/DL CALC LDL CHOL (test code = 2237) 98 MG/DL RISK RATIO LDL/HDL (test code = 2.00 RATIO 2238) LIPID [id number] 00:00:00 Test Item Value Reference Range Interpretation Comments CHOLESTEROL (test code = 2210) 200 MG/DL TRIGLYCERIDES (test code = 2232) 264 MG/DL HDL CHOLESTEROL (test code = 2220) 49 MG/DL CALC LDL CHOL (test code = 2237) 98 MG/DL RISK RATIO LDL/HDL (test code = 2.00 RATIO 2238) CBC W/AUTO [id number] 00:00:00 Test Item Value Reference Range Interpretation [...] code = 1015) 316 K/UL CBC W/AUTO [id number] 00:00:00 Test Item Value Reference Range Interpretation [...] code = 1015) 316 K/UL CBC W/AUTO [id number] 00:00:00 Test Item Value Reference Range Interpretation [...] COUNT (test code = 1015) 316 K/UL [id number] 00:00:00 Test Item Value Reference Range Interpretation Comments TSH (test code = 2821) 2.300 UIU/ML [id number] 00:00:00 Test Item Value Reference Range Interpretation Comments TSH (test code = 2821) 2.300 UIU/ML [id number] 00:00:00 Test Item Value Reference Range Interpretation Comments TSH (test code = 2821) 2.300 UIU/ML MICROALBUMIN/CREATININE, RANDOM AND [id number] 00:00:00 Test Item Value Reference Range Interpretation Comments CREATININE, URINE, CONC. (test 37.7 MG/DL code = 2072) MICROALBUMIN, RANDOM (test code = <0.2 MG/DL 05838) CALC MICROALB/CREAT RND (test code <5 MG/G = 04610) MICROALBUMIN/CREATININE, RANDOM AND [id number] 00:00:00 Test Item Value Reference Range Interpretation Comments CREATININE, URINE, CONC. (test 37.7 MG/DL code = 2071) MICROALBUMIN, RANDOM (test code = <0.2 MG/DL 19661) CALC MICROALB/CREAT RND (test code <5 MG/G = 14260) COMPREHENSIVE METABOLIC [id number] 00:00:00 Test Item Value Reference Range Interpretation Comments GLUCOSE (test code = 2217) 340 MG/DL BUN (test code = 2208) 9 MG/DL CREATININE (test code = 2214) 0.58 MG/DL eGFR AMER. (test code 137 ML/MIN/1.73 = 42111) eGFR NON- AMER. (test 119 ML/MIN/1.73 code = 40430) CALC BUN/CREAT (test code = 16 RATIO [...] (test code = 2219) 19 U/L LIPID [id number] 00:00:00 Test Item Value Reference Range Interpretation Comments CHOLESTEROL (test code = 2210) 200 MG/DL TRIGLYCERIDES (test code = 2232) 264 MG/DL HDL CHOLESTEROL (test code = 2220) 49 MG/DL CALC LDL CHOL (test code = 2237) 98 MG/DL RISK RATIO LDL/HDL (test code = 2.00 RATIO 2238) CBC W/AUTO [id number] 00:00:00 Test Item Value Reference Range Interpretation [...] code = 1015) 316 K/UL CBC W/AUTO [id number] 00:00:00 Test Item Value Reference Range Interpretation [...] COUNT (test code = 1015) 316 K/UL [id number] 00:00:00 Test Item Value Reference Range Interpretation Comments TSH (test code = 2821) 2.300 UIU/ML [id number] 00:00:00 Test Item Value Reference Range Interpretation Comments TSH (test code = 2821) 2.300 UIU/ML MICROALBUMIN/CREATININE, RANDOM AND [id number] 00:00:00 Test Item Value Reference Range Interpretation Comments CREATININE, URINE, CONC. (test 37.7 MG/DL code = 2072) MICROALBUMIN, RANDOM (test code = <0.2 MG/DL 88353) CALC MICROALB/CREAT RND (test code <5 MG/G = 77590) COMPREHENSIVE METABOLIC [id number] 00:00:00 Test Item Value Reference Range Interpretation Comments GLUCOSE (test code = 2217) 340 MG/DL BUN (test code = 2208) 9 MG/DL CREATININE (test code = 2214) 0.58 MG/DL eGFR AMER. (test code 137 ML/MIN/1.73 = 89682) eGFR NON- AMER. (test 119 ML/MIN/1.73 code = 29141) CALC BUN/CREAT (test code = 16 RATIO 2235) SODIUM (test code = 2231) 139 MEQ/L POTASSIUM (test code = 2228) 3.9 MEQ/L CHLORIDE (test code = 2215) 99 MEQ/L CARBON DIOXIDE (test code = 26 MEQ/L 220) CALCIUM (test code = 2209) 9.0 MG/DL PROTEIN, TOTAL (test code = 7.0 G/DL 222) ALBUMIN (test code = 2201) 3.8 G/DL CALC GLOBULIN (test code = 3.2 G/DL 2240) CALC A/G RATIO (test code = 1.2 RATIO 2234) BILIRUBIN, TOTAL (test code = 0.1 MG/DL 220) ALKALINE PHOSPHATASE (test 128 U/L code = 2204) AST (test code = 2218) 19 U/L ALT (test code = 2219) 19 U/L COMPREHENSIVE METABOLIC [id number] 00:00:00 Test Item Value Reference Range Interpretation Comments GLUCOSE (test code = 2217) 340 MG/DL BUN (test code = 2208) 9 MG/DL CREATININE (test code = 2214) 0.58 MG/DL eGFR AMER. (test code 137 ML/MIN/1.73 = 99137) eGFR NON- AMER. (test 119 ML/MIN/1.73 code = 69496) CALC BUN/CREAT (test code = 16 RATIO [...] (test code = 2219) 19 U/L LIPID [id number] 00:00:00 Test Item Value Reference Range Interpretation Comments CHOLESTEROL (test code = 2210) 200 MG/DL TRIGLYCERIDES (test code = 2232) 264 MG/DL HDL CHOLESTEROL (test code = 2220) 49 MG/DL CALC LDL CHOL (test code = 2237) 98 MG/DL RISK RATIO LDL/HDL (test code = 2.00 RATIO 2238)
--- NOTE | 2022-03-20 20:50 | RAD REPORT ---
EXAM DESCRIPTION: Cory Single View03/20/2022 8:15 pm CLINICAL HISTORY: Chest pain COMPARISON: December 2021 FINDINGS: The lungs appear clear of acute infiltrate. The heart is normal size IMPRESSION: No acute abnormalities displayed
[2022-03-20 21:00] LABS: Absolute Lymphocytes (CBC) 2.6 K/uL (0.7-4.9); MCV 64.4 fL (80-100); MPV 8.5 fL (7.6-11.3); RBC Red Blood Cell Count 5.74 M/uL (3.86-4.86)
[2022-03-20] MEDS ORDERED: ASPIRIN 81 MG CHEWABLE TABLET ONE (21:00)
[2022-03-20 21:25] LABS: Magnesium 2.3 mg/dL (1.6-2.4); Potassium 3.7 mmol/L (3.5-5.1); Troponin High Sensitivity 4.4 pg/mL (<58.9)
[2022-03-20 21:47] LABS: Blood Morphology Comment NOTED (NOT SEEN); Platelet Estimate ADEQ; Platelets, Giant NOTED; White Blood Cell Scan OK (OK)
[2022-03-20 21:48] LABS: Hypochromasia 1+
--- NOTE | 2022-03-20 22:12 | EDPHYS ---
Physician Documentation [facility] Name: Ro Peterson Age: 41 yrs Sex: Female : 1980 Arrival Date: 03/20/2022 Time: 19:36 Bed 16 Private MD: ED Physician Olvin Wetzel HPI: 03/20 20:29 This 41 yrs old Female presents to ER via Ambulatory with complaints of ms3 Covid+, Flank Pain, Ear Pain, Chest Pain. 20:29 41-year-old female with past medical history of diabetes, hypertension, hyperlipidemia ms3 presents after testing positive for COVID this morning from [facility]. Patient states she began feeling bad on night with a body aches. Patient states today she developed some sharp chest pain that began at 1 PM. Patient rates the pain a 2/10 at this time. Patient states when the pain is his worst she rates it a 7/10. Patient endorses nausea. Patient denies vomiting, diarrhea. Patient notes her whole house has COVID at this time.. Historical: - Allergies: 19:51 No Known Allergies; ll3 - PMHx: 19:51 diabetes mellitus; High Cholesterol; Hypertension; ll3 - PSHx: 19:51 section; D\T\C; ll3 - Immunization history:: Client reports having NOT received the Covid vaccine. - Social history:: Smoking status: Patient denies any tobacco usage or history of. ROS: 20:29 Neck: Negative for injury, pain, and swelling. ms3 20:29 Abdomen/GI: Negative for abdominal pain, nausea, vomiting, diarrhea, and constipation, MS/Extremity: Negative for injury and deformity, Skin: Negative for injury, rash, and discoloration. 20:29 Constitutional: Positive for body aches, chills. 20:29 Cardiovascular: Positive for chest pain. 20:29 All other systems are negative. Exam: 20:03 ECG was reviewed by the Attending Physician. ms3 20:29 Constitutional: This is a well developed, well nourished patient who is awake, alert, ms3 and in no acute distress. Head/Face: Normocephalic, atraumatic. Neck: Trachea midline, no cervical lymphadenopathy. Supple, full range of motion without nuchal rigidity, or vertebral point tenderness. No Meningismus. Chest/axilla: Normal chest wall appearance and motion. Nontender with no deformity. Cardiovascular: Regular rate and rhythm with a normal S1 and S2. No gallops, murmurs, or rubs. Normal PMI, no JVD. No pulse deficits. Respiratory: Lungs have equal breath sounds bilaterally, clear to auscultation and percussion. No rales, rhonchi or wheezes noted. No increased work of breathing, no retractions or nasal flaring. Abdomen/GI: Soft, non-tender, with normal bowel sounds. No distension or tympany. No guarding or rebound. No evidence of tenderness throughout. Skin: Warm, dry with normal turgor. Normal color with no rashes, no lesions, and no evidence of cellulitis. MS/ Extremity: Pulses equal, no cyanosis. Neurovascular intact. Full, normal range of motion. Vital Signs: 19:48 BP 128 / 72; Pulse 87; Resp 16; Temp 98.9(O); Pulse Ox 97% on R/A; Weight 86.64 kg (R); ll3 Height 4 ft. 11 in. (149.86 cm) (R); Pain 2/10; 21:03 BP 125 / 79; Pulse 90; Resp 16; Temp 98.8; Pulse Ox 97% ; ke1 22:26 BP 129 / 71; Pulse 87; Resp 18; Temp 98.8; Pulse Ox 100% on R/A; Pain 0/10; ke1 19:48 Body Mass Index 38.58 (86.64 kg, 149.86 cm) ll3 MDM: 19:43 Patient medically screened. ms3 20:29 Differential diagnosis: COVID vs ACS vs PE. ms3 22:12 Data reviewed: vital signs, nurses notes, lab test result(s), EKG, radiologic studies, ms3 and as a result, I will discharge patient. 22:12 Consideration of Admission/Observation Escalation of care including ms3 admission/observation considered. Observation considered; however, patient's troponin negative. HEART score 2.. I considered the following discharge prescriptions or medication management in the emergency department Medications were administered in the Emergency Department. See MAR. Independent interpretation of the following test(s) in the Emergency Department EKG: See my EKG interpretation above ekg monitor tech: rate is 83 beats/min, Rhythm is normal sinus rhythm, regular, with no ectopy, Interpretation: normal rate, normal rhythm. Test considered but Not performed: CT: D dimer negative. Care significantly affected by the following chronic conditions: Diabetes, Hypertension, HLD. Counseling: I had a detailed discussion with the patient and/or guardian regarding: the historical points, exam findings, and any diagnostic results supporting the discharge/admit diagnosis, lab results, radiology results, the need for outpatient follow up, to return to the emergency department if symptoms worsen or persist or if there are any questions or concerns that arise at home. ED course: Discussed labs, chest x-ray, EKG with patient and her . Patient to follow-up with her primary care physician in 2 to 3 days. Patient understands and agrees with plan. All questions were answered. Return precautions discussed include worsening symptoms, or any other concerns.. 03/20 19:43 Order name: Basic Metabolic Panel; Complete Time: 21:50 ms3 03/20 19:43 Order name: CBC with Diff; Complete Time: 21:50 ms3 03/20 19:43 Order name: D-Dimer; Complete Time: 21:19 ms3 03/20 19:43 Order name: Magnesium; Complete Time: 21:50 ms3 03/20 19:43 Order name: Troponin HS; Complete Time: 21:50 ms3 03/20 21:03 Order name: CBC Smear Scan; Complete Time: 21:50 EDMS 03/20 19:43 Order name: XRAY Chest (1 view); Complete Time: 21:19 ms3 03/20 19:43 Order name: EKG; Complete Time: 19:44 ms3 03/20 19:43 Order name: Cardiac monitoring; Complete Time: 21:02 ms3 03/20 19:43 Order name: EKG - Nurse/Tech; Complete Time: 20:29 ms3 03/20 19:43 Order name: IV Saline Lock; Complete Time: 20:29 ms3 03/20 19:43 Order name: Labs collected and sent; Complete Time: 20:29 ms3 03/20 19:43 Order name: O2 Per Protocol; Complete Time: 21:02 ms3 03/20 19:43 Order name: O2 Sat Monitoring; Complete Time: 21:02 ms3 EC:03 Rate is 91 beats/min. Rhythm is regular. Right axis deviation noted. VA interval is ms3 normal. QRS interval is normal. Clinical impression: NSR w/ Non-specific ST/T Changes and RBBB. Interpreted by me. Reviewed by me. Administered Medications: 21:02 Drug: Aspirin Chewable Tablet 324 mg Route: PO; ke1 Disposition Summary: 03/20/22 22:12 Discharge Ordered Location: Home ms3 Condition: Stable ms3 Diagnosis - SARS-associated coronavirus as the cause of diseases classified elsewhere ms3 - Chest pain, unspecified ms3 - Myalgia ms3 - Shortness of breath ms3 Followup: ms3 - With: Lan Perry DO - When: 2 - 3 days - Reason: Recheck today's complaints Discharge Instructions: - Discharge Summary Sheet ms3 - Nonspecific Chest Pain, Adult ms3 - Shortness of Breath, Adult ms3 - COVID-19 ms3 - Things to Know about the COVID-19 Pandemic - [facility] ms3 - 10 Things You Can Do to Manage Your COVID-19 Symptoms at Home - [facility] ms3 Forms: - Medication Reconciliation Form ms3 - Thank You Letter ms3 - Antibiotic Education ms3 - Prescription Opioid Use ms3 Signatures: Dispatcher [employer] EDMS Olvin Wetzel DO DO ms3 Uche Parra, RN RN ll3 Bia Watson, RN RN ke1
--- NOTE | 2022-03-20 22:12 | ER ---
Nurse's Notes [facility] Name: Ro Peterson Age: 41 yrs Sex: Female : 1980 Arrival Date: 03/20/2022 Time: 19:36 Bed 16 Private MD: Diagnosis: SARS-associated coronavirus as the cause of diseases classified elsewhere;Chest pain, unspecified;Myalgia;Shortness of breath Presentation: 03/20 19:48 Chief complaint: Patient states: States tested positive for Covid, c/o bilateral ear ll3 pain, body aches, and chest pain. Coronavirus screen: Vaccine status: Patient reports receiving the 2nd dose of the covid vaccine. congestion, muscle pain, nausea. Coronavirus screen: Client presents with at least one sign or symptom that may indicate coronavirus-19. Standard/surgical mask placed on the client. Provider contacted for isolation considerations. Ebola Screen: No symptoms or risks identified at this time. Initial Sepsis Screen: Does the patient meet any 2 criteria? No. Patient's initial sepsis screen is negative. Does the patient have a suspected source of infection? No. Patient's initial sepsis screen is negative. Risk Assessment: Do you want to hurt yourself or someone else? Patient reports no desire to harm self or others. Onset of symptoms was February 2022. Care prior to arrival: Medication(s) given: Tylenol, 1000 mg. 19:48 Method Of Arrival: Ambulatory ll3 19:48 Acuity: PAVEL 2 ll3 Triage Assessment: 21:00 General: Behavior is calm, appropriate for age. ke1 21:05 General: Appears in no apparent distress. Pain: Denies pain. Pain: Complains of pain in ke1 ear and flank Pain currently is 3 out of 10 on a pain scale. at worst was 6 out of 10 on a pain scale. level that patient reports is acceptable is 5 out of 10 on a pain scale. EENT: Reports. Historical: - Allergies: 19:51 No Known Allergies; ll3 - PMHx: 19:51 diabetes mellitus; High Cholesterol; Hypertension; ll3 - PSHx: 19:51 section; D\T\C; ll3 - Immunization history:: Client reports having NOT received the Covid vaccine. - Social history:: Smoking status: Patient denies any tobacco usage or history of. Screenin:04 [facility] ED Fall Risk Assessment (Adult) History of falling in the last 3 months, ke1 including since admission No falls in past 3 months (0 pts) Confusion or Disorientation No (0 pts) Intoxicated or Sedated No (0 pts) Impaired Gait No (0 pts) Mobility Assist Device Used No (0 pt) Altered Elimination No (0 pt) Score/Fall Risk Level 0 - 2 = Low Risk. Abuse screen: Denies threats or abuse. Nutritional screening: No deficits noted. Tuberculosis screening: No symptoms or risk factors identified. Assessment: 21:04 Reassessment: Patient is alert, oriented x 3, equal unlabored respirations, skin ke1 warm/dry/pink. Patient denies pain at this time. 22:26 Reassessment: Patient denies pain at this time. Reassessment: Patient states feeling ke1 better. Patient states symptoms have improved. Vital Signs: 19:48 BP 128 / 72; Pulse 87; Resp 16; Temp 98.9(O); Pulse Ox 97% on R/A; Weight 86.64 kg (R); ll3 Height 4 ft. 11 in. (149.86 cm) (R); Pain 2/10; 21:03 BP 125 / 79; Pulse 90; Resp 16; Temp 98.8; Pulse Ox 97% ; ke1 22:26 BP 129 / 71; Pulse 87; Resp 18; Temp 98.8; Pulse Ox 100% on R/A; Pain 0/10; ke1 19:48 Body Mass Index 38.58 (86.64 kg, 149.86 cm) ll3 ED Course: 19:36 Patient arrived in ED. ja2 19:38 Olvin Wetzel DO is Attending Physician. ms3 19:51 Triage completed. ll3 19:51 Arm band placed on right wrist. ll3 20:17 XRAY Chest (1 view) In Process Unspecified. EDMS 20:28 Inserted saline lock: 20 gauge in left antecubital area, using aseptic technique. Blood ed2 collected. 20:29 EKG done, by ED staff, reviewed by Olvin Wetzel DO. ed2 20:55 Bia Watson, RN is Primary Nurse. ke1 21:06 Bed in low position. Call light in reach. Side rails up X 1. ke1 22:11 Lan Perry DO is Referral Physician. ms3 22:26 No provider procedures requiring assistance completed. ke1 22:34 IV discontinued. ke1 Administered Medications: 21:02 Drug: Aspirin Chewable Tablet 324 mg Route: PO; ke1 Medication: 22:27 VIS not applicable for this client. ke1 Outcome: 22:12 Discharge ordered by MD. ms3 22:34 Discharged to home ambulatory. ke1 22:34 Condition: good 22:34 Discharge instructions given to patient. 22:34 Patient left the ED. ke1 Signatures: Dispatcher [employer] EDMS Olvin Wetzel DO DO ms3 Ro Cornell Lynsea RN RN ll3 Bia Watson RN RN ke1 Rayna Michelle ed2
[2022-03-20 23:25] VITALS: TEMP 98.8
[2022-03-20 23:26] VITALS: BP 129/71; O2SAT 100
--- NOTE | 2022-03-23 17:05 | EKG ---
Test Date: 2022-03-20 Test Time: 20:03:25 Bag Checker: ED MEASUREMENT RESULTS: Intervals: Rate: 91 [place]: 124 QRSD: 114 QT: 384 QTc: 472 [place]: P: 72 [place]: 124 QRS: 94 T: 42 INTERPRETIVE STATEMENTS: Normal sinus rhythm Rightward axis Incomplete right bundle branch block Borderline ECG Compared to ECG 03/05/2014 11:00:42 Right-axis deviation now present Electronically Signed On 03-23-22 16:58:28 CARDIAC NURSE PRACTITIONER by Braxton Wilson
== END 2022-03-20 22:34 | disposition home or self-care (01) ==
LOC: ER 19:32
DX: U07.1 COVID-19 (principal); R06.02 Shortness of breath; M79.10 Myalgia, unspecified site; E11.9 Type 2 diabetes mellitus without complications; I10 Essential (primary) hypertension
CPT/HCPCS: 36415; 71045; 80048; 83735; 84484; 85025; 85379; 93005; 99284